=== PATIENT | female | born 1955 | race Caucasian/White ===

== ENCOUNTER 2016-11-10 12:43 | Emergency (ER) | payer MEDICAID ==
[2016-11-10 13:02] VITALS: BP 152/78
--- NOTE | 2016-11-10 14:27 | ED Physician Documentation ---
PD HPI Fall - Stated complaint Stated Complaint: L ANKLE INJ/RIBS AND CHEST PX - Chief complaint Chief Complaint: Ext Problem - History obtained from History obtained from: Patient, Family - History of Present Illness Mechanism of injury: Tripped Fall distance: Standing position Where injury occurred: Home Timing - onset: How many days ago (3) Injury(ies) location: Chest, Left Lower Extremity Quality of pain: Pain Associated symptoms: No: LOC, AMS, Amnesia, Seizures, Ear drainage, Nasal drainage Symptoms improve with: Rest, Ice Worsens with: Movement Contributing factors: No: Anticoagulated Similar symptoms before: Has not had sx before Recently seen: Not recently seen - Additional information Additional information: 60-year-old female Was walking down some stairs slipped and twisted her ankle and fell onto her right anterior chest. She has a lot of swelling over the dorsum and lateral aspect of the foot she has been walking on the ball of her foot on that side and over the last 3 days she has had increased pain in the right anterior chest wall. She does not have any shortness of breath or syncope. Review of Systems Constitutional: denies: Fever Nose: denies: Congestion Cardiac: reports: Chest pain / pressure Respiratory: denies: Cough GI: denies: Vomiting : denies: Dysuria, Frequency Skin: denies: Rash Musculoskeletal: reports: Joint pain, Joint swelling, Pain with weight bearing. 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 - Present Medications Home Medications: Ambulatory Orders Medication Instructions Recorded Confirmed Ibuprofen 200 mg PO Q6H PRN 01/14/16 01/14/16 HYDROcod/ACETAM 5/325 [[place] 5/325] 1 - 2 ea PO Q6H PRN #15 tablet 11/10/16 - Allergies Allergies/Adverse Reactions: Allergies Allergy/AdvReac Type Severity Reaction Status Date / Time Latex, Natural Rubber AdvReac Rash Verified 11/10/16 13:02 dairy products AdvReac Emesis Uncoded 11/10/16 13:02 - Social History Does the pt smoke?: Yes Smoking Status: Current every day smoker Does the pt drink ETOH?: Yes Does the pt have substance abuse?: Yes - Immunizations Immunizations are current?: Yes PD ED PE NORMAL - Vitals Vital signs reviewed: Yes (hypertension ) - General General: No acute distress, Well developed/nourished - HEENT HEENT: Atraumatic, PERRL - Neck Neck: Supple, no meningeal sign - Cardiac Cardiac: RRR, No murmur - Respiratory Respiratory: No respiratory distress, Other (course sounds on the right ) - Abdomen Abdomen: Soft, Non tender - Back Back: No CVA TTP, No spinal TTP - Derm Derm: Normal color, Warm and dry, No rash - Extremities Extremities: Other (There is swelling ecchymosis and tenderness to the lateral malleolus and no tenderness to the proximal fib or the proximal 5th MT. ) - Neuro Neuro: No motor deficit, No sensory deficit - Psych Psych: Normal mood, Normal affect Results - Vitals Vitals: Vital Signs - 24 hr 11/10/16 12:59 Temperature 36.6 C Heart Rate 83 Respiratory 14 Rate Blood Pressure 152/78 H O2 Saturation 100 Oxygen O2 Source Room air - Rads (name of study) ribs with PA chest Radiology: Prelim report reviewed (Impression: 1. No acute cardiopulmonary process.2. No fracture identified.), EMP read indepedently, See rad report Left ankle Radiology: Prelim report reviewed (Impression: 1. Small plantar calcaneal osteophyte formation. Cortical deformity at the distal fibula, possible old healed fracture. Prominent lateral soft tissue swelling.), EMP read indepedently, See rad report PD MEDICAL DECISION MAKING - ED course Complexity details: reviewed results, re-evaluated patient, considered differential, d/w patient, d/w family ED course: 60 y/o female with a GLF and injury to the ankle and chest wall has chest wall pain to palpation and a lot of ankle swelling and ecchymosis. She is placed into an ankle stirrup and given dexamethasone and we will provide a limited amount of pain medication. Departure - Departure Disposition: 01 Home, Self Care Clinical Impression: Chest wall contusion Qualifiers: Encounter type: initial encounter Laterality: right Qualified Code(s): S20.211A - Contusion of right front wall of thorax, initial encounter Ankle sprain Qualifiers: Encounter type: initial encounter Involved ligament of ankle: calcaneofibular ligament Laterality: right Qualified Code(s): S93.411A - Sprain of calcaneofibular ligament of right ankle, initial encounter Condition: Stable Instructions: ED Sprain Ankle W X Ray, ED Contusion Chest Wall Follow-Up: Geneva Woodward ARNP [Primary Care Provider] - Prescriptions: HYDROcod/ACETAM 5/325 [[place] 5/325] 1 - 2 ea PO Q6H PRN #15 tablet PRN Reason: Pain Discharge Date/Time: 11/10/16 14:50
--- NOTE | 2016-11-10 14:38 | XRAY Preliminary Report ---
Exam: XR Ankle 3 View LT IMPRESSION: 1. Small plantar calcaneal enthesophyte formation. 2. Cortical deformity in the distal fibula, possible old healed fracture. 3. Prominent lateral soft tissue swelling. [facility] SITE ID: [id number]
[2016-11-10] MEDS ORDERED: DEXAMETHASONE 10 MG/ML VIAL PO STA (14:39)
--- NOTE | 2016-11-10 14:40 | XRAY Preliminary Report ---
Exam: XR Ribs w/PA Chest RT IMPRESSION: 1. No acute cardio pulmonary process. 2. No fracture identified. [facility] SITE ID: [id number]
--- NOTE | 2016-11-10 14:41 | XRAY Report ---
EXAM: LEFT ANKLE RADIOGRAPHY EXAM DATE: 11/10/2016 01:45 PM. CLINICAL HISTORY: Pain after fall. COMPARISON: None. TECHNIQUE: 3 views. FINDINGS: Bones: Cortical deformity in the distal fibular metadiaphysis. This could represent an old healed fra cture. No definite acute fracture identified. Small plantar calcaneal enthesophyte formation. Joints: Mild tibiotalar joint space narrowing. Soft Tissues: Lateral soft tissue swelling. IMPRESSION: 1. Small plantar calcaneal enthesophyte formation. 2. Cortical deformity in the distal fibula, possible old healed fracture. 3. Prominent lateral soft tissue swelling. [facility] Referring Provider Line: [phone] SITE ID: [id number]
[2016-11-10] MEDS ORDERED: CHERRY SYRUP 10 ML UDC PO ONE (14:43)
[2016-11-10] MEDS ORDERED: DEXAMETHASONE 10 MG/ML VIAL ONE (14:43)
--- NOTE | 2016-11-10 14:43 | XRAY Report ---
EXAM: RIGHT RIB RADIOGRAPHY EXAM DATE: 11/10/2016 02:14 PM. CLINICAL HISTORY: Chest contusion. COMPARISON: None. TECHNIQUE: 3 views. FINDINGS: Heart size appears normal. No pulmonary consolidation or edema. No fracture identified. Degenerative changes in the acromioclavicular joints. IMPRESSION: 1. No acute cardio pulmonary process. 2. No fracture identified. [facility] Referring Provider Line: [phone] SITE ID: [id number]
== END 2016-11-10 14:50 | disposition home or self-care (01) ==
LOC: ED 12:43
DX: S20.211A Contusion of right front wall of thorax, initial encounter (principal); S93.411A Sprain of calcaneofibular ligament of right ankle, initial encounter; W10.8XXA Fall (on) (from) other stairs and steps, initial encounter; Y92.018 Other place in single-family (private) house as the place of occurrence of the external cause; F17.200 Nicotine dependence, unspecified, uncomplicated
CPT/HCPCS: 71101; 73610; 99283; A9270

== ENCOUNTER 2018-06-17 11:03 | Inpatient (IN) | payer MEDICAID ==
--- NOTE | 2018-06-17 12:27 | ED Physician Documentation ---
History of Present Illness - Stated complaint Stated Complaint: SOA/WEAKNESS - Chief complaint Chief Complaint: Resp - Additonal information Additional information: 62-year-old female presents the emergency department with increasing shortness of breath on exertion for a significant period of time. The patient reports increased peripheral edema over the past month in addition to the shortness of breath. The patient reports increasing generalized weakness. The patient does smoke daily. The patient denies fevers, chills, cough, congestion. The patient does report pain in her teeth and is concerned about a dental infection. Symptoms are described as moderate and worsening. No other associated symptoms. No triggering factors. No relieving factors Review of Systems Constitutional: reports: Fatigue. denies: Fever, Chills Eyes: denies: Discharge Ears: denies: Ear pain Nose: denies: Congestion Throat: reports: Dental pain / toothache. denies: Sore throat Cardiac: denies: Chest pain / pressure Respiratory: reports: Dyspnea GI: denies: Abdominal Pain : denies: Dysuria Skin: denies: Rash Musculoskeletal: denies: Neck pain Neurologic: reports: Generalized weakness. 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 - Present Medications Home Medications: Ambulatory Orders Medication Instructions Recorded Confirmed Ibuprofen 400 mg PO BID PRN 06/17/18 06/17/18 - Allergies Allergies/Adverse Reactions: Allergies Allergy/AdvReac Type Severity Reaction Status Date / Time Latex, Natural Rubber AdvReac Rash Verified 11/10/16 13:02 dairy products AdvReac Emesis Uncoded 11/10/16 13:02 - Social History Does the pt smoke?: Yes Smoking Status: Current every day smoker Does the pt drink ETOH?: Yes Does the pt have substance abuse?: Yes Substance Use and Type: Marijuana - Immunizations Immunizations are current?: Yes - POLST Patient has POLST: No PD ED PE NORMAL - General General: Alert and oriented X 3, No acute distress - HEENT HEENT: Atraumatic, PERRL, EOMI, Ears normal, Moist mucous membranes, Pharynx benign - Neck Neck: Supple, no meningeal sign - Cardiac Cardiac: RRR, Strong equal pulses - Respiratory Respiratory: No respiratory distress, Clear bilaterally - Abdomen Abdomen: Soft, Non tender, Non distended - Derm Derm: Normal color - Extremities Extremities: No deformity - Neuro Neuro: Alert and oriented X 3, Normal speech - Psych Psych: Normal mood Results - Vitals Vitals: Vital Signs - 24 hr 06/17/18 06/17/18 06/17/18 11:22 12:01 14:00 Temperature 36.8 C Heart Rate 97 95 95 Respiratory 16 12 20 Rate Blood Pressure 123/95 H 123/90 H 124/86 H O2 Saturation 100 100 99 Oxygen O2 Source Room air - EKG (time done) 12:23 Rate: Rate (enter#) Rhythm: NSR Intervals: Normal OK, QRS normal Ischemia: Non specific changes Compare to prior EKG: Old EKG unavailable - Labs Labs: Laboratory Tests 06/17/18 06/17/18 06/17/18 12:52 12:52 12:52 WBC 5.7 RBC 2.51 L Hgb 3.8 L* Hct 15.0 L* MCV 59.5 L MCH 15.0 L MCHC 25.2 L RDW 21.8 H Plt Count 157 MPV 8.9 Neut # (Auto) 4.1 Lymph # (Auto) 1.0 L Garden # (Auto) 0.4 Eos # (Auto) 0.1 Baso # (Auto) 0.1 Absolute Nucleated RBC 0.02 Nucleated RBC % 0.4 Manual Slide Review Indicated Platelet Estimate NORMAL (130-450,000) Platelet Morphology NORMAL APPEARANCE RBC Morph Micro Appear 1+ SCHISTOCYTES VBG pH VBG pCO2 VBG pO2 VBG HCO3 VBG Total CO2 VBG O2 Saturation VBG Base Excess Sodium 138 Potassium 3.4 L Chloride 100 L Carbon Dioxide 27 Anion Gap 11.0 BUN 11 Creatinine 0.5 Estimated GFR (MDRD) 126 Glucose 116 H Calcium 8.7 Total Bilirubin 1.1 H AST 22 ALT 14 Alkaline Phosphatase 103 Troponin I < 0.04 B-Natriuretic Peptide Total Protein 7.4 Albumin 3.7 Globulin 3.7 Albumin/Globulin Ratio 1.0 Lipase 39 Urine Color Urine Clarity Urine pH Ur Specific [place] Urine Protein Urine Glucose (UA) Urine Ketones Urine Occult Blood Urine Nitrite Urine Bilirubin Urine Urobilinogen Ur Leukocyte Esterase Ur Microscopic Review Urine Culture Comments 06/17/18 06/17/1806/17/19 12:52 12:52 13:20 WBC RBC Hgb Hct MCV MCH MCHC RDW Plt Count MPV Neut # (Auto) Lymph # (Auto) Garden # (Auto) Eos # (Auto) Baso # (Auto) Absolute Nucleated RBC Nucleated RBC % Manual Slide Review Platelet Estimate Platelet Morphology RBC Morph Micro Appear VBG pH 7.417 H VBG pCO2 42.8 VBG pO2 51.5 H VBG HCO3 27.0 VBG Total CO2 28.3 VBG O2 Saturation 83.2 H VBG Base Excess 2.2 H Sodium Potassium Chloride Carbon Dioxide Anion Gap BUN Creatinine Estimated GFR (MDRD) Glucose Calcium Total Bilirubin AST ALT Alkaline Phosphatase Troponin I B-Natriuretic Peptide 474 H Total Protein Albumin Globulin Albumin/Globulin Ratio Lipase Urine Color YELLOW Urine Clarity CLEAR Urine pH 8.0 H Ur Specific [place] 1.020 Urine Protein NEGATIVE Urine Glucose (UA) NEGATIVE Urine Ketones NEGATIVE Urine Occult Blood NEGATIVE Urine Nitrite NEGATIVE Urine Bilirubin NEGATIVE Urine Urobilinogen 1 (NORMAL) Ur Leukocyte Esterase NEGATIVE Ur Microscopic Review NOT INDICATED Urine Culture Comments NOT INDICATED PD MEDICAL DECISION MAKING - ED course ED course: The patient has a significantly low hemoglobin which appears to have been a slow insidious process. This may be from a gastric etiology on further discussion with the patient she takes ibuprofen daily, at least 400 mg twice daily. The patient is also a tobacco smoker. The patient will require admission to the hospital for a blood transfusion and further investigation. The findings and plan were discussed with the patient who understands and agrees to the plan. The case was discussed with the hospitalist Dr. Wylie who accepts the patient onto her service Departure - Departure Disposition: 66 [facility] DC/Xfer Clinical Impression: Severe anemia, High output congestive heart failure, Weakness, Dental infection Condition: Fair
--- NOTE | 2018-06-17 12:27 | XRAY Report ---
Reason: sob Procedure Date: 06/17/2018 Accession Number: [id number] / [id number] Procedure: XR - Chest 2 View X-Ray CPT Code: 74740 FULL RESULT: EXAM: CHEST RADIOGRAPHY EXAM DATE: 06/17/2018 12:17 PM. CLINICAL HISTORY: Chronic cough. Shortness of air. Worsening shortness of air with tachycardia. History of smoking. COMPARISON: RIBS W/PA CHEST RT 11/10/2016 1:44 PM. TECHNIQUE: 2 views. FINDINGS: Lungs/Pleura: Bronchial thickening. No dense consolidation . No pleural effusions. Hyperinflation. No pneumothorax. Mediastinum: Heart is enlarged. Aorta is tortuous. Aortic atherosclerosis. Other: Degenerative changes of the thoracic spine. IMPRESSION: 1. Hyperinflation. 2. Cardiomegaly. 3. Mild bronchial thickening which can be seen with bronchitis. Findings may also be the result of the patient's history of smoking. [facility]
[2018-06-17 13:05] LABS: VBG BASE EXCESS 2.2 mmol/L (-2 - +2); VBG PCO2 42.8 mmHg (41-51); VBG PH 7.417 (7.31-7.41); VBG PO2 51.5 mmHg (25-47); VBG TOTAL CO2 28.3 mmol/L (24-29)
[2018-06-17 13:14] LABS: BASOPHILS # (AUTO) 0.1 10^3/uL (0.0-0.1); BASOPHILS % (AUTO) 1.6 %; EOSINOPHILS # (AUTO) 0.1 10^3/uL (0.0-0.7); EOSINOPHILS % (AUTO) 1.2 %; LYMPHOCYTES % (AUTO) 17.9 %; MEAN CORPUSCULAR HGB CONC 25.2 g/dL (32.0-36.0); MEAN CORPUSCULAR VOLUME 59.5 fL (81.0-99.0); MEAN PLATELET VOLUME 8.9 fL (7.9-10.8); MONOCYTES # (AUTO) 0.4 10^3/uL (0.0-1.0); MONOCYTES % (AUTO) 7.3 %; NEUTROPHILS # (AUTO) 4.1 10^3/uL (1.5-6.6); PLT - PLATELET COUNT 157 10^3/uL (130-450); RED BLOOD COUNT 2.51 10^6/uL (4.20-5.40); RED CELL DISTRIBUTION WIDTH 21.8 % (12.0-15.0); WHITE BLOOD COUNT 5.7 x10^3/uL (4.8-10.8)
[2018-06-17 13:15] LABS: HGB - HEMOGLOBIN 3.8 g/dL (12.0-16.0)
[2018-06-17 13:25] LABS: ALBUMIN 3.7 g/dL (3.2-5.5); BILIRUBIN,TOTAL 1.1 mg/dL (0.2-1.0); CALCIUM 8.7 mg/dL (8.5-10.3); CREATININE 0.5 mg/dL (0.4-1.0); TOTAL PROTEIN 7.4 g/dL (6.7-8.2)
[2018-06-17 13:31] LABS: BILIRUBIN,URINE NEGATIVE (NEGATIVE); GLUCOSE, URINE (UA) NEGATIVE (NEGATIVE); KETONES,URINE (UA) NEGATIVE (NEGATIVE); LEUKOCYTE ESTERASE, URINE NEGATIVE (NEGATIVE); NITRITE,URINE NEGATIVE (NEGATIVE); OCCULT BLOOD,URINE NEGATIVE (NEGATIVE); PROTEIN,URINE NEGATIVE (NEGATIVE); UROBILINOGEN,URINE 1 (NORMAL) E.U./dL (NORMAL)
[2018-06-17 13:32] LABS: CLARITY,URINE CLEAR (CLEAR)
[2018-06-17 13:39] LABS: PLATELET ESTIMATE, MANUAL NORMAL (130-450,000) (NORMAL); PLATELET MORPHOLOGY NORMAL APPEARANCE (NORMAL)
[2018-06-17] MEDS ORDERED: LIDOCAINE 1% 2 ML VIAL ONE (13:50)
[2018-06-17] MEDS ORDERED: HYDROcod/ACETAM 10 MG/325 MG TABLET PO STA (14:20)
[2018-06-17] MEDS ORDERED: AMOXICILLIN 250 MG CAPSULE PO STA (14:20)
[2018-06-17] MEDS ORDERED: PROCHLORPERAZINE 10 MG/2 ML VIAL IVP PRN (14:59)
[2018-06-17] MEDS ORDERED: ONDANSETRON 4 MG/2 ML VIAL IVP PRN (14:59)
[2018-06-17] MEDS: FAMOTIDINE 20 MG/50 ML 50 ML IV SCH ×2 (15:47→21:10)
--- NOTE | 2018-06-17 15:48 | CONSULTATION NOTE ---
Referring Provider Consult Date: 06/17/18 Chief Complaint - Chief Complaint Chief Complaint: fatigue History of Present Illness - History of Present Illness HPI Comment/Other: 62 yo woman presented to the ER complaining of fatigue. Found to have a Hgb around 3. States she has had epigastric pain and dark stools for the past two months. She takes NSAIDs on a daily basis for arthritis. She believes she had a normal colonoscopy 5 years ago. 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 - POLST Patient has POLST: No Meds/Allgy - Home Medications Home Medications: Ambulatory Orders Medication Instructions Recorded Confirmed Ibuprofen 400 mg PO BID PRN 06/17/18 06/17/18 - Allergies Allergies/Adverse Reactions: Allergies Allergy/AdvReac Type Severity Reaction Status Date / Time Latex, Natural Rubber AdvReac Rash Verified 11/10/16 13:02 dairy products AdvReac Emesis Uncoded 11/10/16 13:02 Review of Systems - Constitutional Constitutional: reports: Fatigue - Gastrointestinal Gastrointestinal: reports: Abdominal pain, Change in bowel habits, Black stools Exam - Vital Signs Vital Signs: Vital Signs x48h Temp Pulse Resp BP Pulse Ox 06/17/18 14:00 95 20 124/86 H 99 06/17/18 12:01 95 12 123/90 H 100 06/17/18 11:22 36.8 C 97 16 123/95 H 100 - Physical Exam General Appearance: positive: No acute distress Eyes Bilateral: positive: Normal inspection ENT: positive: ENT inspection nml Neck: positive: Nml inspection Respiratory: positive: Chest non-tender Abdomen: positive: Non-tender Back: positive: Nml inspection Skin: positive: Color nml Extremities: positive: Non-tender Neurologic/Psychiatric: positive: Oriented x3 Conclusion/Plan - Diagnosis Diagnosis: GI bleed - Plan Plan: Pt most likely has an upper GI bleed. She would like to hold off on another colonoscopy for now. Plan for EGD tomorrow, after she has been transfused. - Lab Results Fish Bones: 06/17/18 12:52 06/17/18 12:52
[2018-06-17 15:56] LABS: INR 1.1 (0.8-1.2); PT - PROTHROMBIN TIME 12.8 secs (9.9-12.6)
[2018-06-17] MEDS ORDERED: SILVER NITRATE APPLICATOR TOP ONE (16:45)
[2018-06-17] MEDS: POTASSIUM CHLOR 10 MEQ/100 ML 10 MEQ/100 ML BAG IV SCH ×2 (17:29→18:41)
[2018-06-17] MEDS: SODIUM CHLORIDE FLUSH 0.9% 10 ML SYRINGE IVP SCH (17:36)
--- NOTE | 2018-06-17 17:51 | XRAY Report ---
Reason: CVC placement Procedure Date: 06/17/2018 Accession Number: [id number] / [id number] Procedure: XR - Chest for Line Placement CPT Code: FULL RESULT: EXAM: CHEST RADIOGRAPHY EXAM DATE: 06/17/2018 05:26 PM. CLINICAL HISTORY: CVC placement. COMPARISON: CHEST 2 VIEW 06/17/2018 12:07 PM. TECHNIQUE: 1 view. FINDINGS: Lungs/Pleura: Slight interval increase in interstitial opacities. Lung volumes are slightly increased. There is no focal consolidation. No pleural effusion or pneumothorax. Mediastinum: Prominent heart size. Interval placement of a right IJ central line to the upper SVC. Other: None. IMPRESSION: 1. Interval central line placement. 2. Increased interstitial markings which may be secondary to mild fluid overload versus acute or chronic interstitial pneumonitis. 3. No pneumothorax. 4. Prominent heart size. [facility]
[2018-06-17] MEDS: NICOTINE 14 MG PATCH TOP SCH (18:42)
[2018-06-17] MEDS ORDERED: AMPICILLIN/SULBACTAM 3 GM in SODIUM CHLORIDE 0.9% MINIBAG 100 ML IV SCH ×4 (19:00)
[2018-06-17] MEDS: ACETAMINOPHEN 325 MG TABLET PO PRN (19:47)
[2018-06-17] MEDS: SODIUM CHLORIDE FLUSH 0.9% 10 ML SYRINGE IVP PRN ×3 (20:04→23:09)
--- NOTE | 2018-06-17 20:18 | HISTORY & PHYSICAL EXAMINATION ---
DATE OF SERVICE: 06/17/2018 Physician: Geena Wylie MD HISTORY OF PRESENT ILLNESS: This is a 62-year-old white female with a history of smoking, suicidal attempt by insulin overdose in January 2016, for which she was hospitalized here and then transferred for inpatient psychiatric management. 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 She could not be fitted in, and they advised her to come to the ER, which she did today. Yesterday, she also broke off a tooth while eating and today she woke with severe swelling of her left lower face and jaw and wanted this evaluated also. In the emergency room, she described having severe dyspnea, mild orthopnea, edema of her legs and hands over the past 2 months and intermittent palpitations lasting several seconds. There were a few recent episodes of dizziness, but no syncope, and these were not associated with the palpitations. She denied any chest pain. Her labs returned back showing a hemoglobin of 3.8 with a severely low MCV, and she did report that she has had black stools for about 3-6 months. She admits to using Motrin daily for arthritic pain and especially a lot this morning because of the tooth pain. She is being admitted for management of severe anemia, probable gastrointestinal blood loss source, a dental infection, and she was found to have nonsustained ventricular tachycardia on patient monitor while in the ER, which correlated with her sensation of palpitations. She also has new congestive heart failure by clinical exam, which may be high output failure secondary to the severe anemia. PAST MEDICAL HISTORY: Suicide attempt 4 years ago, arthritis and smoking history. ALLERGIES: LATEX, NATURAL RUBBER AND LACTOSE INTOLERANCE. MEDICATIONS: Motrin 400 mg b.i.d. REVIEW OF SYSTEMS: She has "soft teeth" and prior dental problems. The patient had a very stressful year 1 year ago when she moved in with her [id number] and [id number], and their 2 teenage children. The [id number] from diabetic complications. Then, the [id number] suddenly after pneumonia, and the patient was in charge of the 2 teenage children and their house and belongings. During this time, she would be smoking an entire pack of cigarettes a day, which has now decreased to half pack a day, when she finished with handling their possessions and their house. She had no place to live and lived in her own car for the first 3 weeks of May. Now, she has her own place. She works daily 7 days a week with occasional days off. She denies fever, but has a morning cough. No diarrhea. She does have LUQ pain when eating spicy food or drinking coffee, or pressing over the stomach area for a year, and she herself is worried about an ulcer. A comprehensive review of systems was performed and the pertinent positives are listed, the rest are negative. SOCIAL HISTORY: Half a pack a day smoker, rare marijuana use, rare mixed drink intake, but 1 year ago during her increased stress, she was a heavy drinker of liquor, she reports. FAMILY HISTORY: Cancer in her father and CHF in her mother. She has 2 female children who are healthy. PHYSICAL EXAMINATION GENERAL: Middle-aged white female. She is in mild distress from swelling of her left lower jaw, which makes it too painful to smile. VITAL SIGNS: Blood pressure 130/60, heart rate 95 in sinus rhythm, afebrile, room air saturation 99%. HEENT: Mouth reveals a broken left lower first molar and soft tissue swelling around it, no bleeding. The lower jaw is swollen and edematous. There is no redness, there is warmth. Oral mucosa is moist. NECK: No JVD or lymph nodes. No thyromegaly. CHEST: Clear breath sounds are at the anterior bases. HEART: Heart sounds are distant. No audible murmur. There is no heave or gallop. ABDOMEN: Soft with positive bowel sounds. It is tender to deep palpation only in the left upper quadrant. There is no guarding, rebound or organomegaly. EXTREMITIES: Have 1+ edema to below the knees and in the arms 1+ edema to below the elbows. NEUROLOGIC: Grossly intact. LABORATORY DATA: Sodium 138, potassium 3.4, magnesium 2.1, normal BUN and creatinine. BNP 474. Troponin is normal, not detectable. Lipase normal. White blood count 5.7 with a normal differential, hemoglobin 3.8 with an MCV of 59, platelet count 157,000. INR normal at 1.1. Blood gas had pH of 7.41. Urinalysis was unremarkable with no bacteria seen. Chest x-ray: cardiomegaly and mild CHF. EKG: normal sinus rhythm, LVH with strain pattern. There was no old EKG available for comparison. IMPRESSION/DIAGNOSES 1. Gastrointestinal blood loss anemia. 2. Upper gastrointestinal bleed suspected, possibly from NSAID use. 3. High output heart failure suspected. 4. Ventricular tachycardia, correlate with sensation of palpitations. 5. Hypokalemia. 6. Dental abscess. 7. Nicotine dependence. PLAN: 1. Admit the patient on telemetry to a medical/surgical floor, begin blood transfusions after type and crossmatch. Four units will be ordered with Lasix in between units. 2. Surgery consult for upper endoscopy and if needed for colonoscopy. 3. Begin Pepcid IV and avoid nonsteroidals and aspirin-containing products. 4. Watch her I's and O's carefully and continue with diuretics daily. 5. Check troponins x3. 6. Obtain an Echo to evaluate LV and RV contractility. 7. Correct low potassium, which may be the cause for the V-tach. 8. Begin treatment for her dental abscess with Unasyn 3 grams IV every 6 hours, as well as pain medications, using Tylenol and codeine. 9. Nicotine patch will be ordered for her tobacco urges. 10. Sputum culture will be obtained for her complaint of a cough, which may be a smoker's cough, however. DEEP VENOUS THROMBOSIS PROPHYLAXIS: SCDs. CODE STATUS: FULL CODE. ATTESTATION: The patient is expected to be discharged or transferred to another facility within 96 hours: Yes. TD: 06/17/2018 18:46 MIK
[2018-06-17] MEDS: FUROSEMIDE 20 MG/2 ML VIAL IVP SCH (23:07)
[2018-06-18] MEDS ORDERED: SODIUM CHLORIDE 0.9% 500 ML IV ONE ×2 (01:02→05:14)
[2018-06-18] MEDS: ACETAMINOPHEN/CODEINE 300 MG/30 MG TABLET PO PRN ×3 (01:07→21:46)
[2018-06-18] MEDS: SODIUM CHLORIDE FLUSH 0.9% 10 ML SYRINGE IVP SCH ×4 (01:08→14:55)
[2018-06-18] MEDS: AMPICILLIN/SULBACTAM 3 GM in SODIUM CHLORIDE 0.9% MINIBAG 100 ML IV SCH ×4 (03:31→21:00)
[2018-06-18] MEDS: SODIUM CHLORIDE FLUSH 0.9% 10 ML SYRINGE IVP PRN ×5 (03:36→21:47)
[2018-06-18] MEDS: FUROSEMIDE 20 MG/2 ML VIAL IVP SCH ×2 (04:41→14:55)
[2018-06-18] MEDS: FAMOTIDINE 20 MG/50 ML 50 ML IV SCH (08:24)
--- NOTE | 2018-06-18 08:30 | ANESTHESIA ---
Pre-Anesthesia VS, & Labs - Diagnosis Diagnosis GI bleed - Procedure EGD Vital Signs: Temp Pulse Resp BP Pulse Ox 36.7 C 80 20 139/68 H 98 06/18/18 05:42 06/18/18 05:42 06/18/18 05:42 06/18/18 05:42 06/18/18 04:48 Height 5 ft 5 in Weight (kg) 75 kg Body Mass Index 27.8 - Is Patient ?: No, Not Applicable - Lab Results Current Lab Results: Laboratory Tests 06/18/18 01:11: Troponin I < 0.04 06/17/18 19:10: Troponin I < 0.04 06/17/18 14:00: Blood Type Cancelled, Antibody Screen Cancelled, Crossmatch IS Only See Detail 06/17/18 14:00: Blood Type O POSITIVE, Antibody Screen NEGATIVE, Crossmatch IS Only See Detail 06/17/18 12:52: PT 12.8 H, INR 1.1 06/17/18 12:52: Magnesium 2.1 06/17/18 12:52: Blood Type Recheck O POSITIVE 06/17/18 12:52: VBG pH 7.417 H, VBG pCO2 42.8, VBG pO2 51.5 H, VBG HCO3 27.0, VBG Total CO2 28.3, VBG O2 Saturation 83.2 H, VBG Base Excess 2.2 H 06/17/18 12:52: B-Natriuretic Peptide 474 H 06/17/18 12:52: Troponin I < 0.04 06/17/18 12:52: Sodium 138, Potassium 3.4 L, Chloride 100 L, Carbon Dioxide 27, Anion Gap 11.0, BUN 11, Creatinine 0.5, Estimated GFR (MDRD) 126, Glucose 116 H, Calcium 8.7, Total Bilirubin 1.1 H, AST 22, ALT 14, Alkaline Phosphatase 103, Total Protein 7.4, Albumin 3.7, Globulin 3.7, Albumin/Globulin Ratio 1.0, Lipase 39 06/17/18 12:52: WBC 5.7, RBC 2.51 L, Hgb 3.8 L*, Hct 15.0 L*, MCV 59.5 L, MCH 15.0 L, MCHC 25.2 L, RDW 21.8 H, Plt Count 157, MPV 8.9, Neut # (Auto) 4.1, Lymph # (Auto) 1.0 L, [place] # (Auto) 0.4, Eos # (Auto) 0.1, Baso # (Auto) 0.1, Absolute Nucleated RBC 0.02, Nucleated RBC % 0.4, Manual Slide Review Indicated, Platelet Estimate NORMAL (130-450,000), Platelet Morphology NORMAL APPEARANCE, RBC Morph Micro Appear 1+ SCHISTOCYTES Lab results reviewed: Yes Fish Bones: 06/17/18 12:52 06/17/18 12:52 Home Medications and Allergies Home Medications: Ambulatory Orders Ibuprofen 400 mg PO BID PRN 06/17/18 Active Medications Acetaminophen (Tylenol) 650 mg PO Q4HR PRN PRN Reason: Pain 1 to 4 Last Admin: 06/17/18 19:47 Dose: 650 mg Acetaminophen/Codeine Phosphate (Tylenol #3) 1 tab PO Q4HR PRN PRN Reason: PAIN Last Admin: 06/18/18 05:47 Dose: 1 tab Furosemide (Lasix Inj 20mg Vial) 20 mg IVP TID [facility] Stop: 06/18/18 21:59 Last Admin: 06/18/18 04:41 Dose: 20 mg Heparin Sodium (Beef Lung) () 30 - 50 unit IVP PRN PRN PRN Reason: Central Line Protocol (<24 hr) Famotidine (Pepcid 20 Mg/50 Ml) 50 mls @ 100 mls/hr IV BID [facility] Last Infusion: 06/17/18 21:40 Dose: Infused Ampicillin Sodium/Sulbactam (Sodium 3 gm/ Sodium Chloride) 100 mls @ 200 mls/hr IV Q6H [facility] Last Infusion: 06/18/18 04:24 Dose: Infused Nicotine (Nicoderm) 1 patch TOP DAILY [facility] Last Admin: 06/17/18 18:42 Dose: 1 patch Ondansetron HCl (Zofran Inj) 4 mg IVP Q6HR PRN PRN Reason: Nausea / Vomiting Polyethylene Glycol (Miralax) 17 gm PO DAILY [facility] Prochlorperazine Edisylate (Compazine Inj) 10 mg IVP Q6HR PRN PRN Reason: Nausea / Vomiting Sodium Chloride (Normal Saline Flush 0.9%) 10 ml IVP PRN PRN PRN Reason: NEEDED PER PROVIDER ORDERS Last Admin: 06/18/18 03:36 Dose: 10 ml Sodium Chloride (Normal Saline Flush 0.9%) 10 ml IVP 0100,0900,1700 PIERRE Last Admin: 06/18/18 04:45 Dose: 10 ml Sodium Chloride (Normal Saline Flush 0.9%) 20 ml IVP PRN PRN PRN Reason: After Blood Draw Ibuprofen 400 mg PO BID PRN 06/17/18 Allergies/Adverse Reactions: Allergies Allergy/AdvReac Type Severity Reaction Status Date / Time Latex, Natural Rubber AdvReac Rash Verified 11/10/16 13:02 dairy products AdvReac Emesis Uncoded 11/10/16 13:02 Anes History & Medical History - Medical History Cardiovascular: reports: None Pulmonary: reports: None Gastrointestinal: reports: Other Urinary: reports: None Musculoskeletal: reports: None Endocrine/Autoimmune: reports: None Skin: reports: None Smoking Status: Current every day smoker - Surgical History Gynecologic: section
--- NOTE | 2018-06-18 08:32 | ANESTHESIA ---
Pre-Anesthesia VS, & Labs - Diagnosis Diagnosis GI bleed - Procedure EGD Vital Signs: Temp Pulse Resp BP Pulse Ox 36.7 C 80 20 139/68 H 98 06/18/18 05:42 06/18/18 05:42 06/18/18 05:42 06/18/18 05:42 06/18/18 04:48 Height 5 ft 5 in Weight (kg) 75 kg Body Mass Index 27.8 - NPO >8 hours - Is Patient ?: No, Not Applicable - Lab Results Current Lab Results: Laboratory Tests 06/18/18 01:11: Troponin I < 0.04 06/17/18 19:10: Troponin I < 0.04 06/17/18 14:00: Blood Type Cancelled, Antibody Screen Cancelled, Crossmatch IS Only See Detail 06/17/18 14:00: Blood Type O POSITIVE, Antibody Screen NEGATIVE, Crossmatch IS Only See Detail 06/17/18 12:52: PT 12.8 H, INR 1.1 06/17/18 12:52: Magnesium 2.1 06/17/18 12:52: Blood Type Recheck O POSITIVE 06/17/18 12:52: VBG pH 7.417 H, VBG pCO2 42.8, VBG pO2 51.5 H, VBG HCO3 27.0, VBG Total CO2 28.3, VBG O2 Saturation 83.2 H, VBG Base Excess 2.2 H 06/17/18 12:52: B-Natriuretic Peptide 474 H 06/17/18 12:52: Troponin I < 0.04 06/17/18 12:52: Sodium 138, Potassium 3.4 L, Chloride 100 L, Carbon Dioxide 27, Anion Gap 11.0, BUN 11, Creatinine 0.5, Estimated GFR (MDRD) 126, Glucose 116 H, Calcium 8.7, Total Bilirubin 1.1 H, AST 22, ALT 14, Alkaline Phosphatase 103, Total Protein 7.4, Albumin 3.7, Globulin 3.7, Albumin/Globulin Ratio 1.0, Lipase 39 06/17/18 12:52: WBC 5.7, RBC 2.51 L, Hgb 3.8 L*, Hct 15.0 L*, MCV 59.5 L, MCH 15.0 L, MCHC 25.2 L, RDW 21.8 H, Plt Count 157, MPV 8.9, Neut # (Auto) 4.1, L ymph # (Auto) 1.0 L, [place] # (Auto) 0.4, Eos # (Auto) 0.1, Baso # (Auto) 0.1, Absolute Nucleated RBC 0.02, Nucleated RBC % 0.4, Manual Slide Review Indicated, Platelet Estimate NORMAL (130-450,000), Platelet Morphology NORMAL APPEARANCE, RBC Morph Micro Appear 1+ SCHISTOCYTES Fish Bones: 06/17/18 12:52 06/17/18 12:52 Home Medications and Allergies Home Medications: Ambulatory Orders Ibuprofen 400 mg PO BID PRN 06/17/18 Active Medications Acetaminophen (Tylenol) 650 mg PO Q4HR PRN PRN Reason: Pain 1 to 4 Last Admin: 06/17/18 19:47 Dose: 650 mg Acetaminophen/Codeine Phosphate (Tylenol #3) 1 tab PO Q4HR PRN PRN Reason: PAIN Last Admin: 06/18/18 05:47 Dose: 1 tab Furosemide (Lasix Inj 20mg Vial) 20 mg IVP TID [facility] Stop: 06/18/18 21:59 Last Admin: 06/18/18 04:41 Dose: 20 mg Heparin Sodium (Beef Lung) () 30 - 50 unit IVP PRN PRN PRN Reason: Central Line Protocol (<24 hr) Famotidine (Pepcid 20 Mg/50 Ml) 50 mls @ 100 mls/hr IV BID [facility] Last Admin: 06/18/18 08:24 Dose: 100 mls/hr Ampicillin Sodium/Sulbactam (Sodium 3 gm/ Sodium Chloride) 100 mls @ 200 mls/hr IV Q6H [facility] Last Infusion: 06/18/18 04:24 Dose: Infused Nicotine (Nicoderm) 1 patch TOP DAILY [facility] Last Admin: 06/17/18 18:42 Dose: 1 patch Ondansetron HCl (Zofran Inj) 4 mg IVP Q6HR PRN PRN Reason: Nausea / Vomiting Polyethylene Glycol (Miralax) 17 gm PO DAILY [facility] Prochlorperazine Edisylate (Compazine Inj) 10 mg IVP Q6HR PRN PRN Reason: Nausea / Vomiting Sodium Chloride (Normal Saline Flush 0.9%) 10 ml IVP PRN PRN PRN Reason: NEEDED PER PROVIDER ORDERS Last Admin: 06/18/18 08:20 Dose: 10 ml Sodium Chloride (Normal Saline Flush 0.9%) 10 ml IVP 0100,0900,1700 PIERRE Last Admin: 06/18/18 08:16 Dose: 10 ml Sodium Chloride (Normal Saline Flush 0.9%) 20 ml IVP PRN PRN PRN Reason: After Blood Draw Ibuprofen 400 mg PO BID PRN 06/17/18 Allergies/Adverse Reactions: Allergies Allergy/AdvReac Type Severity Reaction Status Date / Time Latex, Natural Rubber AdvReac Rash Verified 11/10/16 13:02 dairy products AdvReac Emesis Uncoded 11/10/16 13:02 Anes History & Medical History - Anesthetic History Anesthesia Complications: reports: No previous complications Family history of Anesthesia Complications: Denies Family history of Malignant Hyperthermia: Denies - Medical History Cardiovascular: reports: None Pulmonary: reports: None Gastrointestinal: reports: Other Urinary: reports: None Musculoskeletal: reports: None Endocrine/Autoimmune: reports: None Skin: reports: None Smoking Status: Current every day smoker - Surgical History Gynecologic: section Exam General: Alert, Oriented x3, Cooperative, No acute distress Dental: Other (bad teeth with abcess by one tooth) Mouth Openin Fingerbreadth Neck Mobility: Normal Mallampati classification: III Thyromental Distance: 4-6 cm Respiratory: Lungs clear Cardiovascular: Regular rate, Normal S1, Normal S2, No murmurs Cognitive Status: Within normal limits Plan Anesthesia Type: MAC Consent for Procedure(s) Verified and Reviewed: No Code Status: Attempt Resuscitation ASA classification: 2-Mild systemic disease Is this case an emergency?: Yes
[2018-06-18] MEDS ORDERED: EPINEPHrine 1 MG/ML AMP ONE (08:42)
[2018-06-18 09:00] LABS: BASOPHILS # (AUTO) 0.1 10^3/uL (0.0-0.1); BASOPHILS % (AUTO) 0.9 %; EOSINOPHILS # (AUTO) 0.1 10^3/uL (0.0-0.7); EOSINOPHILS % (AUTO) 1.1 %; HGB - HEMOGLOBIN 8.3 g/dL (12.0-16.0); LYMPHOCYTES # (AUTO) 0.6 10^3/uL (1.5-3.5); LYMPHOCYTES % (AUTO) 8.1 %; MEAN CORPUSCULAR HEMOGLOBIN 21.7 pg (27.0-31.0); MEAN CORPUSCULAR HGB CONC 31.1 g/dL (32.0-36.0); MEAN PLATELET VOLUME 8.5 fL (7.9-10.8); MONOCYTES # (AUTO) 0.5 10^3/uL (0.0-1.0); MONOCYTES % (AUTO) 7.4 %; NEUTROPHILS # (AUTO) 5.7 10^3/uL (1.5-6.6); NEUTROPHILS % (AUTO) 82.5 %; PLT - PLATELET COUNT 127 10^3/uL (130-450); RED BLOOD COUNT 3.84 10^6/uL (4.20-5.40); WHITE BLOOD COUNT 6.9 x10^3/uL (4.8-10.8)
[2018-06-18] MEDS ORDERED: NICOTINE 14 MG PATCH TOP SCH (09:00)
[2018-06-18 09:02] LABS: CALCIUM 8.6 mg/dL (8.5-10.3); CREATININE 0.5 mg/dL (0.4-1.0)
[2018-06-18] MEDS ORDERED: LACTATED RINGERS 1,000 ML IV ONE (09:11)
[2018-06-18 09:23] LABS: PLATELET MORPHOLOGY RARE GIANT PLATELETS (NORMAL)
[2018-06-18 09:24] LABS: PLATELET ESTIMATE, MANUAL NORMAL (130-450,000) (NORMAL)
--- NOTE | 2018-06-18 09:24 | IMMEDIATE POSTOPERATIVE NOTE ---
Immediate Postoperative Note - Procedure Note Procedure Date: 06/18/18 Pre-Op Diagnosis: GI bleed Procedure: EGD Post-Op Diagnosis: normal Primary Surgeon: salima Anesthesia Type: Moderate sedation Complications: No complications Estimated Blood Loss (in cc): 0 Plan of Care: future colonoscopy
[2018-06-18] MEDS ORDERED: PROPOFOL 200 MG/20 ML VIAL IVP ONE (09:30)
[2018-06-18] MEDS ORDERED: LIDOCAINE-MPF 2% 5 ML VIAL IM ONE (09:30)
[2018-06-18] MEDS: NICOTINE 14 MG PATCH TOP SCH (10:09)
[2018-06-18] MEDS: POLYETHYLENE GLYCOL 3350 17 GM PACKET PO SCH (10:18)
--- NOTE | 2018-06-18 10:50 | PROVIDER PROGRESS NOTE ---
Assessment/Plan - Problem List (1) Anemia due to GI blood loss Assessment/Plan: The EGD showed no signs of bleeding. Dr Harding advised an outpatient colonoscopy. Hgb up to 8.3 after 4U PRBCs total transfused. Patient will be restarted on solid food, continue Pepcid. Will now begin bid Iron replacement. A stool guiac is still pending. Check orthostatic VS in am and then begin ambulating. (2) High output congestive heart failure Assessment/Plan: Echo showed a preserved LVEF. Troponins are neg x3 Her BNP has dropped. She is (-)2000cc fluid balance thanks to Lasix diuresis between the units of blood transfused. Will plan Lasix po and Spironolactone (see below) for gentle diuresis. Will resume diet after EGD, low salt. (3) Dental infection Assessment/Plan: Continue iv Unasyn, which has helped with swelling already. Add Florastor. Continue Tylenol w/ Cod prn pain. (4) Severe anemia Assessment/Plan: as in #1 (5) Hypokalemia due to loss of potassium Assessment/Plan: Replace K. Monitor BMP daily while getting diuresis. (6) Pulmonary HTN Assessment/Plan: PA pressure is 63 mmHg by Echo exam, signifying moderate-severe pulm HTN. This is likely from cigarette smoking and may also be adding to the HOLDEN. Spironolactone will be added to her diuretic management. Smoking cessation was discussed with patient. Nicotine patch ordered while she is here. (7) Tobacco dependence due to cigarettes Assessment/Plan: Will start Duoneb nebs while here and prescribe new Advair at [facility]. - Current Meds Current Meds: Current Medications Generic Name Dose Route Start Last Admin Trade Name Freq PRN Reason Stop Dose Admin Acetaminophen 650 mg 06/17/18 14:59 06/17/18 19:47 Tylenol PO 650 mg Q4HR PRN Administration Pain 1 to 4 Acetaminophen/Codeine Phosphate 1 tab 06/17/18 18:23 06/18/18 05:47 Tylenol #3 PO 1 tab Q4HR PRN Administration PAIN Furosemide 20 mg 06/17/18 22:00 06/18/18 04:41 Lasix Inj 20mg Vial IVP 06/18/18 21:59 20 mg TID PIERRE Administration Famotidine 50 mls @ 100 mls/hr 06/17/18 15:01 06/18/18 10:08 Pepcid 20 Mg/50 Ml IV Infused BID PIERRE Infusion Ampicillin Sodium/Sulbactam 100 mls @ 200 mls/hr 06/18/18 03:00 06/18/18 10:08 Sodium 3 gm/ Sodium Chloride IV 200 mls/hr Q6H PIERRE Administration Nicotine 1 patch 06/17/18 17:46 06/18/18 10:09 Nicoderm TOP 1 patch DAILY PIERRE Administration Polyethylene Glycol 17 gm 06/18/18 09:00 06/18/18 10:18 Miralax PO 17 gm DAILY PIERRE Administration Sodium Chloride 10 ml 06/17/18 14:59 06/18/18 09:02 Normal Saline Flush 0.9% IVP 10 ml PRN PRN Administration NEEDED PER PROVIDER ORDERS Sodium Chloride 10 ml 06/17/18 17:00 06/18/18 08:16 Normal Saline Flush 0.9% IVP 10 ml 0100,0900,1700 PIERRE Administration - Lab Result Fish Bone Diagrams: 06/18/18 08:28 06/18/18 08:28 - Additional Planning My Orders: My Active Orders 06/17/18 14:00 RBC, LEUKOREDUCED Routine 06/17/18 14:59 Activity Orders [RC] Q2HR IO [RC] IOSHIFT Initiate Bowel Care Protocol [RC] .protocol Initiate Line Care Protocol [RC] .protocol Initiate Line Care Protocol [RC] QSHIFT Initiate Personal Care Protoco [RC] .protocol Oxygen Therapy [RC] .PRN Telemetry- [RC] Q4HR Vital Signs [RC] Q4HR Acetaminophen [Tylenol] 650 mg PO Q4HR PRN Ondansetron Inj [Zofran Inj] 4 mg IVP Q6HR PRN Prochlorperazine Inj [Compazine Inj] 10 mg IVP Q6HR PRN Sodium Chloride Flush 0.9% [Normal Saline Flush 0.9%] 10 ml IVP PRN PRN Code Status [OTHERS] Routine Condition of Patient [OTHERS] Routine DVT Prophylaxis [OTHERS] Routine 06/17/18 15:01 Daily Weight [RC] 0600 IV Insert [RC] .ONCE SCDs [RC] QSHIFT Famotidine 20 mg/50 ml [Pepcid 20 mg/50 ml] 50 ml IV BID 06/17/18 15:37 Echo Transthoracic Complete [ECHO] Stat 06/17/18 15:41 Transfuse RBCs Leukoreduced [RC] .ONCE 06/17/18 15:49 Miscellaenous Nursing Order [RC] QSHIFT 06/17/18 16:02 Initiate Line Care Protocol [RC] .protocol 06/17/18 16:10 Tobacco Cessation [RC] .ONCE 06/17/18 17:00 Sodium Chloride Flush 0.9% [Normal Saline Flush 0.9%] 10 ml IVP 0100,0900,1700 06/17/18 17:31 Transfuse RBCs Leukoreduced [RC] .ONCE 06/17/18 17:46 Nicotine 14 mg Patch [Nicoderm] 1 patch TOP DAILY 06/17/18 18:22 Miscellaenous Nursing Order [RC] ONCE 06/17/18 18:23 Acetaminophen/Cod 300/30 [Tylenol #3] 1 tab PO Q4HR PRN 06/17/18 18:35 CUL, RESPIRATORY [RM] Stat 06/17/18 22:00 FUROSEMIDE INJ 20mg VIAL [LASIX INJ 20mg VIAL] 20 mg IVP TID 06/18/18 00:01 DIET [NPO except Meds] [DIET] 06/18/18 03:00 Ampicillin/Sulbactam [Unasyn] 3 gm Sodium Chloride 0.9% Minibag [Normal Saline 0.9% Minibag] 100 ml IV Q6H 06/18/18 05:41 Heparin Flush 30 - 50 unit IVP PRN PRN Sodium Chloride Flush 0.9% [Normal Saline Flush 0.9%] 20 ml IVP PRN PRN 06/18/18 09:00 Polyethylene Glycol 3350 [Miralax] 17 gm PO DAILY 06/18/18 11:00 Potassium Chloride [K-Dur] 20 meq PO 1100,1500 06/18/18 Lunch DIET [Low Sodium Diet] [DIET] 06/19/18 05:00 BMP - BASIC METABOLIC PANEL [CHEM] DAILYLAB CBC - COMP BLD CT W/AUTO DIFF [HEME] DAILYLAB 06/20/18 05:00 BMP - BASIC METABOLIC PANEL [CHEM] DAILYLAB CBC - COMP BLD CT W/AUTO DIFF [HEME] DAILYLAB Objective Vital Signs: Vital Signs - 24 hr 06/17/18 06/17/18 06/17/18 11:22 12:01 14:00 Temperature 36.8 C Heart Rate 97 95 95 Heart Rate [ Brachial] Respiratory 16 12 20 Rate Blood Pressure 123/95 H 123/90 H 124/86 H Blood Pressure [Left Brachial artery] O2 Saturation 100 100 99 06/17/18 06/17/18 06/17/18 15:25 16:23 16:43 Temperature 36.8 C 36.8 C 37.6 C H Heart Rate 89 86 Heart Rate [ 101 H Brachial] Respiratory 16 16 16 Rate Blood Pressure 130/59 L 131/72 H Blood Pressure 144/66 H [Left Brachial artery] O2 Saturation 99 06/17/18 06/17/18 06/17/18 19:25 19:26 19:36 Temperature 36.6 C 36.6 C 36.6 C Heart Rate 83 83 Heart Rate [ 84 Brachial] Respiratory 18 18 18 Rate Blood Pressure 140/69 H 140/69 H Blood Pressure 140/69 H [Left Brachial artery] O2 Saturation 100 06/17/18 06/17/18 06/18/18 19:55 23:00 00:10 Temperature 36.6 C 36.5 C 36.5 C Heart Rate 89 90 Heart Rate [ 91 Brachial] Respiratory 18 18 18 Rate Blood Pressure 135/67 H 149/66 H Blood Pressure 150/65 H [Left Brachial artery] O2 Saturation 98 06/18/18 06/18/18 06/18/18 01:23 01:45 04:36 Temperature 36.8 C 36.7 C 36.8 C Heart Rate 84 80 84 Heart Rate [ Brachial] Respiratory 20 20 20 Rate Blood Pressure 139/61 H 137/62 H 138/59 H Blood Pressure [Left Brachial artery] O2 Saturation 06/18/18 06/18/18 06/18/18 04:48 05:02 05:42 Temperature 36.8 C 36.8 C 36.7 C Heart Rate 86 80 Heart Rate [ 87 Brachial] Respiratory 18 20 20 Rate Blood Pressure 142/65 H 139/68 H Blood Pressure 138/59 H [Left Brachial artery] O2 Saturation 98 06/18/18 06/18/18 08:20 09:00 Temperature 37.2 C 36.7 C Heart Rate Heart Rate [ 80 88 Brachial] Respiratory 17 20 Rate Blood Pressure Blood Pressure 142/62 H 136/65 H [Left Brachial artery] O2 Saturation 99 98 Oxygen O2 Source Nasal cannula I&O (Last 24 Hrs): Intake and Output Totals x24h 06/16/18 06/17/18 06/18/18 23:59 23:59 23:59 Intake Total 1744 500 Output Total 600 3550 Balance 1144 -3050 General: No acute distress HEENT: Atraumatic, Mucous membr. moist/pink, Other (Less pale) Neck: Supple, No JVD Neuro: Non Focal Cardiovascular: Regular rate, No murmurs Respiratory: No respiratory distress, Breath sounds nml Abdomen: Normal bowel sounds, Soft Extremities: Other (trace ankle and finger edema) - Results Results: Laboratory Results WBC 6.9 x10^3/uL (4.8-10.8) 06/18/18 08:28 RBC 3.84 10^6/uL (4.20-5.40) L 06/18/18 08:28 Hgb 8.3 g/dL (12.0-16.0) L 06/18/18 08:28 Hct 26.9 % (37.0-47.0) L 06/18/18 08:28 MCV 70.0 fL (81.0-99.0) L 06/18/18 08:28 MCH 21.7 pg (27.0-31.0) L 06/18/18 08:28 MCHC 31.1 g/dL (32.0-36.0) L 06/18/18 08:28 RDW 34.0 % (12.0-15.0) H 06/18/18 08:28 Plt Count 127 10^3/uL (130-450) L 06/18/18 08:28 MPV 8.5 fL (7.9-10.8) 06/18/18 08:28 Neut # (Auto) 5.7 10^3/uL (1.5-6.6) 06/18/18 08:28 Lymph # (Auto) 0.6 10^3/uL (1.5-3.5) L 06/18/18 08:28 [place] # (Auto) 0.5 10^3/uL (0.0-1.0) 06/18/18 08:28 Eos # (Auto) 0.1 10^3/uL (0.0-0.7) 06/18/18 08: Baso # (Auto) 0.1 10^3/uL (0.0-0.1) 06/18/18 08: Absolute Nucleated RBC 0.02 x10^3/uL 06/18/18 08: Nucleated RBC % 0.4 /100WBC 06/18/18 08: Manual Slide Review Indicated 06/18/18 08: Platelet Estimate NORMAL (130-450,000) (NORMAL) 06/18/18 08: Platelet Morphology RARE GIANT PLATELETS (NORMAL) 06/18/18 08: RBC Morph Micro Appear 3+ ANISOCYTOSIS (NORMAL) 1+ POLYCHROMASIA (NORMAL) 4+ HYPOCHROMASIA (NORMAL) 1+ OVALOCYTES (NORMAL) 1+ SCHISTOCYTES (NORMAL) 06/17/18 12:52 RBC Morph Micro Appear 3+ ANISOCYTOSIS (NORMAL) 1+ POLYCHROMASIA (NORMAL) 4+ HYPOCHROMASIA (NORMAL) 1+ OVALOCYTES (NORMAL) 1+ SCHISTOCYTES (NORMAL) 0 06/17/18 12:52 RBC Morph Micro Appear 3+ ANISOCYTOSIS (NORMAL) 1+ POLYCHROMASIA (NORMAL) 4+ HYPOCHROMASIA (NORMAL) 1+ OVALOCYTES (NORMAL) 1+ SCHISTOCYTES (NORMAL) 06/17/18 12:52 RBC Morph Micro Appear 3+ ANISOCYTOSIS (NORMAL) 1+ POLYCHROMASIA (NORMAL) 4+ HYPOCHROMASIA (NORMAL) 1+ OVALOCYTES (NORMAL) 1+ SCHISTOCYTES (NORMAL) 06/17/18 12:52 RBC Morph Micro Appear 2+ ANISOCYTOSIS (NORMAL) 2+ HYPOCHROMASIA (NORMAL) 2+ MICROCYTOSIS (NORMAL) 06/18/18 08:28 RBC Morph Micro Appear 2+ ANISOCYTOSIS (NORMAL) 2+ HYPOCHROMASIA (NORMAL) 2+ MICROCYTOSIS (NORMAL) 06/18/18 08: RBC Morph Micro Appear 2+ ANISOCYTOSIS (NORMAL) 2+ HYPOCHROMASIA (NORMAL) 2+ MICROCYTOSIS (NORMAL) 06/18/18 08: PT 12.8 secs (9.9-12.6) H 06/17/18 12:52 INR 1.1 (0.8-1.2) 06/17/18 12:52 VBG pH 7.417 (7.31-7.41) H 06/17/18 12:52 VBG pCO2 42.8 mmHg (41-51) 06/17/18 12:52 VBG pO2 51.5 mmHg (25-47) H 06/17/18 12:52 VBG HCO3 27.0 mmol/L (23-28) 06/17/18 12:52 VBG Total CO2 28.3 mmol/L (24-29) 06/17/18 12:52 VBG O2 Saturation 83.2 % (60-80) H 06/17/18 12:52 VBG Base Excess 2.2 mmol/L (-2 - +2) H 06/17/18 12:52 Sodium 136 mmol/L (135-145) 06/18/18 08:28 Potassium 3.0 mmol/L (3.5-5.0) L 06/18/18 08:28 Chloride 99 mmol/L (101-111) L 06/18/18 08:28 Carbon Dioxide 26 mmol/L (21-32) 06/18/18 08:28 Anion Gap 11.0 (6-13) 06/18/18 08:28 BUN 7 mg/dL (6-20) 06/18/18 08:28 Creatinine 0.5 mg/dL (0.4-1.0) 06/18/18 08:28 Estimated GFR (MDRD) 126 (>89) 06/18/18 08:28 Glucose 102 mg/dL (70-100) H 06/18/18 08:28 Calcium 8.6 mg/dL (8.5-10.3) 06/18/18 08:28 Magnesium 2.1 mg/dL (1.7-2.8) 06/17/18 12:52 Total Bilirubin 1.1 mg/dL (0.2-1.0) H 06/17/18 12:52 AST 22 IU/L (10-42) 06/17/18 12:52 ALT 14 IU/L (10-60) 06/17/18 12:52 Alkaline Phosphatase 103 IU/L (42-121) 06/17/18 12:52 Troponin I < 0.04 ng/mL (<0.49) 06/18/18 01:11 B-Natriuretic Peptide 426 pg/mL (5-100) H 06/18/18 08:28 Total Protein 7.4 g/dL (6.7-8.2) 06/17/18 12:52 Albumin 3.7 g/dL (3.2-5.5) 06/17/18 12:52 Globulin 3.7 g/dL (2.1-4.2) 06/17/18 12:52 Albumin/Globulin Ratio 1.0 (1.0-2.2) 06/17/18 12:52 Lipase 39 U/L (22-51) 06/17/18 12:52 Urine Color YELLOW 06/17/18 13:20 Urine Clarity CLEAR (CLEAR) 06/17/18 13:20 Urine pH 8.0 PH (5.0-7.5) H 06/17/18 13:20 Ur Specific [place] 1.020 (1.002-1.030) 06/17/18 13:20 Urine Protein NEGATIVE mg/dL (NEGATIVE) 06/17/18 13:20 Urine Glucose (UA) NEGATIVE mg/dL (NEGATIVE) 06/17/18 13:20 Urine Ketones NEGATIVE mg/dL (NEGATIVE) 06/17/18 13:20 Urine Occult Blood NEGATIVE (NEGATIVE) 06/17/18 13:20 Urine Nitrite NEGATIVE (NEGATIVE) 06/17/18 13:20 Urine Bilirubin NEGATIVE (NEGATIVE) 06/17/18 13:20 Urine Urobilinogen 1 (NORMAL) E.U./dL (NORMAL) 06/17/18 13:20 Ur Leukocyte Esterase NEGATIVE (NEGATIVE) 06/17/18 13:20 Ur Microscopic Review NOT INDICATED 06/17/18 13:20 Urine Culture Comments NOT INDICATED 06/17/18 13:20 Blood Type O POSITIVE 06/17/18 14:00 Blood Type Recheck O POSITIVE 06/17/18 12:52 Antibody Screen NEGATIVE 06/17/18 14:00 Crossmatch IS Only See Detail 06/17/18 14:00 - Procedures Procedures: Procedures ENDOSC POLYPECTOMY OF LG INTEST (05/01/14)
[2018-06-18] MEDS ORDERED: IPRATROPIUM/ALBUTEROL 3 ML NEB INH PRN (11:03)
[2018-06-18] MEDS: FERROUS GLUCONATE 324 MG TABLET PO SCH ×2 (11:59→18:02)
[2018-06-18] MEDS: POTASSIUM CHLORIDE 20 MEQ TABLET PO SCH ×2 (11:59→15:05)
[2018-06-18] MEDS ORDERED: FERROUS GLUCONATE 324 MG TABLET PO SCH (12:00)
[2018-06-18] MEDS: SPIRONOLACTONE 25 MG TABLET PO SCH (12:04)
[2018-06-18] MEDS: FUROSEMIDE 20 MG TABLET PO SCH (12:04)
--- NOTE | 2018-06-18 12:08 | OPERATIVE REPORT ---
DATE OF SERVICE: 06/18/2018 Physician: Radu Harding MD PREOPERATIVE DIAGNOSIS: Gastrointestinal bleeding. POSTOPERATIVE DIAGNOSIS: Normal esophagogastroduodenoscopy. PROCEDURE: Esophagogastroduodenoscopy. INDICATIONS FOR PROCEDURE: The patient is a 62-year-old woman who came to the ER complaining of weakness. She was found to have a hemoglobin of around 3. She had also noted melanotic stools for the past few months. PROCEDURE IN DETAIL: The risks and benefits were explained to the patient, she agreed to the procedure. She was taken to the operating room, given sedation. A timeout was performed and everyone in the room agreed to the procedure. We inserted a well-lubricated endoscope into the oral cavity, and down to the second portion of the duodenum without difficulty. No blood was encountered on entry. The scope was then slowly withdrawn while insufflating. No abnormalities were seen in the duodenum or stomach, even on retroflexion. There were no signs of any abnormalities in the esophagus either. The scope was then slowly withdrawn completely from the oral cavity, and the procedure terminated. The patient tolerated it well. PLAN: Perform a colonoscopy at a future date. TD: 06/18/2018 09:29 MIK
[2018-06-18] MEDS: ACETAMINOPHEN 325 MG TABLET PO PRN (12:10)
[2018-06-18] MEDS: SACCHAROMYCES BOULARDII 250 MG CAPSULE PO SCH (18:03)
[2018-06-19] MEDS: AMPICILLIN/SULBACTAM 3 GM in SODIUM CHLORIDE 0.9% MINIBAG 100 ML IV SCH ×4 (02:55→20:58)
[2018-06-19] MEDS: SODIUM CHLORIDE FLUSH 0.9% 10 ML SYRINGE IVP PRN ×3 (02:58→21:45)
[2018-06-19 06:03] LABS: CALCIUM 8.9 mg/dL (8.5-10.3); CREATININE 0.5 mg/dL (0.4-1.0)
[2018-06-19 06:19] LABS: BASOPHILS # (AUTO) 0.1 10^3/uL (0.0-0.1); BASOPHILS % (AUTO) 1.3 %; EOSINOPHILS # (AUTO) 0.1 10^3/uL (0.0-0.7); HGB - HEMOGLOBIN 9.2 g/dL (12.0-16.0); LYMPHOCYTES # (AUTO) 1.1 10^3/uL (1.5-3.5); LYMPHOCYTES % (AUTO) 14.7 %; MEAN CORPUSCULAR HEMOGLOBIN 21.4 pg (27.0-31.0); MEAN CORPUSCULAR HGB CONC 30.3 g/dL (32.0-36.0); MEAN CORPUSCULAR VOLUME 70.6 fL (81.0-99.0); MEAN PLATELET VOLUME 8.8 fL (7.9-10.8); MONOCYTES # (AUTO) 0.7 10^3/uL (0.0-1.0); MONOCYTES % (AUTO) 9.9 %; NEUTROPHILS # (AUTO) 5.2 10^3/uL (1.5-6.6); NEUTROPHILS % (AUTO) 72.1 %; PLT - PLATELET COUNT 153 10^3/uL (130-450); RED BLOOD COUNT 4.28 10^6/uL (4.20-5.40); RED CELL DISTRIBUTION WIDTH 35.2 % (12.0-15.0); WHITE BLOOD COUNT 7.2 x10^3/uL (4.8-10.8)
[2018-06-19 06:47] LABS: PLATELET ESTIMATE, MANUAL NORMAL (130-450,000) (NORMAL)
--- NOTE | 2018-06-19 08:52 | PROVIDER PROGRESS NOTE ---
Assessment/Plan - Problem List (1) Anemia due to GI blood loss Assessment/Plan: Hgb is better than even yesterday, due to diuresis producing hemoconcentration. Continue Fe replacement and diuresis. The guiac order was cancelled by someone and no fecal occult blood was obtained, as ordered by ER doctor. Will reorder guiac stool test, and speak to [facility] as to why my order was cancelled. The plan is for a colonoscopy after D[facility], as an outpatient. (2) High output congestive heart failure Assessment/Plan: The patient is only 1L neg fluid balance since admission. Restrict fluid intake Continue daily Lasix, and Spironolactone, I's and O's. Follow Na, K and Mg daily. (3) Hyponatremia Assessment/Plan: Will restrict po free water intake. Patient and staff were informed. Continue Lasix dosing. Follow BMP daily. (4) Dental infection Assessment/Plan: It appears to be "coming to a head". Will order Peridex oral rinses and warm external heating pad. Continue iv Unasyn and pain meds. (5) Hypokalemia due to loss of potassium Assessment/Plan: She is getting po KCl replacement, while on Lasix. (6) Pulmonary HTN Assessment/Plan: Stable (7) Tobacco dependence due to cigarettes Assessment/Plan: She is on Nictine patch and reports no urge to smoke. Yesterday she admitted that she is "ready to quit", once I reported the new Dx of pulmonary HTN to her, and the daughter was at bedside. Will start Wellbutrin for smoking cessation while here and discharge on this. - Current Meds Current Meds: Current Medications Generic Name Dose Route Start Last Admin Trade Name Freq PRN Reason Stop Dose Admin Acetaminophen 650 mg 06/17/18 14:59 06/18/18 12:10 Tylenol PO 650 mg Q4HR PRN Administration Pain 1 to 4 Acetaminophen/Codeine Phosphate 1 tab 06/17/18 18:23 06/18/18 21:46 Tylenol #3 PO 1 tab Q4HR PRN Administration PAIN Ferrous Gluconate 324 mg 06/18/18 12:00 06/18/18 18:02 Fergon PO 324 mg 0800,1800 PIERRE Administration Furosemide 20 mg 06/18/18 12:00 06/18/18 12:04 Lasix PO 20 mg DAILY PIERRE Administration Heparin Sodium (Beef Lung) 30 - 50 unit 06/18/18 05:41 06/18/18 21:47 IVP 30 unit PRN PRN Administration Central Line Protocol (<24 hr) Ampicillin Sodium/Sulbactam 100 mls @ 200 mls/hr 06/18/18 03:00 06/19/18 03:25 Sodium 3 gm/ Sodium Chloride IV Infused Q6H PIERRE Infusion Nicotine 1 patch 06/17/18 17:46 06/18/18 10:09 Nicoderm TOP 1 patch DAILY PIERRE Administration Polyethylene Glycol 17 gm 06/18/18 09:00 06/18/18 10:18 Miralax PO 17 gm DAILY PIERRE Administration Potassium Chloride 20 meq 06/18/18 11:00 06/18/18 15:05 K-Dur PO 06/20/18 08:00 20 meq 1100,1500 PIERRE Administration Saccharomyces Boulardii 250 mg 06/18/18 17:00 06/18/18 18:03 Florastor PO 250 mg BIDWM PIERRE Administration Sodium Chloride 10 ml 06/17/18 14:59 06/19/18 02:58 Normal Saline Flush 0.9% IVP 10 ml PRN PRN Administration NEEDED PER PROVIDER ORDERS Sodium Chloride 10 ml 06/17/18 17:00 06/18/18 14:55 Normal Saline Flush 0.9% IVP 10 ml 0100,0900,1700 PIERRE Administration Spironolactone 12.5 mg 06/18/18 12:00 06/18/18 12:04 Aldactone PO 12.5 mg DAILY PIERRE Administration - Lab Result Fish Bone Diagrams: 06/19/18 05:45 06/19/18 05:45 - Additional Planning My Orders: My Active Orders 06/18/18 09:00 Polyethylene Glycol 3350 [Miralax] 17 gm PO DAILY 06/18/18 11:00 Potassium Chloride [K-Dur] 20 meq PO 1100,1500 06/18/18 11:03 Ipratropium/Albuterol [Duoneb] 3 ml INH RTQID PRN 06/18/18 11:05 Nebulizer/MDI Tx. [RC] QID Resp Teach Nebulizer/MDI [RC] .ONCE 06/18/18 12:00 Ferrous Gluconate [Fergon] 324 mg PO 0800,1800 Furosemide [Lasix] 20 mg PO DAILY Spironolactone [Aldactone] 12.5 mg PO DAILY 06/18/18 17:00 Saccharomyces Boulardii [Florastor] 250 mg PO BIDWM 06/18/18 Lunch DIET [Low Sodium Diet] [DIET] 06/19/18 05:00 MAGNESIUM [CHEM] Routine 06/19/18 08:00 Postural [Vital Signs - Orthostatic] [RC] DAILY 06/20/18 05:00 BMP - BASIC METABOLIC PANEL [CHEM] DAILYLAB CBC - COMP BLD CT W/AUTO DIFF [HEME] DAILYLAB Subjective - Subjective Patient Reports: Other (No more SOB, was able to take a shower independantly. Worse pain and internal swelling of L jaw area, even with Oxycodone.) Objective Vital Signs: Vital Signs - 24 hr 06/18/18 06/18/18 06/18/18 09:00 13:00 15:29 Temperature 36.7 C 36.8 C 36.6 C Heart Rate Heart Rate [ 88 76 80 Brachial] Heart Rate [ Sitting (After 1 Minute)] Heart Rate [ Standing (After 1 Minute)] Heart Rate [ Supine] Respiratory 20 20 18 Rate Blood Pressure 136/65 H 138/55 H 135/54 H [Left Brachial artery] Blood Pressure [Right Brachial artery] Blood Pressure [Sitting (After 1 Minute)] Blood Pressure [Standing ( After 1 Minute) ] Blood Pressure [Supine] O2 Saturation 98 98 99 06/18/18 06/18/18 06/18/18 18:18 19:17 21:10 Temperature 36.6 C Heart Rate 79 Heart Rate [ 74 Brachial] Heart Rate [ 77 Sitting (After 1 Minute)] Heart Rate [ 83 Standing (After 1 Minute)] Heart Rate [ 83 Supine] Respiratory 20 12 Rate Blood Pressure 142/76 H [Left Brachial artery] Blood Pressure [Right Brachial artery] Blood Pressure 138/60 H [Sitting (After 1 Minute)] Blood Pressure 144/63 H [Standing ( After 1 Minute) ] Blood Pressure 131/55 H [Supine] O2 Saturation 98 06/19/18 06/19/18 06/19/18 00:08 05:30 08:26 Temperature 36.8 C 36.9 C 37.1 C Heart Rate Heart Rate [ 77 84 87 Brachial] Heart Rate [ Sitting (After 1 Minute)] Heart Rate [ Standing (After 1 Minute)] Heart Rate [ Supine] Respiratory 16 18 16 Rate Blood Pressure [Left Brachial artery] Blood Pressure 134/72 H 138/67 H 133/74 H [Right Brachial artery] Blood Pressure [Sitting (After 1 Minute)] Blood Pressure [Standing ( After 1 Minute) ] Blood Pressure [Supine] O2 Saturation 92 95 95 Oxygen O2 Source Room air I&O (Last 24 Hrs): Intake and Output Totals x24h 06/17/18 06/18/18 06/19/18 23:59 23:59 23:59 Intake Total 1744 2819 100 Output Total 600 4751 400 Balance 1144 -1932 -300 General: Alert, Oriented x3 HEENT: Other (L lower jaw less swollen but a redness zone 3x3 cm appeared.) Neck: Supple Neuro: Non Focal Cardiovascular: Regular rate Respiratory: No respiratory distress Abdomen: Soft Extremities: No edema - Results Results: Laboratory Results WBC 7.2 x10^3/uL (4.8-10.8) 06/19/18 05:45 RBC 4.28 10^6/uL (4.20-5.40) 06/19/18 05:45 Hgb 9.2 g/dL (12.0-16.0) L 06/19/18 05:45 Hct 30.2 % (37.0-47.0) L 06/19/18 05:45 MCV 70.6 fL (81.0-99.0) L 06/19/18 05:45 MCH 21.4 pg (27.0-31.0) L 06/19/18 05:45 MCHC 30.3 g/dL (32.0-36.0) L 06/19/18 05:45 RDW 35.2 % (12.0-15.0) H 06/19/18 05:45 Plt Count 153 10^3/uL (130-450) 06/19/18 05:45 MPV 8.8 fL (7.9-10.8) 06/19/18 05:45 Neut # (Auto) 5.2 10^3/uL (1.5-6.6) 06/19/18 05:45 Lymph # (Auto) 1.1 10^3/uL (1.5-3.5) L 06/19/18 05:45 [place] # (Auto) 0.7 10^3/uL (0.0-1.0) 06/19/18 05:45 Eos # (Auto) 0.1 10^3/uL (0.0-0.7) 06/19/18 05:45 Baso # (Auto) 0.1 10^3/uL (0.0-0.1) 06/19/18 05:45 Absolute Nucleated RBC 0.02 x10^3/uL 06/19/18 05:45 Nucleated RBC % 0.3 /100WBC 06/19/18 05:45 Manual Slide Review Indicated 06/19/18 05:45 Platelet Estimate NORMAL (130-450,000) (NORMAL) 06/19/18 05:45 Platelet Morphology RARE GIANT PLATELETS (NORMAL) 06/18/18 08:28 RBC Morph Micro Appear 3+ ANISOCYTOSIS (NORMAL) 1+ POLYCHROMASIA (NORMAL) 4+ HYPOCHROMASIA (NORMAL) 1+ OVALOCYTES (NORMAL) 1+ SCHISTOCYTES (NORMAL) 06/17/18 12:52 RBC Morph Micro Appear 3+ ANISOCYTOSIS (NORMAL) 1+ POLYCHROMASIA (NORMAL) 4+ HYPOCHROMASIA (NORMAL) 1+ OVALOCYTES (NORMAL) 1+ SCHISTOCYTES (NORMAL) 06/17/18 12:52 RBC Morph Micro Appear 3+ ANISOCYTOSIS (NORMAL) 1+ POLYCHROMASIA (NORMAL) 4+ HYPOCHROMASIA (NORMAL) 1+ OVALOCYTES (NORMAL) 1+ SCHISTOCYTES (NORMAL) 06/17/18 12:52 RBC Morph Micro Appear 2+ ANISOCYTOSIS (NORMAL) 2+ HYPOCHROMASIA (NORMAL) 2+ MICROCYTOSIS (NORMAL) 06/18/18 08:28 RBC Morph Micro Appear 2+ ANISOCYTOSIS (NORMAL) 2+ HYPOCHROMASIA (NORMAL) 2+ MICROCYTOSIS (NORMAL) 06/18/18 08:28 RBC Morph Micro Appear 2+ ANISOCYTOSIS (NORMAL) 2+ HYPOCHROMASIA (NORMAL) 2+ MICROCYTOSIS (NORMAL) 06/18/18 08:28 RBC Morph Micro Appear 3+ ANISOCYTOSIS (NORMAL) 2+ MICROCYTOSIS (NORMAL) 1+ MACROCYTOSIS (NORMAL) 2+ HYPOCHROMASIA (NORMAL) 1+ POLYCHROMASIA (NORMAL) 1+ OVALOCYTES (NORMAL) 06/19/18 05:45 RBC Morph Micro Appear 3+ ANISOCYTOSIS (NORMAL) 2+ MICROCYTOSIS (NORMAL) 1+ MACROCYTOSIS (NORMAL) 2+ HYPOCHROMASIA (NORMAL) 1+ POLYCHROMASIA (NORMAL) 1+ OVALOCYTES (NORMAL) 06/19/18 05:45 RBC Morph Micro Appear 3+ ANISOCYTOSIS (NORMAL) 2+ MICROCYTOSIS (NORMAL) 1+ MACROCYTOSIS (NORMAL) 2+ HYPOCHROMASIA (NORMAL) 1+ POLYCHROMASIA (NORMAL) 1+ OVALOCYTES (NORMAL) 06/19/18 05:45 RBC Morph Micro Appear 3+ ANISOCYTOSIS (NORMAL) 2+ MICROCYTOSIS (NORMAL) 1+ MACROCYTOSIS (NORMAL) 2+ HYPOCHROMASIA (NORMAL) 1+ POLYCHROMASIA (NORMAL) 1+ OVALOCYTES (NORMAL) 06/19/18 05:45 RBC Morph Micro Appear 3+ ANISOCYTOSIS (NORMAL) 2+ MICROCYTOSIS (NORMAL) 1+ MACROCYTOSIS (NORMAL) 2+ HYPOCHROMASIA (NORMAL) 1+ POLYCHROMASIA (NORMAL) 1+ OVALOCYTES (NORMAL) 06/19/18 05:45 RBC Morph Micro Appear 3+ ANISOCYTOSIS (NORMAL) 2+ MICROCYTOSIS (NORMAL) 1+ MACROCYTOSIS (NORMAL) 2+ HYPOCHROMASIA (NORMAL) 1+ POLYCHROMASIA (NORMAL) 1+ OVALOCYTES (NORMAL) 06/19/18 05:45 PT 12.8 secs (9.9-12.6) H 06/17/18 12:52 INR 1.1 (0.8-1.2) 06/17/18 12:52 VBG pH 7.417 (7.31-7.41) H 06/17/18 12:52 VBG pCO2 42.8 mmHg (41-51) 06/17/18 12:52 VBG pO2 51.5 mmHg (25-47) H 06/17/18 12:52 VBG HCO3 27.0 mmol/L (23-28) 06/17/18 12:52 VBG Total CO2 28.3 mmol/L (24-29) 06/17/18 12:52 VBG O2 Saturation 83.2 % (60-80) H 06/17/18 12:52 VBG Base Excess 2.2 mmol/L (-2 - +2) H 06/17/18 12:52 Sodium 131 mmol/L (135-145) L 06/19/18 05:45 Potassium 3.4 mmol/L (3.5-5.0) L 06/19/18 05:45 Chloride 97 mmol/L (101-111) L 06/19/18 05:45 Carbon Dioxide 27 mmol/L (21-32) 06/19/18 05:45 Anion Gap 7.0 (6-13) 06/19/18 05:45 BUN 10 mg/dL (6-20) 06/19/18 05:45 Creatinine 0.5 mg/dL (0.4-1.0) 06/19/18 05:45 Estimated GFR (MDRD) 126 (>89) 06/19/18 05:45 Glucose 104 mg/dL (70-100) H 06/19/18 05:45 Calcium 8.9 mg/dL (8.5-10.3) 06/19/18 05:45 Magnesium 2.1 mg/dL (1.7-2.8) 06/17/18 12:52 Total Bilirubin 1.1 mg/dL (0.2-1.0) H 06/17/18 12:52 AST 22 IU/L (10-42) 06/17/18 12:52 ALT 14 IU/L (10-60) 06/17/18 12:52 Alkaline Phosphatase 103 IU/L (42-121) 06/17/18 12:52 Troponin I < 0.04 ng/mL (<0.49) 06/18/18 01:11 B-Natriuretic Peptide 426 pg/mL (5-100) H 06/18/18 08:28 Total Protein 7.4 g/dL (6.7-8.2) 06/17/18 12:52 Albumin 3.7 g/dL (3.2-5.5) 06/17/18 12:52 Globulin 3.7 g/dL (2.1-4.2) 06/17/18 12:52 Albumin/Globulin Ratio 1.0 (1.0-2.2) 06/17/18 12:52 Lipase 39 U/L (22-51) 06/17/18 12:52 Urine Color YELLOW 06/17/18 13:20 Urine Clarity CLEAR (CLEAR) 06/17/18 13:20 Urine pH 8.0 PH (5.0-7.5) H 06/17/18 13:20 Ur Specific [place] 1.020 (1.002-1.030) 06/17/18 13:20 Urine Protein NEGATIVE mg/dL (NEGATIVE) 06/17/18 13:20 Urine Glucose (UA) NEGATIVE mg/dL (NEGATIVE) 06/17/18 13:20 Urine Ketones NEGATIVE mg/dL (NEGATIVE) 06/17/18 13:20 Urine Occult Blood NEGATIVE (NEGATIVE) 06/17/18 13:20 Urine Nitrite NEGATIVE (NEGATIVE) 06/17/18 13:20 Urine Bilirubin NEGATIVE (NEGATIVE) 06/17/18 13:20 Urine Urobilinogen 1 (NORMAL) E.U./dL (NORMAL) 06/17/18 13:20 Ur Leukocyte Esterase NEGATIVE (NEGATIVE) 06/17/18 13:20 Ur Microscopic Review NOT INDICATED 06/17/18 13:20 Urine Culture Comments NOT INDICATED 06/17/18 13:20 Blood Type O POSITIVE 06/17/18 14:00 Blood Type Recheck O POSITIVE 06/17/18 12:52 Antibody Screen NEGATIVE 06/17/18 14:00 Crossmatch IS Only See Detail 06/17/18 14:00 - Procedures Procedures: Procedures ENDOSC POLYPECTOMY OF LG INTEST (05/01/14)
--- NOTE | 2018-06-19 08:57 | PROVIDER PROGRESS NOTE ---
Subjective - Prog Note Date Prog Note Date: 06/19/18 Prog Note Time: 08:54 - Subjective Pt reports feeling: Improved (Pt has not had dark stools during her stay, or any stools. Subjectively feels much improved after the transfusions.) Objective - Vital Signs/Intake & Output Vital Signs: Vital Signs x48h Temp Pulse Resp BP Pulse Ox 06/19/18 08:26 37.1 C 87 16 133/74 H 95 06/19/18 05:30 36.9 C 84 18 138/67 H 95 Intake & Output: Intake & Output 06/16/18 06/17/18 06/18/18 06/19/18 23:59 23:59 23:59 23:59 Intake Total 1744 2819 100 Output Total 600 1211 400 Balance 4736 -8513 -300 - Objective General Appearance: positive: No acute distress Eyes Bilateral: positive: Normal inspection ENT: positive: ENT inspection nml Neck: positive: Nml inspection Respiratory: positive: Chest non-tender Abdomen: positive: Non-tender Back: positive: Nml inspection Skin: positive: Color nml Extremities: positive: Non-tender Neurologic/Psychiatric: positive: Oriented x3 - Lab Results Fish Bones: 06/19/18 05:45 06/19/18 05:45 Other Labs: Lab Results x24hrs 06/19/18 06/19/18 06/18/18 Range/Units 05:45 05:45 08:28 WBC 7.2 6.9 (4.8-10.8) x10^3/uL RBC 4.28 3.84 L (4.20-5.40) 10^6/uL Hgb 9.2 L 8.3 L (12.0-16.0) g/dL Hct 30.2 L 26.9 L (37.0-47.0) % MCV 70.6 L 70.0 L (81.0-99.0) fL MCH 21.4 L 21.7 L (27.0-31.0) pg MCHC 30.3 L 31.1 L (32.0-36.0) g/dL RDW 35.2 H 34.0 H (12.0-15.0) % Plt Count 153 127 L (130-450) 10^3/uL MPV 8.8 8.5 (7.9-10.8) fL Neut # (Auto) 5.2 5.7 (1.5-6.6) 10^3/uL Lymph # (Auto) 1.1 L 0.6 L (1.5-3.5) 10^3/uL [place] # (Auto) 0.7 0.5 (0.0-1.0) 10^3/uL Eos # (Auto) 0.1 0.1 (0.0-0.7) 10^3/uL Baso # (Auto) 0.1 0.1 (0.0-0.1) 10^3/uL Absolute Nucleated RBC 0.02 0.02 x10^3/uL Nucleated RBC % 0.3 0.4 /100WBC Manual Slide Review Indicated Indicated Platelet Estimate NORMAL (130-450,000) NORMAL (130-450,000) (NORMAL) Platelet Morphology RARE GIANT PLATELETS (NORMAL) RBC Morph Micro Appear 1+ OVALOCYTES 2+ MICROCYTOSIS (NORMAL) Sodium 131 L (135-145) mmol/L Potassium 3.4 L (3.5-5.0) mmol/L Chloride 97 L (101-111) mmol/L Carbon Dioxide 27 (21-32) mmol/L Anion Gap 7.0 (6-13) BUN 10 (6-20) mg/dL Creatinine 0.5 (0.4-1.0) mg/dL Estimated GFR (MDRD) 126 (>89) Glucose 104 H (70-100) mg/dL Calcium 8.9 (8.5-10.3) mg/dL B-Natriuretic Peptide (5-100) pg/mL 06/18/18 06/18/18 Range/Units 08:28 08:28 WBC (4.8-10.8) x10^3/uL RBC (4.20-5.40) 10^6/uL Hgb (12.0-16.0) g/dL Hct (37.0-47.0) % MCV (81.0-99.0) fL MCH (27.0-31.0) pg MCHC (32.0-36.0) g/dL RDW (12.0-15.0) % Plt Count (130-450) 10^3/uL MPV (7.9-10.8) fL Neut # (Auto) (1.5-6.6) 10^3/uL Lymph # (Auto) (1.5-3.5) 10^3/uL [place] # (Auto) (0.0-1.0) 10^3/uL Eos # (Auto) (0.0-0.7) 10^3/uL Baso # (Auto) (0.0-0.1) 10^3/uL Absolute Nucleated RBC x10^3/uL Nucleated RBC % /100WBC Manual Slide Review Platelet Estimate (NORMAL) Platelet Morphology (NORMAL) RBC Morph Micro Appear (NORMAL) Sodium 136 (135-145) mmol/L Potassium 3.0 L (3.5-5.0) mmol/L Chloride 99 L (101-111) mmol/L Carbon Dioxide 26 (21-32) mmol/L Anion Gap 11.0 (6-13) BUN 7 (6-20) mg/dL Creatinine 0.5 (0.4-1.0) mg/dL Estimated GFR (MDRD) 126 (>89) Glucose 102 H (70-100) mg/dL Calcium 8.6 (8.5-10.3) mg/dL B-Natriuretic Peptide 426 H (5-100) pg/mL Assessment/Plan - Problem List (1) Anemia due to GI blood loss Impression: Pt's Hct has been stable and she feels much improved without evidence of continued bleeding. She had a normal EGD. A colonoscopy should be done as an outpt if she continues to have dark stools, otherwise simply stopping NSAIDs may be enough.
[2018-06-19] MEDS: FUROSEMIDE 20 MG TABLET PO SCH (10:30)
[2018-06-19] MEDS: ACETAMINOPHEN/CODEINE 300 MG/30 MG TABLET PO PRN ×3 (10:31→20:52)
[2018-06-19] MEDS: FERROUS GLUCONATE 324 MG TABLET PO SCH ×2 (10:31→17:11)
[2018-06-19] MEDS: SACCHAROMYCES BOULARDII 250 MG CAPSULE PO SCH ×2 (10:31→17:11)
[2018-06-19] MEDS: SPIRONOLACTONE 25 MG TABLET PO SCH (10:32)
[2018-06-19] MEDS: POLYETHYLENE GLYCOL 3350 17 GM PACKET PO SCH (10:32)
[2018-06-19] MEDS: SODIUM CHLORIDE FLUSH 0.9% 10 ML SYRINGE IVP SCH ×3 (10:32→15:50)
[2018-06-19] MEDS: NICOTINE 14 MG PATCH TOP SCH (10:36)
[2018-06-19] MEDS: buPROPion SR 100 MG TABLET PO SCH ×2 (10:45→20:58)
[2018-06-19] MEDS: POTASSIUM CHLORIDE 20 MEQ TABLET PO SCH ×2 (12:20→14:43)
[2018-06-19] MEDS: CHLORHEXIDINE GLUCONATE 15 ML UDC PO SCH (18:54)
[2018-06-20] MEDS: AMPICILLIN/SULBACTAM 3 GM in SODIUM CHLORIDE 0.9% MINIBAG 100 ML IV SCH ×4 (02:37→22:09)
[2018-06-20] MEDS: SODIUM CHLORIDE FLUSH 0.9% 10 ML SYRINGE IVP SCH ×5 (02:42→23:48)
[2018-06-20 05:37] LABS: BASOPHILS # (AUTO) 0.1 10^3/uL (0.0-0.1); BASOPHILS % (AUTO) 1.5 %; EOSINOPHILS # (AUTO) 0.2 10^3/uL (0.0-0.7); EOSINOPHILS % (AUTO) 3.6 %; LYMPHOCYTES # (AUTO) 1.3 10^3/uL (1.5-3.5); LYMPHOCYTES % (AUTO) 18.8 %; MEAN CORPUSCULAR HEMOGLOBIN 21.6 pg (27.0-31.0); MEAN CORPUSCULAR HGB CONC 29.9 g/dL (32.0-36.0); MEAN CORPUSCULAR VOLUME 72.1 fL (81.0-99.0); MEAN PLATELET VOLUME 8.6 fL (7.9-10.8); MONOCYTES # (AUTO) 0.7 10^3/uL (0.0-1.0); MONOCYTES % (AUTO) 10.1 %; NEUTROPHILS # (AUTO) 4.4 10^3/uL (1.5-6.6); PLT - PLATELET COUNT 171 10^3/uL (130-450); RED BLOOD COUNT 4.16 10^6/uL (4.20-5.40); WHITE BLOOD COUNT 6.6 x10^3/uL (4.8-10.8)
[2018-06-20 05:40] LABS: CALCIUM 8.8 mg/dL (8.5-10.3); CREATININE 0.6 mg/dL (0.4-1.0)
[2018-06-20] MEDS: SODIUM CHLORIDE FLUSH 0.9% 10 ML SYRINGE IVP PRN ×7 (05:43→23:39)
[2018-06-20 06:05] LABS: PLATELET ESTIMATE, MANUAL NORMAL (130-450,000) (NORMAL); PLATELET MORPHOLOGY NORMAL APPEARANCE (NORMAL)
[2018-06-20] MEDS: SACCHAROMYCES BOULARDII 250 MG CAPSULE PO SCH ×2 (08:19→19:14)
[2018-06-20] MEDS: FUROSEMIDE 20 MG TABLET PO SCH (08:19)
[2018-06-20] MEDS: SPIRONOLACTONE 25 MG TABLET PO SCH (08:19)
[2018-06-20] MEDS: NICOTINE 14 MG PATCH TOP SCH (08:20)
[2018-06-20] MEDS: buPROPion SR 100 MG TABLET PO SCH ×2 (08:20→22:15)
[2018-06-20] MEDS: FERROUS GLUCONATE 324 MG TABLET PO SCH ×2 (08:20→19:14)
[2018-06-20] MEDS: POLYETHYLENE GLYCOL 3350 17 GM PACKET PO SCH (08:24)
[2018-06-20] MEDS: CHLORHEXIDINE GLUCONATE 15 ML UDC PO SCH ×2 (08:31→22:36)
[2018-06-20] MEDS: ACETAMINOPHEN/CODEINE 300 MG/30 MG TABLET PO PRN ×5 (08:31→23:44)
[2018-06-20] MEDS ORDERED: IOVERSOL 320 100 ML VIAL IVP ONE ×2 (10:43→15:49)
--- NOTE | 2018-06-20 12:14 | CT Report ---
Reason: L facial/ dental abcsess, L lower jaw Procedure Date: 06/20/2018 Accession Number: [id number] / [id number] Procedure: CT - SOFT TISSUE NECK W CPT Code: FULL RESULT: EXAM: CT SOFT TISSUE NECK WITH CONTRAST. EXAM DATE: 06/20/2018 11:46 AM. HISTORY: Left facial/dental abscess, mandible COMPARISONS: None. TECHNIQUE: Routine soft tissue neck CT protocol. Reconstructions: Coronal and sagittal. IV contrast: OPTI 320 80mL. In accordance with CT protocol optimization, one or more of the following dose reduction techniques were utilized for this exam: automated exposure control, adjustment of mA and/or KV based on patient size, or use of iterative reconstructive technique. FINDINGS: Multilobulated, multiloculated peripherally enhancing hypodense soft tissue mass lesion is seen along the buccal surface of the left mandibular alveolus posterior to the last remaining most posterior left mandibular tooth measures 2.1 cm anteroposterior, 1.0 cm craniocaudal and 1.5 cm transverse suspicious for an odontogenic abscess. This is best demonstrated on sagittal image 43 series 6, coronal image 21 series 5, and axial image 53 series 3. The most posterior remaining left mandibular tooth demonstrates focal radiolucency associated with its root, compatible with radicular cyst. Right mandibular canine with cavity also demonstrates rounded radiolucency associated with its root, compatible with radicular cyst. Other radicular cyst also demonstrated associated with the lateral right maxillary incisor. Significantly decayed right maxillary molars demonstrates radicular lucencies/radicular cysts. There is a nonenlarged left level 1B lymph node. No evidence for cervical adenopathy. Visualized intracranial contents appear unremarkable. Dural venous sinus structures and arterial structures unremarkable. Orbits, paranasal sinuses and mastoid air cells are unremarkable. Infratemporal fossa, splunk consultant space and parapharyngeal space unremarkable. Retropharyngeal space unremarkable. Nasopharynx, oropharynx, epiglottis, larynx appear unremarkable. Salivary glands appear unremarkable. Carotid space appear unremarkable. Transcutaneous right internal jugular central venous catheter is seen with its catheter extending into the superior vena cava, its tip not visualized. Visualized mediastinum and visible lungs appear unremarkable. No suspicious lytic or sclerotic osseous lesions. Moderate degenerative changes at C4-C5, C5-C6 and C6-C7. There is grade 1 3 mm retrolisthesis of C5 on C6. IMPRESSION: 1. Multilobulated multiloculated peripherally enhancing hypodense collections probable abscess along the buccal surface of the left mandibular alveolus, posterior to the last remaining most posterior left mandibular tooth. This collection measures 2.1 cm anterior-posterior, 1.0 cm craniocaudal and 1.5 cm transverse. 2. Significant caries and radicular cysts involving the right mandibular condyle, most posterior remaining left mandibular tooth, right lateral maxillary incisor, decayed posterior maxillary molars. 3. Right internal jugular central venous catheter seen extending into the superior vena cava, its tip not visualized. RADIA
--- NOTE | 2018-06-20 16:12 | PROVIDER PROGRESS NOTE ---
Assessment/Plan - Problem List (1) Dental infection Assessment/Plan: This morning I called the Dental Surgeon, Dr David Hayes, and requested a consult. He advised a CT of neck be done. The CT reveals a significant abscess. He is planning on taking her to the OR tonight for draining the abscess. Patient informed. Will keep her NPO for the OR. Continue iv antibiotics, Peridex rinses and pain control. (2) Anemia due to GI blood loss Assessment/Plan: Stable Hgb since transfused with 4U PRBCs at admission. EGD was unremarkable Guiac neg stool here. Continue po Iron replacement. Outpatient colonoscopy was advised by the surgeon (3) High output congestive heart failure Assessment/Plan: She is now 2L (-) balance since admission and has no more ankle or hand edema. The LVEF was normal, thus her diuretic needs will be temporary. Continue daily wts, I's and O's and monitor BMP and Mg while here (4) Hyponatremia Assessment/Plan: Improving with free water restriction and loop diuretic. (5) Pulmonary HTN Assessment/Plan: Severe pulm HTN by Echo done this admission with PAP > 60 mmHg. Smoking cessation advised. She has never had PFTs to eval for COPD, etc. (6) Tobacco dependence due to cigarettes Assessment/Plan: Pt on Nicotine patch and Wellbutrin started for smoking cessation. She is very motivated to stop, since she learned of the new Pulmonary HTN found on Echo. (7) Hypokalemia due to loss of potassium Assessment/Plan: Resolved with replacement - Current Meds Current Meds: Current Medications Generic Name Dose Route Start Last Admin Trade Name Freq PRN Reason Stop Dose Admin Acetaminophen 650 mg 06/17/18 14:59 06/18/18 12:10 Tylenol PO 650 mg Q4HR PRN Administration Pain 1 to 4 Acetaminophen/Codeine Phosphate 1 tab 06/17/18 18:23 06/20/18 14:54 Tylenol #3 PO 1 tab Q4HR PRN Administration PAIN Bupropion HCl 100 mg 06/19/18 09:00 06/20/18 08:20 Wellbutrin Sr PO 100 mg BID PIERRE Administration Chlorhexidine Gluconate 15 ml 06/19/18 17:06 06/20/18 08:31 Peridex PO 15 ml BID PIERRE Administration Ferrous Gluconate 324 mg 06/18/18 12:00 06/20/18 08:20 Fergon PO 324 mg 0800,1800 PIERRE Administration Furosemide 20 mg 06/18/18 12:00 06/20/18 08:19 Lasix PO 20 mg DAILY PIERRE Administration Heparin Sodium (Beef Lung) 30 - 50 unit 06/18/18 05:41 06/19/18 21:45 IVP 50 unit PRN PRN Administration Central Line Protocol (<24 hr) Ampicillin Sodium/Sulbactam 100 mls @ 200 mls/hr 06/18/18 03:00 06/20/18 15:23 Sodium 3 gm/ Sodium Chloride IV Infused Q6H PIERRE Infusion Ioversol 100 ml 06/20/18 15:49 06/20/18 11:40 Optiray 320 IVP 06/20/18 15:50 80 ml ONCE ONE Administration Nicotine 1 patch 06/17/18 17:46 06/20/18 08:20 Nicoderm TOP 1 patch DAILY PIERRE Administration Polyethylene Glycol 17 gm 06/18/18 09:00 06/20/18 08:24 Miralax PO 17 gm DAILY PIERRE Administration Saccharomyces Boulardii 250 mg 06/18/18 17:00 06/20/18 08:19 Florastor PO 250 mg BIDWM PIERRE Administration Sodium Chloride 10 ml 06/17/18 14:59 06/20/18 14:58 Normal Saline Flush 0.9% IVP 10 ml PRN PRN Administration NEEDED PER PROVIDER ORDERS Sodium Chloride 10 ml 06/17/18 17:00 06/20/18 08:36 Normal Saline Flush 0.9% IVP 10 ml 0100,0900,1700 PIERRE Administration Sodium Chloride 20 ml 06/18/18 05:41 06/20/18 05:43 Normal Saline Flush 0.9% IVP 20 ml PRN PRN Administration After Blood Draw Spironolactone 12.5 mg 06/18/18 12:00 06/20/18 08:19 Aldactone PO 12.5 mg DAILY PIERRE Administration - Lab Result Fish Bone Diagrams: 06/20/18 05:20 06/20/18 05:20 - Additional Planning My Orders: My Active Orders 06/19/18 17:03 Heat [Cold / Heat Application] [RC] PRN 06/19/18 17:06 Chlorhexidine [Peridex] 15 ml PO BID 06/20/18 General Surgery Consult [CONS] Routine 06/20/18 10:35 NPO [DIET] 06/20/18 15:49 Ioversol 320 [Optiray 320] 100 ml IVP ONCE ONE Subjective - Subjective Patient Reports: Pain (The Left jaw area hurts more, despite narcotics and Peridex) Objective Vital Signs: Vital Signs - 24 hr 06/19/18 06/19/18 06/19/18 20:05 20:19 23:26 Temperature 36.6 C 36.6 C Heart Rate 75 Heart Rate [ 72 80 Brachial] Heart Rate [ Sitting (After 1 Minute)] Heart Rate [ Standing (After 1 Minute)] Heart Rate [ Supine] Respiratory 16 18 18 Rate Blood Pressure 131/62 H 123/63 [Right Brachial artery] Blood Pressure [Sitting (After 1 Minute)] Blood Pressure [Standing ( After 1 Minute) ] Blood Pressure [Supine] O2 Saturation 97 95 06/20/18 06/20/18 06/20/18 04:42 07:30 07:35 Temperature 36.5 C 36.7 C Heart Rate 82 Heart Rate [ 91 76 Brachial] Heart Rate [ Sitting (After 1 Minute)] Heart Rate [ Standing (After 1 Minute)] Heart Rate [ Supine] Respiratory 18 18 18 Rate Blood Pressure 132/66 H 133/67 H [Right Brachial artery] Blood Pressure [Sitting (After 1 Minute)] Blood Pressure [Standing ( After 1 Minute) ] Blood Pressure [Supine] O2 Saturation 96 93 06/20/18 06/20/18 06/20/18 10:20 10:31 11:58 Temperature 36.7 C 36.6 C Heart Rate 76 Heart Rate [ 73 Brachial] Heart Rate [ 75 Sitting (After 1 Minute)] Heart Rate [ 90 Standing (After 1 Minute)] Heart Rate [ 75 Supine] Respiratory 18 18 Rate Blood Pressure 135/67 H [Right Brachial artery] Blood Pressure 118/64 [Sitting (After 1 Minute)] Blood Pressure 134/68 H [Standing ( After 1 Minute) ] Blood Pressure 121/61 [Supine] O2 Saturation 93 99 06/20/18 15:59 Temperature 36.3 C L Heart Rate Heart Rate [ 65 Brachial] Heart Rate [ Sitting (After 1 Minute)] Heart Rate [ Standing (After 1 Minute)] Heart Rate [ Supine] Respiratory 18 Rate Blood Pressure 128/65 [Right Brachial artery] Blood Pressure [Sitting (After 1 Minute)] Blood Pressure [Standing ( After 1 Minute) ] Blood Pressure [Supine] O2 Saturation 96 Oxygen O2 Source Room air I&O (Last 24 Hrs): Intake and Output Totals x24h 06/18/18 06/19/18 06/20/18 23:59 23:59 23:59 Intake Total 2810 1010 Output Total 4751 1999 1900 Balance -1932 40 -890 General: Alert, Oriented x3 HEENT: Other (Swollen L lower jaw, less and no resdness) Neck: Supple Neuro: Non Focal Cardiovascular: Regular rate Respiratory: No respiratory distress Abdomen: Soft Extremities: No edema - Results Results: Laboratory Results WBC 6.6 x10^3/uL (4.8-10.8) 06/20/18 05:20 RBC 4.16 10^6/uL (4.20-5.40) L 06/20/18 05:20 Hgb 9.0 g/dL (12.0-16.0) L 06/20/18 05:20 Hct 30.0 % (37.0-47.0) L 06/20/18 05:20 MCV 72.1 fL (81.0-99.0) L 06/20/18 05:20 MCH 21.6 pg (27.0-31.0) L 06/20/18 05:20 MCHC 29.9 g/dL (32.0-36.0) L 06/20/18 05:20 RDW 35.0 % (12.0-15.0) H 06/20/18 05:20 Plt Count 171 10^3/uL (130-450) 06/20/18 05:20 MPV 8.6 fL (7.9-10.8) 06/20/18 05:20 Neut # (Auto) 4.4 10^3/uL (1.5-6.6) 06/20/18 05:20 Lymph # (Auto) 1.3 10^3/uL (1.5-3.5) L 06/20/18 05:20 Walker # (Auto) 0.7 10^3/uL (0.0-1.0) 06/20/18 05:20 Eos # (Auto) 0.2 10^3/uL (0.0-0.7) 06/20/18 05:20 Baso # (Auto) 0.1 10^3/uL (0.0-0.1) 06/20/18 05:20 Absolute Nucleated RBC 0.02 x10^3/uL 06/20/18 05:20 Nucleated RBC % 0.3 /100WBC 06/20/18 05:20 Manual Slide Review Indicated 06/20/18 05:20 Platelet Estimate NORMAL (130-450,000) (NORMAL) 06/20/18 05:20 Platelet Morphology NORMAL APPEARANCE (NORMAL) 06/20/18 05:20 RBC Morph Micro Appear 3+ ANISOCYTOSIS (NORMAL) 1+ POLYCHROMASIA (NORMAL) 4+ HYPOCHROMASIA (NORMAL) 1+ OVALOCYTES (NORMAL) 1+ SCHISTOCYTES (NORMAL) 06/17/18 12:52 RBC Morph Micro Appear 3+ ANISOCYTOSIS (NORMAL) 1+ POLYCHROMASIA (NORMAL) 4+ HYPOCHROMASIA (NORMAL) 1+ OVALOCYTES (NORMAL) 1+ SCHISTOCYTES (NORMAL) 06/17/18 12:52 RBC Morph Micro Appear 2+ ANISOCYTOSIS (NORMAL) 2+ HYPOCHROMASIA (NORMAL) 2+ MICROCYTOSIS (NORMAL) 06/18/18 08:28 RBC Morph Micro Appear 2+ ANISOCYTOSIS (NORMAL) 2+ HYPOCHROMASIA (NORMAL) 2+ MICROCYTOSIS (NORMAL) 06/18/18 08:28 RBC Morph Micro Appear 2+ ANISOCYTOSIS (NORMAL) 2+ HYPOCHROMASIA (NORMAL) 2+ MICROCYTOSIS (NORMAL) 06/18/18 08:28 RBC Morph Micro Appear 3+ ANISOCYTOSIS (NORMAL) 2+ MICROCYTOSIS (NORMAL) 1+ MACROCYTOSIS (NORMAL) 2+ HYPOCHROMASIA (NORMAL) 1+ POLYCHROMASIA (NORMAL) 1+ OVALOCYTES (NORMAL) 06/19/18 05:45 RBC Morph Micro Appear 3+ ANISOCYTOSIS (NORMAL) 2+ MICROCYTOSIS (NORMAL) 1+ MACROCYTOSIS (NORMAL) 2+ HYPOCHROMASIA (NORMAL) 1+ POLYCHROMASIA (NORMAL) 1+ OVALOCYTES (NORMAL) 06/19/18 05:45 RBC Morph Micro Appear 3+ ANISOCYTOSIS (NORMAL) 2+ MICROCYTOSIS (NORMAL) 1+ MACROCYTOSIS (NORMAL) 2+ HYPOCHROMASIA (NORMAL) 1+ POLYCHROMASIA (NORMAL) 1+ OVALOCYTES (NORMAL) 06/19/18 05:45 RBC Morph Micro Appear 3+ ANISOCYTOSIS (NORMAL) 2+ MICROCYTOSIS (NORMAL) 1+ MACROCYTOSIS (NORMAL) 2+ HYPOCHROMASIA (NORMAL) 1+ POLYCHROMASIA (NORMAL) 1+ OVALOCYTES (NORMAL) 06/19/18 05:45 RBC Morph Micro Appear 3+ ANISOCYTOSIS (NORMAL) 2+ MICROCYTOSIS (NORMAL) 1+ MACROCYTOSIS (NORMAL) 2+ HYPOCHROMASIA (NORMAL) 1+ POLYCHROMASIA (NORMAL) 1+ OVALOCYTES (NORMAL) 06/19/18 05:45 RBC Morph Micro Appear 3+ ANISOCYTOSIS (NORMAL) 2+ MICROCYTOSIS (NORMAL) 1+ MACROCYTOSIS (NORMAL) 2+ HYPOCHROMASIA (NORMAL) 1+ POLYCHROMASIA (NORMAL) 1+ OVALOCYTES (NORMAL) 06/19/18 05:45 RBC Morph Micro Appear 3+ ANISOCYTOSIS (NORMAL) 1+ POIKILOCYTOSIS (NORMAL) 1+ POLYCHROMASIA (NORMAL) 2+ HYPOCHROMASIA (NORMAL) 2+ MICROCYTOSIS (NORMAL) 1+ MACROCYTOSIS (NORMAL) 2+ OVALOCYTES (NORMAL) 06/20/18 05:20 RBC Morph Micro Appear 3+ ANISOCYTOSIS (NORMAL) 1+ POIKILOCYTOSIS (NORMAL) 1+ POLYCHROMASIA (NORMAL) 2+ HYPOCHROMASIA (NORMAL) 2+ MICROCYTOSIS (NORMAL) 1+ MACROCYTOSIS (NORMAL) 2+ OVALOCYTES (NORMAL) 06/20/18 05:20 RBC Morph Micro Appear 3+ ANISOCYTOSIS (NORMAL) 1+ POIKILOCYTOSIS (NORMAL) 1+ POLYCHROMASIA (NORMAL) 2+ HYPOCHROMASIA (NORMAL) 2+ MICROCYTOSIS (NORMAL) 1+ MACROCYTOSIS (NORMAL) 2+ OVALOCYTES (NORMAL) 06/20/18 05:20 RBC Morph Micro Appear 3+ ANISOCYTOSIS (NORMAL) 1+ POIKILOCYTOSIS (NORMAL) 1+ POLYCHROMASIA (NORMAL) 2+ HYPOCHROMASIA (NORMAL) 2+ MICROCYTOSIS (NORMAL) 1+ MACROCYTOSIS (NORMAL) 2+ OVALOCYTES (NORMAL) 06/20/18 05:20 RBC Morph Micro Appear 3+ ANISOCYTOSIS (NORMAL) 1+ POIKILOCYTOSIS (NORMAL) 1+ POLYCHROMASIA (NORMAL) 2+ HYPOCHROMASIA (NORMAL) 2+ MICROCYTOSIS (NORMAL) 1+ MACROCYTOSIS (NORMAL) 2+ OVALOCYTES (NORMAL) 06/20/18 05:20 RBC Morph Micro Appear 3+ ANISOCYTOSIS (NORMAL) 1+ POIKILOCYTOSIS (NORMAL) 1+ POLYCHROMASIA (NORMAL) 2+ HYPOCHROMASIA (NORMAL) 2+ MICROCYTOSIS (NORMAL) 1+ MACROCYTOSIS (NORMAL) 2+ OVALOCYTES (NORMAL) 06/20/18 05:20 RBC Morph Micro Appear 3+ ANISOCYTOSIS (NORMAL) 1+ POIKILOCYTOSIS (NORMAL) 1+ POLYCHROMASIA (NORMAL) 2+ HYPOCHROMASIA (NORMAL) 2+ MICROCYTOSIS (NORMAL) 1+ MACROCYTOSIS (NORMAL) 2+ OVALOCYTES (NORMAL) 06/20/18 05:20 PT 12.8 secs (9.9-12.6) H 06/17/18 12:52 INR 1.1 (0.8-1.2) 06/17/18 12:52 VBG pH 7.417 (7.31-7.41) H 06/17/18 12:52 VBG pCO2 42.8 mmHg (41-51) 06/17/18 12:52 VBG pO2 51.5 mmHg (25-47) H 06/17/18 12:52 VBG HCO3 27.0 mmol/L (23-28) 06/17/18 12:52 VBG Total CO2 28.3 mmol/L (24-29) 06/17/18 12:52 VBG O2 Saturation 83.2 % (60-80) H 06/17/18 12:52 VBG Base Excess 2.2 mmol/L (-2 - +2) H 06/17/18 12:52 Sodium 134 mmol/L (135-145) L 06/20/18 05:20 Potassium 4.0 mmol/L (3.5-5.0) 06/20/18 05:20 Chloride 101 mmol/L (101-111) 06/20/18 05:20 Carbon Dioxide 24 mmol/L (21-32) 06/20/18 05:20 Anion Gap 9.0 (6-13) 06/20/18 05:20 BUN 11 mg/dL (6-20) 06/20/18 05:20 Creatinine 0.6 mg/dL (0.4-1.0) 06/20/18 05:20 Estimated GFR (MDRD) 102 (>89) 06/20/18 05:20 Glucose 102 mg/dL (70-100) H 06/20/18 05:20 Calcium 8.8 mg/dL (8.5-10.3) 06/20/18 05:20 Magnesium 2.2 mg/dL (1.7-2.8) 06/19/18 05:45 Total Bilirubin 1.1 mg/dL (0.2-1.0) H 06/17/18 12:52 AST 22 IU/L (10-42) 06/17/18 12:52 ALT 14 IU/L (10-60) 06/17/18 12:52 Alkaline Phosphatase 103 IU/L (42-121) 06/17/18 12:52 Troponin I < 0.04 ng/mL (<0.49) 06/18/18 01:11 B-Natriuretic Peptide 426 pg/mL (5-100) H 06/18/18 08:28 Total Protein 7.4 g/dL (6.7-8.2) 06/17/18 12:52 Albumin 3.7 g/dL (3.2-5.5) 06/17/18 12:52 Globulin 3.7 g/dL (2.1-4.2) 06/17/18 12:52 Albumin/Globulin Ratio 1.0 (1.0-2.2) 06/17/18 12:52 Lipase 39 U/L (22-51) 06/17/18 12:52 Urine Color YELLOW 06/17/18 13:20 Urine Clarity CLEAR (CLEAR) 06/17/18 13:20 Urine pH 8.0 PH (5.0-7.5) H 06/17/18 13:20 Ur Specific Sheridan 1.020 (1.002-1.030) 06/17/18 13:20 Urine Protein NEGATIVE mg/dL (NEGATIVE) 06/17/18 13:20 Urine Glucose (UA) NEGATIVE mg/dL (NEGATIVE) 06/17/18 13:20 Urine Ketones NEGATIVE mg/dL (NEGATIVE) 06/17/18 13:20 Urine Occult Blood NEGATIVE (NEGATIVE) 06/17/18 13:20 Urine Nitrite NEGATIVE (NEGATIVE) 06/17/18 13:20 Urine Bilirubin NEGATIVE (NEGATIVE) 06/17/18 13:20 Urine Urobilinogen 1 (NORMAL) E.U./dL (NORMAL) 06/17/18 13:20 Ur Leukocyte Esterase NEGATIVE (NEGATIVE) 06/17/18 13:20 Ur Microscopic Review NOT INDICATED 06/17/18 13:20 Urine Culture Comments NOT INDICATED 06/17/18 13:20 Blood Type O POSITIVE 06/17/18 14:00 Blood Type Recheck O POSITIVE 06/17/18 12:52 Antibody Screen NEGATIVE 06/17/18 14:00 Crossmatch IS Only See Detail 06/17/18 14:00 - Procedures Procedures: Procedures ENDOSC POLYPECTOMY OF LG INTEST (05/01/14)
[2018-06-20] MEDS ORDERED: LIDOCAINE 2%-EPI 1:100000 20 ML MDV SUBQ ONE (17:37)
--- NOTE | 2018-06-20 17:44 | CONSULTATION NOTE ---
Referring Provider Name of Referring Provider:: Geenastaci Sarmientokennethpaukei Consult Date: 06/20/18 Chief Complaint - Chief Complaint Chief Complaint: left facial swelling History of Present Illness - History of Present Illness HPI Comment/Other: 62 yo F admitted Wednesday from ER w/ SOB. Found to have severe anemia w/ Hgb 3.8. 4U PRBCs, symptoms resolved. Upper, lower GI scope today, no active bleeding but the patient takes large amounts of ibuprofen for her OA. On wednesday she had also noticed small swelling of the L buccal sp. Slowly worsened during admission until this am when it suddenly became severe. CT soft tissue neck: 2.5 cm abscess, multiloculated, left buccal sp. OMFS consulted f or evaluation and managment of this abscess. Pt endorses pain and swelling of the L jaw. Denies SOB, dysphagia, dyspnea, trismus. Reports that a tooth on the lower left recently fractured. History - Past Medical History Cardiovascular: reports: Congestive heart failure Respiratory: reports: None Endocrine/Autoimmune: reports: None GI: reports: Other (concern for GIB) : reports: None HEENT: reports: Other (Swelling of the left face as noted above in HPI) Psych: reports: Depression Musculoskeletal: reports: None Derm: reports: None MRSA Hx?: No - Past Surgical History /OPERATIONS SPECIALIST: reports: section - Family & Social History Family History Comment/Other: Reviewed and noncontributory to this encounter - Substance History Use: Uses substance without health or social issues: Tobacco - POLST Patient has POLST: No Meds/Allgy - Home Medications Home Medications: Ambulatory Orders Medication Instructions Recorded Confirmed Ibuprofen 400 mg PO BID PRN 06/17/18 06/17/18 - Allergies Allergies/Adverse Reactions: Allergies Allergy/AdvReac Type Severity Reaction Status Date / Time Latex, Natural Rubber AdvReac Rash Verified 11/10/16 13:02 Review of Systems - Ears, Nose & Throat Ears, Nose & Throat: reports: Other Exam - Vital Signs Reviewed Vital Signs: Yes Vital Signs: Vital Signs x48h Temp Pulse Pulse Pulse Pulse Pulse Resp 06/20/18 15:59 36.3 C L 71 18 06/20/18 11:58 36.6 C 73 18 06/20/18 10:31 36.7 C 76 18 06/20/18 10:20 75 90 75 BP BP BP BP Pulse Ox 06/20/18 15:59 128/65 97 06/20/18 11:58 135/67 H 99 06/20/18 10:31 93 06/20/18 10:20 118/64 134/68 H 121/61 - Physical Exam General Appearance: positive: No acute distress, Alert Eyes Bilateral: positive: PERRL, EOMI ENT: positive: Other (CASSY wnl. Multiple decayed teeth. Large swelling of the left mandibular vestibule. No drainage. Likely associated with fractured mandibular tooth. Moderate swelling of the L buccal sp. Entire inferior border of the mandible is palpable. No swelling in the L submandibular sp.) Neck: positive: Nml inspection Respiratory: positive: Chest non-tender, No respiratory distress Cardiovascular: positive: Regular rate & rhythm, No murmur Peripheral Pulses: positive: 2+ Abdomen: positive: Non-tender, No distention Extremities: positive: Non-tender, Full ROM Neurologic/Psychiatric: positive: CN's nml (2-12) Conclusion/Plan - Diagnosis Diagnosis: Left buccal space abscess secondary to necrotic teeth. - Plan Plan: A: 62 yo F w/ L buccal sp abscess, 2.5 cm, 2/2 necrotic mandibular teeth. P: We anticipate bedside incision and drainage of this abscess tonight. - Continue Unasyn q6h while in house - d/c w/ Augmentin 875mg BID x 7 days - f/u in my office w/in two days. Will need teeth removed. - Pain management per IM - continue peridex mouthrinse outpatient x 7 days - from OMFS standpoint, ok for d/c after I&D No impending airway threat Thank you for including me in the care of Nicole Jeffers. Please let me know if you have any questions. David Hayes DDS [phone] - Lab Results Fish Bones: 06/20/18 05:20 06/20/18 05:20 - Diagnostic Imaging Results Diagnostic Imaging Results: positive: Final report reviewed
--- NOTE | 2018-06-21 00:23 | OPERATIVE REPORT ---
DATE OF SERVICE: 06/20/2018 Physician: David Hayes DDS PREOPERATIVE DIAGNOSIS: Left buccal space abscess secondary to necrotic mandibular teeth. POSTOPERATIVE DIAGNOSIS: Left buccal space abscess secondary to necrotic mandibular teeth. OPERATIVE PROCEDURE: Intraoral incision and drainage of the left buccal space and vestibular space. PRIMARY SURGEON: David Hayes DDS DRY CHAIN OPERATOR: None. GALLEY BOY: None. ANESTHESIA TYPE: Local anesthesia. IMPLANTS: None. SPECIMENS: None. ESTIMATED BLOOD LOSS: Less than 10 mL INDICATIONS FOR PROCEDURE: This is a 62-year-old female who was admitted for severe anemia. During the admission, she was found to have left facial swelling. A CT soft tissue of the neck demonstrated a 2.5 cm abscess in the left buccal space. It was decided that incision and drainage of this absces s was necessary. The patient will need removal of teeth as well, but she can have that procedure don e as an outpatient. The risks, benefits and alternatives of this procedure were discussed with the p atient, including pain, swelling, bleeding, infection, recurrence of the infection, need for further surgery, permanent numbness of the lip, chin and/or tongue, and osteomyelitis. Adequate time was giv en to answer all questions, and informed consent was obtained. DESCRIPTION OF PROCEDURE: The patient was encountered in the medical/surgical floor in her bed. She was placed in the supine position. Her mouth was rinsed with Peridex mouth rinse. Local anesthesia was achieved with 2% lidocaine with 1:100,000 epinephrine x6 mL. A 15 blade was used to make a vest ibular incision at the height of the swelling in the left mandibular vestibule. A significant amount of purulence was encountered. It was removed through the mouth with a Yankauer suction. Hand instr uments were then used to bluntly dissect through the buccal space and down a subperiosteal plane as w ell, encountering more purulence. The site was then thoroughly irrigated with copious amounts of dale rile saline. The wound was left open to allow for continued drainage. The Yankauer suction was left at bedside for the patient's comfort. A gauze was placed over the wound to aid in hemostasis, and t he care of the patient was returned to the nursing staff, with the patient in stable condition. COMPLICATIONS: None. TD: 06/20/2018 18:46
[2018-06-21] MEDS: AMPICILLIN/SULBACTAM 3 GM in SODIUM CHLORIDE 0.9% MINIBAG 100 ML IV SCH ×2 (03:25→08:58)
[2018-06-21] MEDS: SODIUM CHLORIDE FLUSH 0.9% 10 ML SYRINGE IVP PRN (03:26)
[2018-06-21] MEDS: ACETAMINOPHEN/CODEINE 300 MG/30 MG TABLET PO PRN (05:48)
[2018-06-21] MEDS: SODIUM CHLORIDE FLUSH 0.9% 10 ML SYRINGE IVP SCH (08:54)
[2018-06-21] MEDS: NICOTINE 14 MG PATCH TOP SCH (09:01)
[2018-06-21] MEDS: SACCHAROMYCES BOULARDII 250 MG CAPSULE PO SCH (09:03)
[2018-06-21] MEDS: SPIRONOLACTONE 25 MG TABLET PO SCH (09:03)
[2018-06-21] MEDS: buPROPion SR 100 MG TABLET PO SCH (09:03)
[2018-06-21] MEDS: FUROSEMIDE 20 MG TABLET PO SCH (09:03)
[2018-06-21] MEDS: FERROUS GLUCONATE 324 MG TABLET PO SCH (09:04)
[2018-06-21] MEDS: POLYETHYLENE GLYCOL 3350 17 GM PACKET PO SCH (09:04)
[2018-06-21] MEDS: CHLORHEXIDINE GLUCONATE 15 ML UDC PO SCH (09:07)
--- NOTE | 2018-06-21 11:07 | Discharge Plan ---
Discharge Plan Disposition: Home, Self Care Condition: Fair Prescriptions: Amox/Clav 875/125 [Augmentin] 1 each PO Q12H #14 tablet buPROPion [Wellbutrin Sr] 100 mg PO BID #60 tablet Ferrous Gluconate 240 mg PO DAILY #30 tablet Fluticasone/Salmeterol [Advair 250-50 Diskus] 1 each IH BID #1 blst.w.dev L.acid/L.casei/B.bif/B.gisel/Fos [Probiotic Blend Capsule] 1 each PO BID #30 capsule Nicotine 14 mg Patch [Nicoderm] 1 patch TOP DAILY #30 patch Spironolactone [Aldactone] 12.5 mg PO DAILY #30 tablet Wheat Dextrin [Benefiber] 1 each PO PRN PRN #30 packet PRN Reason: Diarrhea Diet: Regular Activity Restrictions: Activity as Tolerated Shower Restrictions: No Driving Restrictions: No Instruction Topics: Iron tablets capsules extended-release tablets, Nicotine skin patches, Amoxicillin Clavulanic Acid tablets, Fluticasone Salmeterol inhalation aerosol, Spironolactone tablets, Fatigue Manage Additional Instructions or Follow Up instructions: You were admitted to the hospital because you were very, very tired and weak. We found you to have a severe anemia. Normal amount of blood is 12 g of hemoglobin in a woman. You were 3.8. Anemia is usually from blood loss in the bowel. There are other causes but in a lady your age that is the cause we went to first. You were transfused 4 units of packed red cell pints. Your upper endoscopy was completely negative. We do think that possibly you have small ulcers from taking Motrin. The surgeon would like you to stop Motrin, take a stomach acid reducing drug for 30 days, and see him in a month. He said that you had a colonoscopy in the last 5 years and you do not need one right away, but he may end up recommending that if you are still anemic in a month. In addition to the anemia you had a dental abscess. Dr. David Hayes saw you and will need to see you in his office. He incised and debrided the abscess but thinks you may need to have 2 teeth pulled. He would like you to take antibiotics for the next 7 days. Since the antibiotics can cause diarrhea, take a probiotic capsule twice a day and take fiber daily. We were worried that your shortness of breath was from something else than the anemia so we did do an echocardiogram of your heart. The echocardiogram is an ultrasound. Although we found your left heart pump to be normal with an ejection fraction of 60%, you have severe, severe high blood pressure in your lungs from smoking that is causing your right heart to work under tremendous amount of pressure. You need to stop smoking immediately. We have also started you on Advair to reduce the pressure in your lungs and started you on Buspar/nictotine patch to help you stop smoking. In the future you may develop fluid retention in your liver and legs because of right-sided congestive heart failure. Make sure you see your primary care provider on a regular basis for this. We are giving you a small dose of a diuretic/water pill to go home on. Your primary care provider may want to check your electrolytes including kidney and potassium function in the next week. You may also need to have her reduce your nicotine patch from 14 mcg/day to 7 mcg/day. No Smoking: If you smoke, Please STOP! Call for help. Follow-up with: Geneva Woodward ARNP [Primary Care Provider] - David Hayes DDS [Provider Admit Priv/Credential] - Radu Harding MD [Provider Admit Priv/Credential] -
[2018-06-21 12:13] VITALS: BP 137/71
--- NOTE | 2018-06-23 02:35 | DISCHARGE SUMMARY ---
Physician: Edith Angulo MD DATE OF ADMISSION: 06/17/2018 DATE OF DISCHARGE: 06/21/2018 DISCHARGE DIAGNOSES 1. Anemia due to gastrointestinal blood loss. 2. High output congestive heart failure. 3. Hyponatremia. 4. Dental abscess. 5. Pulmonary hypertension. 6. Tobacco dependence. 7. Hypokalemia. PRINCIPAL PROCEDURES 1. Transfusion of 4 units packed red cells. 2. Esophagogastroduodenoscopy. 3. Intraoral incision and drainage of left buccal space and vestibular space. 4. Respiratory culture with normal kody. 5. Occult blood stool negative. 6. Echocardiogram with normal left ventricular size and function, ejection fraction 60%. Moderate l eft atrial enlargement. Severe pulmonary hypertension with PASP 63 mmHg. Right ventricle normal siz e and function. Mild mitral regurgitation. DISCHARGE MEDICATIONS 1. Augmentin 875/125 one tablet b.i.d. #14. 2. Wellbutrin SR 100 mg p.o. b.i.d. 3. Ferrous gluconate 240 mg p.o. daily. 4. Fluticasone with salmeterol 250/50 one puff b.i.d. 5. Probiotic 1 capsule b.i.d. for a week. 6. Nicotine patch 14 mcg topically for a month. 7. Spironolactone 12.5 mg daily. 8. Benefiber 1 tablet daily. HOSPITAL COURSE: She is a 62-year-old female who has a history of smoking, a suicide attempt by insu evelio overdose in January 2016, and osteoarthritis for which she takes Motrin on a daily basis. She has also recently developed tooth pain and is taking even more Motrin. For the last 6 months, she redding s noticed slowly progressing shortness of breath with activity, worse over the last 2 months. 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 In the last week, she has been unable to finish her sh ift because she is so exhausted and short of breath, now even at rest. She went to her PCP clinic to day. She could not be fitted in and they advised her to come to the emergency room. She notes that yesterday she broke a tooth while eating and today, there is severe swelling of her left lower face a nd jaw. In the emergency room, she described orthopnea, severe dyspnea with exertion, edema of her l egs and hands for the last 2 months, and intermittent palpitations for a few seconds at a time. Ther e is no syncope, but there was dizziness. She denied chest pain. Her labs came back showing a hemog lobin of 3.8 with an MCV that was very low. She reports black stools for about 3-6 months. She was admitted as probable chronic anemia due to chronic GI blood loss. The going theory was that she had nonsteroidal therapy as the cause of gastritis or ulcers. An EGD was performed and was compl etely negative. Because she has had a colonoscopy in the recent 5 years, Dr. Harding did not feel that the patient needed to have a colonoscopy at this point in time while she was an inpatient. She would like to see her in the outpatient status and possibly do a colonoscopy on her then. The patie nt was transfused 4 units of packed cells. Hemoglobin went to 9.2 and stayed stable the rest of her stay. Stool was fecal occult blood negative. Troponins were done to make sure she was not having is chemia with her shortness of breath and that was negative. Because she had dyspnea on exertion and it was not quite clear if it was only anemia causing dyspnea on exertion, she underwent an echocardiogram that showed high-output congestive heart failure, most l ikely secondary to her anemia. She was started on spironolactone for the edema in her hands and feet as well as the high-output congestive heart failure. As a tobacco smoker, she was started on Wellbutrin to help her stop smoking. She wheezed a little bi t during her stay and was put on Advair and also started on nicotine patch 14 mg a day. We would lik e her to do that for a month and then taper down to 7 mg a day for a month and then stop. Because of the iron deficiency anemia, she has been started on ferrous gluconate 240 mg a day. She was seen by dentistry because of an abscess and was seen by surgeon, Dr. David Hayes. She did in cision and debridement and put her on Augmentin that he would like her to complete for the next 7 day s. To prevent diarrhea, she was asked to take probiotic and Benefiber. She was told that she has pu lmonary hypertension from her smoking and probably undiagnosed COPD. During her stay, hypokalemia was present on admission of 3.4 and it was 3 at the lowest. With supple mentation, she was 4.0 on the day of discharge. It should be noted the patient has a random glucose of 116. Fasting glucose was 102-104. We have asked her to please follow up with Dr. David Hayes in the next 7 days. We have also asked he r to follow up with ASHWINI Smith, her primary care provider with regard to the use of new medica tions, especially to stop smoking. She also needs to see Dr. Lovelace seems to see Dr. Radu Harding , general surgery, or one of his colleagues in the office to evaluate her for possible need for colon oscopy in the outpatient setting. Greater than 30 minutes was spent coordinating discharge. cc: ASHWINI Smith TD: 06/22/2018 21:16
== END 2018-06-21 12:44 | disposition home or self-care (01) | DRG 378 ==
LOC: ED 11:03 → MS2 14:29
PROVIDERS: ADMIT Internal Medicine; ATTEND Specialist
PROC: 02HV33Z Insertion of Infusion Device into Superior Vena Cava, Percutaneous Approach (ICD-10-PCS; 2018-06-17)
PROC: 0DJ08ZZ Inspection of Upper Intestinal Tract, Via Natural or Artificial Opening Endoscopic (ICD-10-PCS; 2018-06-18)
PROC: 30233N1 Transfusion of Nonautologous Red Blood Cells into Peripheral Vein, Percutaneous Approach (ICD-10-PCS; principal; 2018-06-18 09:00)
PROC: 0C9X000 Drainage of Lower Tooth with Drainage Device, Open Approach, Single (ICD-10-PCS; 2018-06-20)
DX: K92.2 Gastrointestinal hemorrhage, unspecified (principal); E87.1 Hypo-osmolality and hyponatremia; D50.0 Iron deficiency anemia secondary to blood loss (chronic); I50.83 High output heart failure; I27.23 Pulmonary hypertension due to lung diseases and hypoxia; J44.9 Chronic obstructive pulmonary disease, unspecified; F17.210 Nicotine dependence, cigarettes, uncomplicated; E87.6 Hypokalemia; K04.7 Periapical abscess without sinus; M19.90 Unspecified osteoarthritis, unspecified site; I34.0 Nonrheumatic mitral (valve) insufficiency; Z72.89 Other problems related to lifestyle; Z79.1 Long term (current) use of non-steroidal anti-inflammatories (NSAID); Z91.5 Personal history of self-harm
CPT/HCPCS: 36415; 70491; 71046; 80048; 80053; 81003; 82272; 82803; 83690; 83735; 83880; 84484; 85025; 85610; 86850; 86900; 86901; 86920; 87070; 87205; 93005; 93306; 99283; 99285; 99406; A9270; J7120; P9016; Q9967; 71045; 81001; 82274; 87086

== ENCOUNTER 2018-07-08 10:16 | Outpatient (CLI) | payer MEDICAID ==
[2018-07-08 18:38] LABS: ALBUMIN/GLOBULIN RATIO 1.1 (1.0-2.2); BILIRUBIN,TOTAL 0.8 mg/dL (0.2-1.0); CALCIUM 9.1 mg/dL (8.5-10.3); CREATININE 0.7 mg/dL (0.4-1.0); TOTAL PROTEIN 7.6 g/dL (6.7-8.2)
[2018-07-08 19:32] LABS: BASOPHILS # (AUTO) 0.1 10^3/uL (0.0-0.1); BASOPHILS % (AUTO) 1.4 %; EOSINOPHILS # (AUTO) 0.1 10^3/uL (0.0-0.7); EOSINOPHILS % (AUTO) 2.7 %; HGB - HEMOGLOBIN 10.6 g/dL (12.0-16.0); LYMPHOCYTES # (AUTO) 1.2 10^3/uL (1.5-3.5); LYMPHOCYTES % (AUTO) 29.2 %; MEAN CORPUSCULAR HGB CONC 30.6 g/dL (32.0-36.0); MEAN CORPUSCULAR VOLUME 78.2 fL (81.0-99.0); MEAN PLATELET VOLUME 8.8 fL (7.9-10.8); MONOCYTES # (AUTO) 0.3 10^3/uL (0.0-1.0); MONOCYTES % (AUTO) 6.4 %; NEUTROPHILS # (AUTO) 2.5 10^3/uL (1.5-6.6); NEUTROPHILS % (AUTO) 60.3 %; PLT - PLATELET COUNT 238 10^3/uL (130-450); RED BLOOD COUNT 4.44 10^6/uL (4.20-5.40); RED CELL DISTRIBUTION WIDTH 33.3 % (12.0-15.0); WHITE BLOOD COUNT 4.2 x10^3/uL (4.8-10.8)
[2018-07-08 21:28] LABS: PLATELET ESTIMATE, MANUAL NORMAL (130-450,000) (NORMAL); PLATELET MORPHOLOGY NORMAL APPEARANCE (NORMAL)
[2018-07-09 11:27] LABS: HEPATITIS C ANTIBODY REACTIVE (NON-REACTIVE)
== END 2018-07-08 10:17 | disposition home or self-care (01) ==
LOC: LAB.F 10:16
PROVIDERS: ATTEND Nurse Practitioner Family
DX: I50.9 Heart failure, unspecified (principal); D50.0 Iron deficiency anemia secondary to blood loss (chronic); B19.20 Unspecified viral hepatitis C without hepatic coma
CPT/HCPCS: 36415; 80053; 85025; 86803

== ENCOUNTER 2018-07-21 11:28 | Outpatient (CLI) | payer MEDICAID ==
[2018-07-21 17:53] LABS: INR 1.1 (0.8-1.2); PT - PROTHROMBIN TIME 11.9 secs (9.9-12.6)
[2018-07-21 18:33] LABS: % IRON SATURATION 38 % (20-50); IRON 189 ug/dL (28-170); TOTAL IRON BINDING CAPACITY 494 ug/dL (250-450); TRANSFERRIN 353 mg/dL (192-382)
[2018-07-21 18:52] LABS: HB2 TOTAL 11.7 g/dL; HEMOGLOBIN A1C 0.33 g/dL; HEMOGLOBIN A1C % 4.7 % (4.6-6.2)
[2018-07-22 13:06] LABS: HEPATITIS B SURFACE ANTIGEN NON-REACTIVE (NON-REACTIVE)
== END 2018-07-21 11:29 | disposition home or self-care (01) ==
LOC: LAB.F 11:28
PROVIDERS: ATTEND Nurse Practitioner Family
DX: B19.20 Unspecified viral hepatitis C without hepatic coma (principal); D50.0 Iron deficiency anemia secondary to blood loss (chronic); Z13.1 Encounter for screening for diabetes mellitus
CPT/HCPCS: 36415; 82728; 83036; 83540; 84466; 85610; 86317; 86709; 87340

== ENCOUNTER 2018-07-22 06:30 | Outpatient (CLI) | payer MEDICAID | END 2018-07-22 23:59 | disposition home or self-care (01) | LOC: LAB.R 06:30 | PROVIDERS: ATTEND Nurse Practitioner Family | DX: B19.20 Unspecified viral hepatitis C without hepatic coma (principal) | CPT/HCPCS: 81599; 82103 ==

== ENCOUNTER 2018-12-02 11:20 | Emergency (ER) | payer SELFPAY ==
--- NOTE | 2018-12-02 13:03 | ED Physician Documentation ---
History of Present Illness - Stated complaint Stated Complaint: LT HIP PX - Chief complaint Chief Complaint: Ext Problem - History obtained from History obtained from: Patient - Additonal information Additional information: This is a 63-year-old female who presents for continuing left hip pain. Patient states that she has had this issue for several months, the past she has been seen and been told that she has some Osteoarthritis of her hip, however this has worsened over the last 48 hours to the point that it is interfering with her standing on her feet and working. She has not had any fever, numbness, tingling, or weakness. She denies any lower back pain or bowel or bladder problems. She is able to walk with discomfort. 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 - Present Medications Home Medications: Ambulatory Orders Medication Instructions Recorded Confirmed Amox/Clav 875/125 [Augmentin] 1 each PO Q12H #14 tablet 06/21/18 Ferrous Gluconate 240 mg PO DAILY #30 tablet 06/21/18 Fluticasone/Salmeterol [Advair 1 each IH BID #1 blst.w.dev 06/21/18 250-50 Diskus] L.acid/L.casei/B.bif/B.gisel/Fos 1 each PO BID #30 capsule 06/21/18 [Probiotic Blend Capsule] Nicotine 14 mg Patch [Nicoderm] 1 patch TOP DAILY #30 patch 06/21/18 Spironolactone [Aldactone] 12.5 mg PO DAILY #30 tablet 06/21/18 Wheat Dextrin [Benefiber] 1 each PO PRN PRN #30 packet 06/21/18 buPROPion [Wellbutrin Sr] 100 mg PO BID #60 tablet 06/21/18 Methocarbamol 500 mg PO TID PRN 5 Days #15 tablet 12/02/18 - Allergies Allergies/Adverse Reactions: Allergies Allergy/AdvReac Type Severity Reaction Status Date / Time Latex, Natural Rubber AdvReac Rash Verified 12/02/18 11:33 NSAIDS (Non-Steroidal AdvReac Unknown Verified 12/02/18 11:33 Anti-Inflamma - Social History Does the pt smoke?: Yes Smoking Status: Current every day smoker Does the pt drink ETOH?: Yes Does the pt have substance abuse?: Yes - Immunizations Immunizations are current?: Yes - POLST Patient has POLST: No PD ED PE NORMAL - Vitals Vital signs reviewed: Yes - General General: Alert and oriented X 3, No acute distress - Cardiac Cardiac: RRR, No murmur - Respiratory Respiratory: No respiratory distress - Abdomen Abdomen: Non distended - Back Back: No spinal TTP - Derm Derm: Warm and dry - Extremities Extremities: No deformity, Other (There is no tenderness to palpation of the knee or mid/distal femur. Patient has very mild tenderness with deep palpation along the left hip joint line. There is full active range of motion of the hip with some discomfort. No crepitus. Patient is able to ambulate independently. Distal strength with knee extension ankle flexion and dorsiflexion is 5 out of 5 bilaterally. Sensation to light touch intact over bilateral lower extremities) - Neuro Neuro: Alert and oriented X 3 - Psych Psych: Normal mood, Normal affect Results - Vitals Vitals: Oxygen O2 Source Room air - Rads (name of study) XR hip L Radiology: Prelim report reviewed PD MEDICAL DECISION MAKING - ED course Complexity details: considered differential (Arthritis, strain, sprain, synovitis, fracture, dislocation) ED course: On evaluation patient is nontoxic-appearing. She was slightly tachycardic in triage, however on my exam when she is at rest and not moving her hip her heart rate is within normal limits. She has a normal neurovascular exam of her bilateral lower extremities, full active range of motion of her hip, she is able to ambulate independently. This appears to be a flare of chronic hip pain. X- ray was obtained of the left hip, which showed some stable bilateral hip osteoarthritis, no Fractures or bony lesions. She is nontoxic, has good range of motion of her hip, no fever, no signs of infection. I discussed this result, and supportive care with rest ice and acetaminophen I prescribed your small amount of methocarbamol to be used for breakthrough pain, and discussed the risks of this medication. I also recommended she follow-up with her primary care provider. I discussed return precautions and patient was discharged home Departure - Departure Disposition: 01 Home, Self Care Clinical Impression: Pain of lower extremity Qualifiers: Laterality: left Qualified Code(s): M79.605 - Pain in left leg Condition: Good Instructions: ED RICE Follow-Up: Your,Primary Care Provider [Other] (Follow up in 1-2 weeks for evaluation) Prescriptions: Methocarbamol 500 mg PO TID PRN 5 Days #15 tablet PRN Reason: Pain Comments: He was seen today for hip pain. You appear to have some arthritis of your hips, which may be causing some of your pain. Please Avoid activities that make the pain much worse, continue to take Tylenol, and follow-up with your primary care provider. If you develop fever weakness, or numbness, return to the emergency department. Forms: Activity restrictions Discharge Date/Time: 12/02/18 15:00
--- NOTE | 2018-12-02 14:14 | XRAY Report ---
Reason: Left hip pain Procedure Date: 12/02/2018 Accession Number: [id number] / [id number] Procedure: XR - Hip w/Pelvis 2-3V LT CPT Code: FULL RESULT: EXAM: LEFT HIP RADIOGRAPHY EXAM DATE: 12/02/2018 01:53 PM. CLINICAL HISTORY: Left hip pain. COMPARISON: HIP BILAT 01/08/2016 1:43 PM. TECHNIQUE: 2 views. FINDINGS: Bones: Normal. No fractures or bone lesion. Joints: Mild superior hip joint space narrowing, as before. Mild bilateral femoral head and acetabular osteophyte formation, as before. Minimal chondrocalcinosis of the pubic symphysis. Sacroiliac joints are unremarkable. Soft Tissues: Normal. No soft tissue swelling. IMPRESSION: Moderate bilateral hip osteoarthritis, as before. RADIA
[2018-12-02 15:01] VITALS: BP 140/80
== END 2018-12-02 15:00 | disposition home or self-care (01) ==
LOC: ED 11:20
DX: M16.0 Bilateral primary osteoarthritis of hip (principal); M79.605 Pain in left leg; F17.200 Nicotine dependence, unspecified, uncomplicated
CPT/HCPCS: 99283; 99284

== ENCOUNTER 2020-04-03 10:35 | Emergency (ER) | payer BC ==
[2020-04-03] MEDS ORDERED: PANTOPRAZOLE 40 MG VIAL IVP STA (10:50)
[2020-04-03] MEDS ORDERED: ONDANSETRON 4 MG/2 ML VIAL IVP STA (10:59)
[2020-04-03] MEDS ORDERED: MORPHINE 2 MG/ML CARPUJECT IVP STA (10:59)
--- NOTE | 2020-04-03 11:02 | ED Physician Documentation ---
PD HPI ABD PAIN - Stated complaint Stated Complaint: FEMALE - Chief complaint Chief Complaint: Abd Pain - History obtained from History obtained from: Patient - Additional information Additional information: 64-year-old woman with history of GI bleed of unknown source in June 2018, EGD was negative at that time, she required 4 units of transfusion at that time. She also has a history of multiple joint arthritis and as such takes ibuprofen daily, she also drinks alcohol daily after work. Despite knowing she should do either of these things because of her history as well as her known hepatitis C positivity. She had about 4 days of watery black stools and was seen in the clinic for same, confirmed to be guaiac positive in the clinic. Sent here for further evaluation and treatment. Of note there was a concern on exam in the clinic about a pulsatile abdominal mass concerning for AAA in this 64-year-old woman with history of tobacco abuse. She does have upper abdominal pain and na usea without vomiting. 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 04/03/20 - Allergies Allergies/Adverse Reactions: Allergies Allergy/AdvReac Type Severity Reaction Status Date / Time Latex, Natural Rubber AdvReac Rash Verified 04/03/20 10:54 NSAIDS (Non-Steroidal AdvReac Unknown Verified 04/03/20 10:54 Anti-Inflamma - Social History Does the pt smoke?: Yes Smoking Status: Current every day smoker Does the pt drink ETOH?: Yes Does the pt have substance abuse?: Yes - Immunizations Immunizations are current?: Yes - POLST Patient has POLST: No PD ED PE NORMAL - Vitals Vital signs reviewed: Yes - General General: Alert and oriented X 3, No acute distress - HEENT HEENT: PERRL, EOMI - Neck Neck: Supple, no meningeal sign, No bony TTP - Cardiac Cardiac: RRR, No murmur - Respiratory Respiratory: No respiratory distress, Clear bilaterally - Abdomen Abdomen: Soft, Other (No abdominal tenderness but I do confirm a pulsatile mid abdominal mass.) - Back Back: No CVA TTP, No spinal TTP - Derm Derm: Normal color, Warm and dry - Extremities Extremities: No edema, No calf tenderness / cord - Neuro Neuro: Alert and oriented X 3, Normal speech Results - Vitals Vitals: Vital Signs - 24 hr 04/03/20 04/03/20 04/03/20 10:45 11:24 11:30 Temperature 36.5 C Heart Rate 71 76 76 Respiratory 16 24 24 Rate Blood Pressure 132/88 H 142/82 H 142/82 H O2 Saturation 96 98 98 04/03/20 04/03/20 12:00 12:30 Temperature Heart Rate 63 63 Respiratory 22 13 Rate Blood Pressure 138/77 H 144/72 H O2 Saturation 99 98 Oxygen O2 Source Room air - Labs Labs: Laboratory Tests 04/03/20 04/03/20 11:45 11:45 WBC 6.7 RBC 4.56 Hgb 15.0 Hct 42.8 MCV 93.9 MCH 32.9 H MCHC 35.0 RDW 12.7 Plt Count 213 MPV 11.2 H Neut # (Auto) 4.6 Lymph # (Auto) 1.3 L [place] # (Auto) 0.6 Eos # (Auto) 0.1 Baso # (Auto) 0.1 Absolute Nucleated RBC 0.00 Nucleated RBC % 0.0 Sodium 137 Potassium 3.1 L Chloride 102 Carbon Dioxide 24 Anion Gap 11.0 BUN 20 Creatinine 0.5 Estimated GFR (MDRD) 125 Glucose 105 H Calcium 9.7 Total Bilirubin 2.2 H AST 40 ALT 34 Alkaline Phosphatase 99 Total Protein 8.5 H Albumin 4.4 Globulin 4.1 Albumin/Globulin Ratio 1.1 Lipase 26 - Rads (name of study) CT A/P Radiology: EMP read contemporaneously (NAD) Procedures - General procedure General procedure: Difficult for IV access. I placed an 18g R EJ PIV after chloraprep. PD MEDICAL DECISION MAKING - ED course ED course: 64-year-old woman presents with what sounds like an upper GI bleed, probably from a combination of taking Aleve daily, hepatitis C, and drinking. Her H&H is very normal. There is concern for pulsatile abdominal mass and a CT was done without finding of AAA. Discussed with her the need to stop NSAIDs, she can use low-dose Tylenol and may need something else after work. Also the need to stop drinking especially in light of her hepatitis. Departure - Departure Disposition: Home, Self Care Clinical Impression: Upper GI bleed Condition: Good Record reviewed to determine appropriate education?: Yes Instructions: ED Bleed UGI Stable Prescriptions: Omeprazole 40 mg PO DAILY #30 capsule. Acetaminophen/Cod 300/30 [Tylenol #3] 1 each PO Q4-6H PRN #30 tablet PRN Reason: Pain Comments: Thankfully your work-up today shows that you do not have significant anemia or frankly any anemia at all. The cause of the bleeding is likely a combination of anti-inflammatory use (Aleve), alcohol and chronic hepatitis C. You can take Tylenol up to 3 g a day for aches and pains and I am also prescribing some Tylenol 3 with codeine when you do not have to drive or work and the pain is bad. Return for new or worsening symptoms. Follow-up with your physician. No more anti-inflammatories such as Motrin or Aleve ever. You need to abstain from alcohol.
[2020-04-03] MEDS ORDERED: IOVERSOL 320 100 ML VIAL IVP ONE (11:12)
[2020-04-03 12:03] LABS: BASOPHILS # (AUTO) 0.1 10^3/uL (0.0-0.1); BASOPHILS % (AUTO) 1.2 %; EOSINOPHILS # (AUTO) 0.1 10^3/uL (0.0-0.7); EOSINOPHILS % (AUTO) 1.5 %; LYMPHOCYTES # (AUTO) 1.3 10^3/uL (1.5-3.5); LYMPHOCYTES % (AUTO) 19.5 %; MEAN CORPUSCULAR HEMOGLOBIN 32.9 pg (27.0-31.0); MEAN CORPUSCULAR VOLUME 93.9 fL (81.0-99.0); MEAN PLATELET VOLUME 11.2 fL (7.9-10.8); MONOCYTES # (AUTO) 0.6 10^3/uL (0.0-1.0); MONOCYTES % (AUTO) 9.1 %; NEUTROPHILS # (AUTO) 4.6 10^3/uL (1.5-6.6); NEUTROPHILS % (AUTO) 68.6 %; PLT - PLATELET COUNT 213 10^3/uL (130-450); RED BLOOD COUNT 4.56 10^6/uL (4.20-5.40); RED CELL DISTRIBUTION WIDTH 12.7 % (12.0-15.0); WHITE BLOOD COUNT 6.7 x10^3/uL (4.8-10.8)
[2020-04-03 12:16] LABS: ALBUMIN 4.4 g/dL (3.2-5.5); ALBUMIN/GLOBULIN RATIO 1.1 (1.0-2.2); BILIRUBIN,TOTAL 2.2 mg/dL (0.2-1.0); CALCIUM 9.7 mg/dL (8.5-10.3); CREATININE 0.5 mg/dL (0.4-1.0); TOTAL PROTEIN 8.5 g/dL (6.7-8.2)
--- NOTE | 2020-04-03 12:33 | CT Report ---
PROCEDURE: Abdomen/Pelvis WO INDICATIONS: pulsatile abd mass TECHNIQUE: Noncontrast 5 mm thick sections acquired from the diaphragms to the symphysis. 5 mm coronal and sagi ttal reformats were then performed. For radiation dose reduction, the following was used: automated exposure control, adjustment of mA and/or kV according to patient size. COMPARISON: None. FINDINGS: Image quality: Excellent. ABDOMEN: Lung bases: Lung bases are clear. Heart size is normal. Solid organs: Liver and spleen are normal in size. Gallbladder is normal Pancreas is normal in con tours. No adrenal nodules. Kidneys are normal in size, without hydronephrosis or nephrolithiasis. Peritoneum and bowel: Unenhanced bowel loops demonstrate normal wall thickness and caliber. No free fluid or air. Nodes and vessels: No retroperitoneal or mesenteric adenopathy by size criteria. Aorta and inferior vena cava are normal in caliber. Miscellaneous: No ventral hernias. PELVIS: Genitourinary: Bladder wall thickness is normal. Miscellaneous: No inguinal hernias or adenopathy. Bones: The lumbar spine has multilevel degenerative changes with disc disease at L4-5 and L5-S1. No suspicious bony lesions. No vertebral body compression fractures. IMPRESSION: 1. No abdominal aortic aneurysm. 2. No acute abdominal or pelvic abnormality. 3. No abnormality in the left upper quadrant in the area marked as the palpable abnormality. Reviewed by: Nain Polk on 04/03/2020 12:32 PM PST Approved by: Nain Polk on 04/03/2020 12:32 PM PST Station ID: [id number]
[2020-04-03 12:55] VITALS: BP 145/89
== END 2020-04-03 12:57 | disposition home or self-care (01) ==
LOC: ED 10:35
DX: K92.1 Melena (principal); A04.72 Enterocolitis due to Clostridium difficile, not specified as recurrent; R19.00 Intra-abdominal and pelvic swelling, mass and lump, unspecified site; F10.10 Alcohol abuse, uncomplicated; B18.2 Chronic viral hepatitis C; M19.91 Primary osteoarthritis, unspecified site; Z79.1 Long term (current) use of non-steroidal anti-inflammatories (NSAID); F17.200 Nicotine dependence, unspecified, uncomplicated
CPT/HCPCS: 36415; 74176; 80053; 81599; 82270; 83690; 85025; 86850; 86900; 86901; 87493; 96374; 96375; 99284; Q9967; 85610; 87045; 87046

== ENCOUNTER 2021-02-16 10:26 | Outpatient (CLI) | payer BC | END 2021-02-16 10:27 | disposition critical access hospital (66) | LOC: EMS 10:26 | DX: K92.1 Melena (principal) | CPT/HCPCS: A0425; A0429 ==

== ENCOUNTER 2021-02-16 11:08 | Observation (INO) | payer BC ==
[2021-02-16] MEDS ORDERED: MORPHINE 2 MG/ML CARPUJECT IVP STA (11:55)
[2021-02-16] MEDS ORDERED: SODIUM CHLORIDE 0.9% 1,000 ML IV STA (11:55)
[2021-02-16] MEDS ORDERED: ONDANSETRON 4 MG/2 ML VIAL IVP STA (11:55)
[2021-02-16] MEDS ORDERED: IOVERSOL 320 100 ML VIAL IVP ONE ×2 (12:13→13:57)
[2021-02-16 12:21] LABS: BASOPHILS % (AUTO) 1.2 %; EOSINOPHILS # (AUTO) 0.1 10^3/uL (0.0-0.7); EOSINOPHILS % (AUTO) 1.5 %; HCT - HEMATOCRIT 37.1 % (37.0-47.0); HGB - HEMOGLOBIN 12.2 g/dL (12.0-16.0); LYMPHOCYTES # (AUTO) 1.1 10^3/uL (1.5-3.5); LYMPHOCYTES % (AUTO) 33.6 %; MEAN CORPUSCULAR HEMOGLOBIN 32.3 pg (27.0-31.0); MEAN CORPUSCULAR HGB CONC 32.9 g/dL (32.0-36.0); MEAN CORPUSCULAR VOLUME 98.1 fL (81.0-99.0); MEAN PLATELET VOLUME 10.5 fL (7.9-10.8); MONOCYTES # (AUTO) 0.4 10^3/uL (0.0-1.0); MONOCYTES % (AUTO) 11.7 %; NEUTROPHILS # (AUTO) 1.7 10^3/uL (1.5-6.6); PLT - PLATELET COUNT 156 10^3/uL (130-450); RED BLOOD COUNT 3.78 10^6/uL (4.20-5.40); RED CELL DISTRIBUTION WIDTH 13.5 % (12.0-15.0); WHITE BLOOD COUNT 3.3 x10^3/uL (4.8-10.8)
[2021-02-16 12:27] LABS: BILIRUBIN,TOTAL 0.4 mg/dL (0.2-1.0); CALCIUM 8.9 mg/dL (8.5-10.3); CREATININE 0.5 mg/dL (0.4-1.0); ETOH - ETHANOL 109.5 mg/dL; POTASSIUM 3.6 mmol/L (3.5-5.0)
[2021-02-16 12:48] LABS: INR 1.1 (0.8-1.2); PT - PROTHROMBIN TIME 12.7 secs (9.9-12.6)
[2021-02-16 12:51] LABS: MUDS CUTOFF CONCENTRATIONS CUTOFF CONC BELOW:
[2021-02-16 13:14] LABS: COCAINE SCREEN URINE NEGATIVE (NEGATIVE); METHAMPHETAMINES SCREEN, URINE NEGATIVE (NEGATIVE); OPIATE SCREEN, URINE POSITIVE (NEGATIVE); THC CANNABINOID SCREEN, URINE POSITIVE (NEGATIVE)
[2021-02-16 13:15] LABS: AMPHETAMINE SCREEN,URINE NEGATIVE (NEGATIVE); BARBITURATE SCREEN,UR NEGATIVE (NEGATIVE); BENZODIAZEPINES SCREEN, URINE NEGATIVE (NEGATIVE); METHADONE SCREEN, URINE NEGATIVE (NEGATIVE); OXYCODONE SCREEN, URINE NEGATIVE (NEGATIVE); PROPOXYPHENE SCREEN, URINE NEGATIVE (NEGATIVE); TRICYCLIC ANTIDEPRESSANT,URINE NEGATIVE (NEGATIVE)
--- NOTE | 2021-02-16 13:51 | ED Physician Documentation ---
PD HPI GI BLEED - Stated complaint Stated Complaint: ABD PX/RECTAL BLEED - Chief complaint Chief Complaint: Abd Pain - History obtained from History obtained from: Patient - Additional information Additional information: Is 65-year-old female coming to the emergency department with complaint of rectal bleed. Reports left upper quadrant abdominal pain and four episodes of large-volume bright red blood per rectum this morning. Has history of pulmonary hypertension, previous GI bleed, anemia, high-output cardiac failure. Endorses for nausea without vomiting. Denies chest pain or shortness of breath. Review of Systems Ten Systems: 10 systems reviewed and negative Constitutional: denies: Fever Eyes: denies: Loss of vision Ears: denies: Loss of hearing Nose: denies: Rhinorrhea / runny nose Cardiac: denies: Chest pain / pressure GI: reports: Abdominal Pain, Nausea, Bloody / black stool. 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 04/03/20 Vancomycin [Vancocin] 125 mg PO QID #40 capsule 04/03/20 - Allergies Allergies/Adverse Reactions: Allergies Allergy/AdvReac Type Severity Reaction Status Date / Time Latex, Natural Rubber AdvReac Rash Verified 02/16/21 11:21 NSAIDS (Non-Steroidal AdvReac Unknown Verified 02/16/21 11:21 Anti-Inflamma - Social History Does the pt smoke?: Yes Smoking Status: Current every day smoker Does the pt drink ETOH?: Yes Does the pt have substance abuse?: Yes - Immunizations Immunizations are current?: Yes - POLST Patient has POLST: No PD ED PE NORMAL - General General: Alert and oriented X 3 - HEENT HEENT: Atraumatic - Neck Neck: Supple, no meningeal sign - Cardiac Cardiac: RRR, No gallop, Strong equal pulses - Respiratory Respiratory: No respiratory distress, Clear bilaterally - Back Back: No CVA TTP - Derm Derm: Normal color - Extremities Extremities: No deformity - Neuro Verbal: Oriented - Psych Psych: Normal mood PD ED PE EXPANDED - Abdomen Abdomen: Tender to palpation, LLQ - Rectal Rectal: Heme Occult Pos - QC +, Hemorrhoid Results - Vitals Vitals: Vital Signs - 24 hr 02/16/21 02/16/21 02/16/21 11:09 11:24 12:28 Temperature 36.4 C L Heart Rate 88 79 86 Respiratory 16 17 11 L Rate Blood Pressure 137/88 H 137/88 H 142/76 H O2 Saturation 94 94 94 02/16/21 02/16/21 15:00 16:00 Temperature Heart Rate 79 89 Respiratory 16 19 Rate Blood Pressure 137/71 H 113/69 O2 Saturation 93 93 Oxygen O2 Source Room air - EKG (time done) 1202 Rate: Rate (enter#) (80) Rhythm: NSR [place]: Normal Intervals: Normal MS, QRS normal QRS: Normal Ischemia: Normal ST segments. No: Hyperacute T waves - Labs Labs: Microbiology 02/16/21 15:53 Occult Blood - Final Stool Laboratory Tests 02/16/21 02/16/21 02/16/21 12:07 12:07 12:07 WBC 3.3 L RBC 3.78 L Hgb 12.2 Hct 37.1 MCV 98.1 MCH 32.3 H MCHC 32.9 RDW 13.5 Plt Count 156 MPV 10.5 Neut # (Auto) 1.7 Lymph # (Auto) 1.1 L Powell # (Auto) 0.4 Eos # (Auto) 0.1 Baso # (Auto) 0.0 Absolute Nucleated RBC 0.00 Nucleated RBC % 0.0 PT 12.7 H INR 1.1 Sodium Potassium Chloride Carbon Dioxide Anion Gap BUN Creatinine Estimated GFR (MDRD) Glucose Calcium Magnesium Total Bilirubin AST ALT Alkaline Phosphatase Troponin I High Sens Total Protein Albumin Globulin Albumin/Globulin Ratio Lipase Urine Opiates Screen Ur Oxycodone Screen Urine Methadone Screen Ur Propoxyphene Screen Ur Barbiturates Screen Ur Tricyclics Screen Ur Phencyclidine Scrn Ur Amphetamine Screen U Methamphetamines Scrn U Benzodiazepines Scrn Urine Cocaine Screen U Cannabinoids Screen Ethyl Alcohol Blood Type O POSITIVE Antibody Screen NEGATIVE 02/16/21 02/16/21 02/16/21 12:07 12:07 12:42 WBC RBC Hgb Hct MCV MCH MCHC RDW Plt Count MPV Neut # (Auto) Lymph # (Auto) Powell # (Auto) Eos # (Auto) Baso # (Auto) Absolute Nucleated RBC Nucleated RBC % PT INR Sodium 135 Potassium 3.6 Chloride 99 L Carbon Dioxide 26 Anion Gap 10.0 BUN 9 Creatinine 0.5 Estimated GFR (MDRD) 125 Glucose 91 Calcium 8.9 Magnesium 2.0 Total Bilirubin 0.4 AST 82 H ALT 32 Alkaline Phosphatase 108 Troponin I High Sens 4.6 Total Protein 8.0 Albumin 4.0 Globulin 4.0 Albumin/Globulin Ratio 1.0 Lipase 29 Urine Opiates Screen POSITIVE H Ur Oxycodone Screen NEGATIVE Urine Methadone Screen NEGATIVE Ur Propoxyphene Screen NEGATIVE Ur Barbiturates Screen NEGATIVE Ur Tricyclics Screen NEGATIVE Ur Phencyclidine Scrn NEGATIVE Ur Amphetamine Screen NEGATIVE U Methamphetamines Scrn NEGATIVE U Benzodiazepines Scrn NEGATIVE Urine Cocaine Screen NEGATIVE U Cannabinoids Screen POSITIVE H Ethyl Alcohol 109.5 Blood Type Antibody Screen PD MEDICAL DECISION MAKING - ED course Complexity details: reviewed results, re-evaluated patient, d/w patient ED course: Patient is 65-year-old female coming to the emergency department today with complaint of left upper quadrant santiago pain and bright red blood per rectum. Afebrile, hemodynamically stable on arrival to the emergency department. N otable left upper quadrant tenderness to palpation without guarding, rebound or rigidity on physical exam. EKG is outlined above is negative for indications of acute cardiac ischemia or dysrhythmia. Labs obtained within normal limits. CT abdomen pelvis was positive for dilated loops of bowel consistent with enteritis without other acute finding. Patient's rectal exam demonstrated gross blood that was guaiac positive. Her care was discussed with the hospitalist service. At this time she will be placed for further evaluation and treatment. Departure - Departure Disposition: ED Place in Observation Clinical Impression: Abdominal pain, Enteritis, Lower GI bleed Condition: Stable
--- NOTE | 2021-02-16 14:24 | CT Report ---
PROCEDURE: Abdomen/Pelvis W INDICATIONS: LUQ abd pain, BRBPR CONTRAST: IV CONTRAST: Optiray 320 ml: 100 PO CONTRAST: *NO PO CONTRAST TECHNIQUE: After the administration of nonionic iodinated contrast, 5 mm thick sections acquired from the diaphr agms to the symphysis. 5 mm thick coronal and sagittal reformats were acquired. For radiation dose reduction, the following was used: automated exposure control, adjustment of mA and/or kV according to patient size. COMPARISON: None. FINDINGS: Image quality: Excellent. ABDOMEN: Lung bases: Mild basilar atelectasis. Lung bases are otherwise clear. Heart size is normal. Solid organs: Liver and spleen are normal in size and enhancement. Gallbladder is unremarkable. Com mon bile duct measures up to 1.0 cm in greatest diameter. Pancreas enhances normally. No adrenal nod ules. Kidneys demonstrate normal size and enhancement, without hydronephrosis. Peritoneum and bowel: Stomach is unremarkable. There are multiple loops of duodenum within the left u pper quadrant which demonstrate mild prominence and/or fluid-filled with mild wall thickening. There is a small appendicolith. The appendix is otherwise normal. Colon is normal in course and caliber. No wall thickening or surrounding inflammation. No free fluid or air. Nodes and vessels: No retroperitoneal or mesenteric adenopathy by size criteria. Diffuse vascular c alcifications noted throughout the aorta and branch vessels. Aorta and inferior vena cava are normal in size. Miscellaneous: No ventral hernias. PELVIS: Genitourinary: Bladder wall thickness is normal. Miscellaneous: No inguinal hernias or adenopathy. Bones: No suspicious bony lesions. Advanced degenerative changes of the spine and hips. No acute oss eous abnormality. No vertebral body compression fractures. IMPRESSION: Mildly prominent fluid-filled loops of jejunum within the left upper quadrant with mild wall thickeni ng with findings favoring enteritis. Developing small bowel obstruction/ileus is not excluded. Mild dilation of the common bile duct measuring up to 1.0 cm. Recommend correlation with lab values f or evidence of obstruction. If positive lab values, consider direct evaluation versus nonemergent MRC P. Reviewed by: Luis Antonio Acevedo DO on 02/16/2021 1:22 PM ANTONIO Approved by: Luis Antonio Acevedo DO on 02/16/2021 1:22 PM AKKO Station ID: [id number]
[2021-02-16] MEDS ORDERED: ONDANSETRON 4 MG/2 ML VIAL IVP PRN (17:13)
[2021-02-16] MEDS ORDERED: ONDANSETRON ODT 4 MG TABLET TL PRN (17:13)
[2021-02-16] MEDS ORDERED: SODIUM CHLORIDE FLUSH 0.9% 10 ML SYRINGE IVP PRN (17:13)
[2021-02-16] MEDS ORDERED: ACETAMINOPHEN 325 MG TABLET PO PRN (17:13)
[2021-02-16] MEDS ORDERED: PANTOPRAZOLE 40 MG VIAL IVP STA (17:27)
--- NOTE | 2021-02-16 17:36 | HISTORY & PHYSICAL EXAMINATION ---
Chief Complaint - Chief Complaint Chief Complaint: bloody diarrhea History of Present Illness - Admitted From Admitted From:: home - History Obtained From Records Reviewed: [facility] and [employer] [facility] History obtained from: Dr. Velez Exam Limitations: none - History of Present Illness HPI Comment/Other: This is a lady who has a previous history of GI bleeding. In 2013 she had a screening colonoscopy that showed a polyp. This was with Dr. Yves Rivas. She then presented to the hospital in June 2018 with severe dyspnea, edema of hands and legs with palpitations. At that time there was no GI complaints but her hemoglobin was 3.8. She underwent an EGD with Dr. Harding which was without any pathologic findings. He recommended a colonoscopy. In looking at her EMR through her primary care provider, there is no follow-up colonoscopy. She then presented to the walk-in clinic in April 2020 with bloody diarrhea of which was C. difficile positive and she was treated with vancomycin p.o.. She says that she regardless of is basically healthy. She has not seen a primary care provider in a few years. She also said that is very expensive. She has health insurance through her job but it does not cover very much. She lives in a skilled nursing. 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 She feels like she is stable in her life. Has good friends that she likes. She really likes her coworkers. In the skilled nursing she has her own room and feels safe. She is a daily alcohol drinker. She does about 6-8 drinks of rum a day. No history of withdrawal or seizures. Has a history of hepatitis C but has not been diagnosed with esophageal varices. She has not been treated for the hepatitis C. She does have a history of hemorrhoids. She does not really eat out a lot. No one around her that is eaten with her is sick. She felt perfectly fine until this morning. While she was at work she had sudden lower abdominal cramping. Light sweats. Mild nausea. Then 4 [id number] bloody bowel movements. She is not had any more bloody bowel movement since this morning. Initial blood pressure was 137/88. Heart rate 88. Respirations 16. 94% on room air. She had tenderness of the left upper quadrant that was mild. But normal bowel sounds. No rebound or guarding. She had frankly bloody stool that was fecal occult blood positive. CMP is normal with a mild elevation of AST at 82. White cell count is 3.3 with a hemoglobin of 12.2. Hematocrit 37. INR is 1.1. Tox screen is positive for opioids, and cannabinoids. Ethyl alcohol is 109.5. The last time she had her hepatitis C RNA levels check was in July 2018. At that time she was 6.45, with RNA 2,830,000. Abdomen pelvis CT has atelectasis is mild at the lung bases. Liver and spleen are normal. Gallbladder unremarkable. Pancreas unremarkable. Kidneys without hydronephrosis. She has multiple loops of "duodenum" within the left upper quadrant. I think this is a typo error and the radiologist means to say multiple loops of small bowel in the left upper quadrant with demonstrate mild prominence and/or fluid-filled with mild wall thickening. Colon is normal in course and caliber. She presented to the emergency room with nausea, left upper quadrant abdominal pain, and feeling lightheaded and dizzy. History - Past Medical History Cardiovascular: reports: Congestive heart failure (Echo June 2018 with normal left ventricle, EF 60%. Moderate LAE. 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 1988.) : reports: None HEENT: reports: Other Psych: reports: Depression, Anxiety Musculoskeletal: reports: Osteoarthritis, Other (Chronic back and hip pain. Overwhelmed with pain and tried to kill herself June 2018 with overdose of insulin) Derm: reports: None MRSA Hx?: No - Past Surgical History /SHEET METAL WORKER HELPER: reports: section - Family & Social History Family History Comment/Other: Mom age 76 of [place]. Had osteoporosis. Dad age 76. of colon cancer. Had diabetes. brother had lymphoma but is alive and healthy. 2 kids are healthy Living arrangement: Homeless (lives in a skilled nursing) Living Situation: Alone Social History Notes: Started smoking at a young age. At most smoked 1 pack/day. For the last 2 years she only smokes 2 cigarettes a day.She is in contact with her children. Is a good relationship and they are stable. Daily alcohol use. 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 04/03/20 Vancomycin [Vancocin] 125 mg PO QID #40 capsule 04/03/20 - Allergies Allergies/Adverse Reactions: Allergies Allergy/AdvReac Type Severity Reaction Status Date / Time Latex, Natural Rubber AdvReac Rash Verified 02/16/21 11:21 NSAIDS (Non-Steroidal AdvReac Unknown Verified 02/16/21 11:21 Anti-Inflamma Review of Systems - Constitutional Constitutional: denies: Fatigue, Fever, Chills, Malaise, Weakness, Poor appetite, Diaphoresis, Night sweats - Eyes Eyes: reports: Vision loss. denies: Irritation, Amaurosis, Blurred vision - Ears, Nose & Throat Ears, Nose & Throat: reports: Hoarseness. denies: Hearing loss, Hearing aids, Tinnitus, Vertigo, Nasal pain, Sore throat - Cardiovascular Cariovascular: reports: Edema, Exertional dyspnea (Chronic and stable. No change for a couple of years). denies: Irregular heart rate, Palpitations, Chest pain, Decr. exercise tolerance - Respiratory Respiratory: reports: Cough (Daily. Productive of clear or yellowish phlegm. No change.), Sputum production, Wheezing, SOB with exertion. denies: Snoring, Hemoptysis, Orthopnea, SOB at rest - Gastrointestinal Gastrointestinal: reports: Abdominal pain (Being this morning. Resolved since going to the bathroom), Diarrhea, Change in bowel habits, Rectal bleeding, Bloody stools, Nausea. denies: Abdominal distention, Constipation, Vomiting, Bile emesis, Perez blood emesis - Genitourinary Genitourinary: reports: Incontinence. denies: Dysuria, Frequency, Urgency, Hematuria, Flank pain, Nocturia - Musculoskeletal Musculoskeletal: reports: Back pain, Stiffness, Joint pain. denies: Muscle pain, Muscle aches - Integumentary Integumentary: denies: Rash, Pruritis, Lesions, Dryness - Neurological Neurological: denies: General weakness, Focal weakness, Headache, Dizziness, Memory problems, Pre-existing deficit, Abnormal gait - Psychiatric Psychiatric: reports: Depression, Anxiety, Other (Since her last suicide attempt, she says that life is stabilized. Is good. She has no desire to commit suicide or plan to commit suicide). denies: Suicidal, Delusions, Hallucinations - Endocrine Endocrine: reports: Intolerance to cold. denies: Polyuria, Polydypsia, Polyphagia - Hematologic/Lymphatic Hematologic/Lymphatic: reports: Anemia (In the past with a previous GI bleed. Her hemoglobin was very low when she needed 3 to 4 units to be transfused). denies: Bruising, Petechiae Prior Level of Functionality: Dependent with activities of daily living. She works full-time. Lives in a skilled nursing. Is able to dress herself and feed herself. Exam - Vital Signs Reviewed Vital Signs: Yes Vital Signs: Vital Signs x48h Temp Pulse Resp BP Pulse Ox 02/16/21 16:00 89 19 113/69 93 02/16/21 15:00 79 16 137/71 H 93 02/16/21 12:28 86 11 L 142/76 H 94 02/16/21 11:24 79 17 137/88 H 94 02/16/21 11:09 36.4 C L 88 16 137/88 H 94 - Physical Exam General Appearance: positive: No acute distress, Alert, Other (65-year-old female who looks stated age, bright purple dyed hair, glasses, comfortable in bed watching TV) Eyes Bilateral: positive: PERRL, EOMI ENT: positive: No signs of dehydration Neck: positive: No JVD. negative: Stiff neck Respiratory: positive: Chest non-tender, Wheezes (On 2 deep breaths. But then they resolved.), Rhonchi (That clear with cough.). negative: Rales Cardiovascular: positive: Regular rate & rhythm. negative: Systolic murmur, Gallop/S4 Abdomen: positive: No organomegaly, Nml bowel sounds, No distention, Tenderness (Bilateral lower quadrants. Mild.), Other (No fluid wave). negative: Guarding, Rebound Skin: positive: Warm, Dry, Other (Appears tanned) Extremities: positive: Non-tender, Full ROM, Nml appearance Neurologic/Psychiatric: positive: Oriented x3, CN's nml (2-12), Motor nml (, No asterixis) Conclusion/Plan - Problem List (1) Blood per rectum Conclusion/Plan: With 4 bowel movements this morning that were bloody, and none since that time. CT scan confirms only small bowel involvement of an enteritis. Differential diagnosis of small bowel ischemia versus infectious diarrhea versus inflammatory bowel disease. Plan: Check C. difficile and stool culture (Salmonella/Shigella/Campylobacter/E. coli). Hydrate. Check CBC every 6 hours Protonix I explained to her that doing a colonoscopy, while recommended because of her age and previous status, is probably not recommended at this time. Her inflammation appears to be in the small bowel and would be difficult to reach that area. (2) Regional enteritis of small bowel Conclusion/Plan: Low possibility of inflammatory bowel disease in this woman. But she did have a previous GI bleed that we never knew what it came from. She does not have varices. She could have alcoholic gastritis but her stomach appears normal on CT. I am pressuring her to make sure that she follows up with someone in the outpatient setting to get work-up. Qualifiers: Digestive disease complication type: with rectal bleeding Qualified Code(s): K50.011 - Crohn's disease of small intestine with rectal bleeding (3) Alcohol abuse Conclusion/Plan: No history of withdrawal, seizures. We will watch her blood pressure and pulse rate. Banana bag. Social Work consult. (4) Pulmonary HTN Conclusion/Plan: This was previously seen on echo. But she gives no history of right-sided heart failure on exam or review of systems. Liver is not engorged, she has no pedal edema. Plan: Recheck echo - Lab Results Lab results reviewed: Yes Fish Bones: 02/16/21 19:21 02/16/21 12:07 - Diagnostic Imaging Results Diagnostic Imaging Results: positive: Final report reviewed - EKG Results EKG Interpreted Independently: No Core Measures - Anticipated LOS I expect patient to be DC'd or transferred within 96 hours.: Yes - DVT/VTE - Prophylaxis VTE/DVT Device ordered at admit?: Yes
--- NOTE | 2021-02-16 17:43 | ED Physician Documentation ---
ED Addendum - Addendum Addendum: 02/16/21 17:43 Patient lost peripheral IV access. I personally placed a 22-gauge long IV in the left external jugular vein after ChloraPrep which flushed and ann marie well.
[2021-02-16] MEDS: SODIUM CHLORIDE FLUSH 0.9% 10 ML SYRINGE IVP SCH (18:31)
[2021-02-16] MEDS: LACTATED RINGERS 1,000 ML IV SCH (18:31)
[2021-02-16 18:58] LABS: B. PARAPERTUSSIS- RESP PCR PAN NOT DETECTED; B. PERTUSSIS- RESP PCR PANEL NOT DETECTED; C. PNEUMONIAE- RESP PCR PANEL NOT DETECTED; CORONAVIRUS 229E-RESP PCR NOT DETECTED; CORONAVIRUS HKU1-RESP PCR NOT DETECTED; CORONAVIRUS NL63-RESP PCR NOT DETECTED; CORONAVIRUS OC43-RESP PCR NOT DETECTED; HUMAN METAPNEUMOVIRUS NOT DETECTED; INFLUENZA A- RESP PCR PANEL NOT DETECTED; INFLUENZA B - RESP PCR PANEL NOT DETECTED; M. PNEUMONIAE- RESP PCR PANEL NOT DETECTED; PARAINFLUENZA VIRUS 1 NOT DETECTED; PARAINFLUENZA VIRUS 2 NOT DETECTED; PARAINFLUENZA VIRUS 3 NOT DETECTED; PARAINFLUENZA VIRUS 4 NOT DETECTED; RHINOVIRUS/ENTEROVIRUS NOT DETECTED; RSV- RESP PCR PANEL NOT DETECTED; SARS-CoV-2 -RESP PCR PANEL NOT DETECTED
[2021-02-16 19:25] LABS: HCT - HEMATOCRIT 35.8 % (37.0-47.0); MEAN CORPUSCULAR HEMOGLOBIN 32.9 pg (27.0-31.0); MEAN CORPUSCULAR HGB CONC 33.5 g/dL (32.0-36.0); MEAN CORPUSCULAR VOLUME 98.1 fL (81.0-99.0); MEAN PLATELET VOLUME 9.9 fL (7.9-10.8); RED BLOOD COUNT 3.65 10^6/uL (4.20-5.40); RED CELL DISTRIBUTION WIDTH 13.6 % (12.0-15.0); WHITE BLOOD COUNT 4.9 x10^3/uL (4.8-10.8)
[2021-02-16 23:24] LABS: HCT - HEMATOCRIT 36.2 % (37.0-47.0); HGB - HEMOGLOBIN 11.6 g/dL (12.0-16.0); MEAN CORPUSCULAR HEMOGLOBIN 32.2 pg (27.0-31.0); MEAN CORPUSCULAR VOLUME 100.6 fL (81.0-99.0); MEAN PLATELET VOLUME 10.3 fL (7.9-10.8); RED BLOOD COUNT 3.6 10^6/uL (4.20-5.40); RED CELL DISTRIBUTION WIDTH 13.6 % (12.0-15.0); WHITE BLOOD COUNT 4.9 x10^3/uL (4.8-10.8)
[2021-02-17] MEDS: SODIUM CHLORIDE FLUSH 0.9% 10 ML SYRINGE IVP SCH (04:50)
[2021-02-17] MEDS: LACTATED RINGERS 1,000 ML IV SCH ×2 (04:50→14:18)
[2021-02-17 06:22] LABS: HCT - HEMATOCRIT 36.4 % (37.0-47.0); HGB - HEMOGLOBIN 11.7 g/dL (12.0-16.0); MEAN CORPUSCULAR HEMOGLOBIN 32.1 pg (27.0-31.0); MEAN CORPUSCULAR HGB CONC 32.1 g/dL (32.0-36.0); MEAN PLATELET VOLUME 10.8 fL (7.9-10.8); RED BLOOD COUNT 3.64 10^6/uL (4.20-5.40); RED CELL DISTRIBUTION WIDTH 13.4 % (12.0-15.0); WHITE BLOOD COUNT 3.2 x10^3/uL (4.8-10.8)
[2021-02-17 06:45] LABS: CALCIUM 8.8 mg/dL (8.5-10.3); CREATININE 0.5 mg/dL (0.4-1.0); POTASSIUM 3.8 mmol/L (3.5-5.0)
[2021-02-17] MEDS ORDERED: PANTOPRAZOLE 40 MG TABLET PO SCH (07:00)
[2021-02-17] MEDS ORDERED: MULTIVITAMIN TABLET PO SCH (08:00)
[2021-02-17] MEDS ORDERED: FOLIC ACID 1 MG TABLET PO SCH (09:00)
[2021-02-17] MEDS ORDERED: MULTIVITAMIN 10 ML, THIAMINE INJ 100 MG, FOLIC ACID INJ 1 MG in D5.45NS W/20 MEQ KCL 1,... IV SCH (09:00)
[2021-02-17] MEDS ORDERED: MULTIVITAMIN 10 ML, THIAMINE INJ 100 MG, FOLIC ACID INJ 1 MG, POTASSIUM CHLORIDE INJ 20... IV SCH ×5 (09:00)
[2021-02-17] MEDS ORDERED: THIAMINE 100 MG TABLET PO SCH (09:00)
--- NOTE | 2021-02-17 10:59 | PHARMACY PROGRESS NOTE ---
- Best Possible Medication History Admit Date and Time: 02/16/21 1711 Processed by: Pharmacy Medication History completed: Yes Patient Interview: Pt interview ONLY source As the person ultimately responsible for medication therapy, providers are able to order a medication from an existing home medication list in [facility] via the "Reconcile Routine" prior to Confirmation of that medication by air support control officer. Such practice is discouraged except when the physician, in their clinical judgment, deems that a medical need exists for a medication without regard to previous use.
[2021-02-17 12:07] VITALS: BP 148/61
--- NOTE | 2021-02-17 12:57 | Discharge Plan ---
Discharge Plan Problem Reviewed?: Yes Disposition: Home, Self Care Condition: Stable Prescriptions: Vancomycin [Vancocin] 125 mg PO QID #56 cap Diet: Regular Activity Restrictions: Activity as Tolerated Shower Restrictions: No Driving Restrictions: No Health Concerns: You presented to our hospital with approximately 4 bloody bowel movements that morning. It was associated with some lower abdominal cramping. Dizziness. Lightheadedness. You already have a previous history of anemia back in 2019 when you came in with black tarry stools and your hemoglobin was 3. Normal amount hemoglobin is 12-13 in a woman. In 2019 your upper endoscopy was negative for ulcers. You were supposed to get a lower endoscopy but have not been able to follow through with that. In April 2020 you also had C. difficile colitis and was treated for that. With this episode, you had one more bowel movement since being in the hospital. It was C. difficile positive. Overnight your hemoglobin has stayed stable. You have had no severe anemia. As such we are sending you home C. difficile and we will send you home with oral vancomycin. Plan of Treatment: 1. Establish yourself with a primary care provider. Make sure you see them in follow-up because they need to check your blood for anemia. 2. Your primary care provider needs to refer you for a colonoscopy. You also need to be seen to find out why your small bowel is so inflamed. Overall, we still do not know why you had severe anemia in 2019 and why you are having bloody stool now. 3. Take oral iron and vitamin C once a day. 4. Take vancomycin since C. difficile did show up in your stool again. I am not quite convinced you have C. difficile colitis again but you are having bloody diarrhea and symptoms. You will take it for 14 days. Again we strongly recommend you see a primary care provider to get follow-up . Care Goals: To find out why you have episodes of anemia, and to take care of that problem so it does not happen again Assessment: Patient understands care goals. She will try to follow through. She laments that her insurance program is very expensive. Social work is working with her to see if she would be a candidate for Medicaid. No Smoking: If you smoke, Please STOP! Call for help.
--- NOTE | 2021-02-17 18:56 | DISCHARGE SUMMARY ---
"Discharge Summary Admit Date: 02/16/21 Discharge Date: 02/17/21 Discharging Provider: Edith Angulo MD Primary Care Provider: AMIRA Smith Code Status: Attempt Resuscitation Condition at Discharge: Stable Discharge Disposition: 01 Home, Self Care - DIAGNOSES Discharge Diagnoses with Status of Each Condition: 1. Bright red blood per rectum 2. Regional enteritis of small bowel 3. C. difficile 4. Alcohol abuse 5. Pulmonary hypertension . - HPI History of Present Illness: Colonoscopy was performed by Dr. Rivas in 2013. That was normal. June 2018 had severe dyspnea, edema of hands and legs with palpitations. Severe fatigue. Found to have a hemoglobin of 3.8. Transfused 4 units. EGD was n ormal. April 2020 walked into the walk-in clinic with bloody diarrhea which was C. difficile positive and treated with vancomycin p.o. She now returns to our emergency room with bright red blood per rectum for bowel movements this morning associated with lower abdominal cramping. She feels tired and shaky. She has not followed up with a colonoscopy since her 2018 admission. She continues to have problems with alcohol abuse. Alcohol level is 109 on admission. Hemoglobin on admission is 12.2 with a white cell count of 3.3. - CONSULTS | PROCEDURES Procedures: 1. Abdomen pelvis CT with prominent fluid filled loops of jejunum within the left upper quadrant with mild wall thickening and findings favoring enteritis. 2. Echocardiogram. Preliminary report. Must be reviewed for final report. Ejection fraction normal at 55 to 60%. No regional wall motion abnormalities. Right ventricle normal in size and function. RVSP at rest is 28 mmHg. As compared to the prior echo, pulmonary arterial systolic pressure has decreased substantially - HOSPITAL COURSE Hospital Course: She was placed in observation for serial hemograms. She did drop her hemoglobin very slightly to 11.7. But otherwise had no further bloody bowel movements. The bowel movement that was present was C. difficile positive. She is treated with oral vancomycin at discharge. Cas[place] stable to go to home. But will need outpatient follow-up for probable follow-up colonoscopy and enteroclysis. At discharge temperature 36.5. Pulse 78. Blood pressure 148/61. Respirations 18. 96% on room air. She is 5 feet 5 inches tall and weighs 72 kg. An alert oriented cheerful lady with dyed purple hair. Lungs are clear. No tachypnea no respiratory distress. A regular rate and rhythm. Denies orthostatic hypotension symptoms. Abdomen is soft, mildly tender in the left upper quadrant with no rebound or guarding. Normal bowel sounds. Eating a regular diet without any problems. She is discharged in stable condition. With instructions: 1. Please establish yourself with a primary care provider so that you can get routine follow-up 2. 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 I described the anatomy to her at length that she understood what we were looking for 3. Recheck to make sure she is completed treatment for C. difficile colitis 4. Get help with stopping drinking - ALLERGIES Allergies/Adverse Reactions: Allergies Allergy/AdvReac Type Severity Reaction Status Date / Time Latex, Natural Rubber AdvReac Rash Verified 02/16/21 11:21 NSAIDS (Non-Steroidal AdvReac Unknown Verified 02/16/21 11:21 Anti-Inflamma - MEDICATIONS Home Medications: Ambulatory Orders Medication Instructions Recorded Confirmed Ferrous Sulfate 325 mg PO DAILY 02/17/21 02/17/21 Multivitamin/Iron/Folic Acid 1 each PO DAILY 02/17/21 02/17/21 [Centrum Women Tablet] Potassium Gluconate 99 mg PO DAILY 02/17/21 02/17/21 Vancomycin [Vancocin] 125 mg PO QID #56 cap 02/17/21 - LABS Result Diagrams: 02/17/21 06:15 02/17/21 06:33"
== END 2021-02-17 14:02 | disposition home or self-care (01) ==
LOC: EDUNIT# → ED 11:08 → MS2 17:13
PROVIDERS: ADMIT Specialist; ATTEND Specialist
DX: A04.71 Enterocolitis due to Clostridium difficile, recurrent (principal); K50.018 Crohn's disease of small intestine with other complication; F10.10 Alcohol abuse, uncomplicated; Y90.5 Blood alcohol level of 100-119 mg/100 ml; I27.20 Pulmonary hypertension, unspecified; R78.4 Finding of other drugs of addictive potential in blood; Z20.822 Contact with and (suspected) exposure to COVID-19; I50.9 Heart failure, unspecified; G89.29 Other chronic pain; M54.9 Dorsalgia, unspecified; M25.559 Pain in unspecified hip; M19.90 Unspecified osteoarthritis, unspecified site; F32.9 Major depressive disorder, single episode, unspecified; F41.9 Anxiety disorder, unspecified; F17.210 Nicotine dependence, cigarettes, uncomplicated; Z59.01 Sheltered homelessness; R32 Unspecified urinary incontinence; H54.7 Unspecified visual loss; Z79.899 Other long term (current) drug therapy; Z91.51 Personal history of suicidal behavior; Z91.19 Patient's noncompliance with other medical treatment and regimen; Z86.19 Personal history of other infectious and parasitic diseases; Z80.0 Family history of malignant neoplasm of digestive organs
CPT/HCPCS: 0202U; 36415; 74177; 80048; 80053; 80306; 80320; 81599; 82270; 83690; 83735; 84484; 85025; 85027; 85610; 86850; 86900; 86901; 87493; 93005; 93306; 96374; 96375; 99284; 99285; A9270; G0378; J7120; Q0162; Q9967; 82272; 82274; 87045; 87046

== ENCOUNTER 2023-12-22 05:34 | Outpatient (CLI) | payer MEDICARE | END 2023-12-22 23:59 | disposition critical access hospital (66) | LOC: EMS 05:34 | DX: R79.89 Other specified abnormal findings of blood chemistry (principal); R53.83 Other fatigue | CPT/HCPCS: A0425; A0429 ==

== ENCOUNTER 2023-12-22 05:54 | Inpatient (IN) | payer BC, MEDICARE ==
--- NOTE | 2023-12-22 06:03 | ED Physician Documentation ---
History of Present Illness - Stated complaint Stated Complaint: CRITICAL LAB - Chief complaint Chief Complaint: General - History obtained from History obtained from: Patient - Additonal information Additional information: BIBA. HPI from patient, EMS. Patient is brought to ED from [facility] where she is on day 5 of treatment for alcoholism/withdrawal. This morning, the facility received a phone call re garding critical results of CBC undertaken yesterday. Specifically, hemoglobin of 4.5. Patient says the blood work was done due to patient c/o fatigue and dyspnea that is distinctly worse with exertion. She denies lightheadedness, shortness of breath. She denies any pain including abdominal pain (with the only exception being chronic left hip pain which is no different than usual for her). She denies BRBPR, black/tarry stool, nausea/vomiting. She has had severe anemia in the past due to GI bleeding although despite upper and lower endoscopies, a source was not found. Review of Systems Constitutional: reports: Fatigue. denies: Fever, Chills, Sweats Cardiac: reports: Reviewed and negative Respiratory: reports: Dyspnea. denies: Cough GI: reports: Reviewed and negative PD PAST MEDICAL HISTORY - Past Medical History Past Medical History: Yes Cardiovascular: Congestive heart failure Respiratory: None Neuro: None Endocrine/Autoimmune: None GI: GI bleed, C.difficile, Hepatitis FORECLOSURE [place]: Other : None HEENT: Other Psych: Depression, Anxiety Musculoskeletal: Osteoarthritis, Other Derm: None - Past Surgical History Past Surgical History: Yes /FORECLOSURE PAR[place]GAL: section - Present Medications Home Medications: Ambulatory Orders Medication Instructions Recorded Confirmed Ferrous Sulfate 325 mg PO DAILY 02/17/21 02/17/21 Multivitamin/Iron/Folic Acid 1 each PO DAILY 02/17/21 02/17/21 [Centrum Women Tablet] Potassium Gluconate 99 mg PO DAILY 02/17/21 02/17/21 Vancomycin [Vancocin] 125 mg PO QID #56 cap 02/17/21 - Allergies Allergies/Adverse Reactions: Allergies Allergy/AdvReac Type Severity Reaction Status Date / Time Latex, Natural Rubber AdvReac Rash Verified 12/22/23 06:01 NSAIDS (Non-Steroidal AdvReac Unknown Verified 12/22/23 06:01 Anti-Inflamma - Social History Does the pt smoke?: Yes Smoking Status: Current every day smoker Does the pt drink ETOH?: Yes Does the pt have substance abuse?: Yes - Immunizations Immunizations are current?: Yes - POLST Patient has POLST: No POLST Status: Full Code PD ED PE NORMAL - Vitals Vital signs reviewed: Yes - General General: Alert and oriented X 3, No acute distress, Well developed/nourished - Neck Neck: Supple, no meningeal sign - Cardiac Cardiac: RRR - Respiratory Respiratory: No respiratory distress, Clear bilaterally - Abdomen Abdomen: Soft, Non tender, Non distended - Neuro Neuro: Alert and oriented X 3 PD ED PE EXPANDED - Cardiac Cardiac: Murmur Present (2/6 SHANNON along LSB greatest at left 2nd ICS) - Derm Derm: Pale Results - Vitals Vitals: Vital Signs - 24 hr 12/22/23 12/22/23 05:59 06:01 Temperature 37.6 C Heart Rate 97 96 Respiratory 18 18 Rate Blood Pressure 128/67 132/69 H O2 Saturation 99 99 Oxygen O2 Source Room air - Labs Labs: Microbiology 12/22/23 06:30 Occult Blood - Final Stool Laboratory Tests 12/22/23 12/22/23 12/22/23 06:05 06:27 06:27 WBC 4.3 L RBC 2.61 L Hgb 3.9 L* Hct 16.8 L* MCV 64.4 L MCH 14.9 L MCHC 23.2 L RDW 21.4 H Plt Count 202 Neut # (Auto) 3.0 Lymph # (Auto) 0.8 L [place] # (Auto) 0.4 Eos # (Auto) 0.1 Baso # (Auto) 0.0 Absolute Nucleated RBC 0.00 Nucleated RBC % 0.0 Manual Slide Review Indicated WBC Morphology NORMAL APPEARANCE Platelet Estimate NORMAL (130-450,000) Platelet Morphology NORMAL APPEARANCE RBC Morph Micro Appear 1+ MICROCYTOSIS PT 13.0 H INR 1.2 Sodium 137 Potassium 4.1 Chloride 107 Carbon Dioxide 24 Anion Gap 6.0 BUN 7 Creatinine 0.5 L Estimated GFR (MDRD) 123 Glucose 107 H Calcium 8.9 Total Bilirubin 0.5 AST 14 ALT 4 L Alkaline Phosphatase 85 Total Protein 7.1 Albumin 3.7 Globulin 3.4 Albumin/Globulin Ratio 1.1 Lipase 27 PD Medical Decision Making - ED course Complexity details: reviewed results, re-evaluated patient, considered differential, d/w patient ED course: On CBC, hemoglobin is now 3.9. Normal INR, normal platelets. She is guaiac negative. She is typed and crossed for 2 units PRBC with order to transfuse. At the end of my shift, blood products are still being prepared and thus care of this patient is turned over to the oncoming ED physician (Dr. Chicas). Departure - Departure Forms: PCP List
[2023-12-22 06:29] LABS: ALBUMIN 3.7 g/dL (3.2-5.5); ALBUMIN/GLOBULIN RATIO 1.1 (1.0-2.2); BILIRUBIN,TOTAL 0.5 mg/dL (0.2-1.0); CALCIUM 8.9 mg/dL (8.5-10.3); CREATININE 0.5 mg/dL (0.6-1.3); POTASSIUM 4.1 mmol/L (3.5-4.5); TOTAL PROTEIN 7.1 g/dL (6.4-8.9)
[2023-12-22 06:41] LABS: BASOPHILS % (AUTO) 0.5 %; EOSINOPHILS # (AUTO) 0.1 10^3/uL (0.0-0.7); EOSINOPHILS % (AUTO) 2.6 %; LYMPHOCYTES # (AUTO) 0.8 10^3/uL (1.5-3.5); LYMPHOCYTES % (AUTO) 18.3 %; MEAN CORPUSCULAR HEMOGLOBIN 14.9 pg (27.0-31.0); MEAN CORPUSCULAR HGB CONC 23.2 g/dL (32.0-36.0); MEAN CORPUSCULAR VOLUME 64.4 fL (81.0-99.0); MONOCYTES # (AUTO) 0.4 10^3/uL (0.0-1.0); MONOCYTES % (AUTO) 8.9 %; NEUTROPHILS % (AUTO) 69.5 %; PLT - PLATELET COUNT 202 10^3/uL (130-450); RED BLOOD COUNT 2.61 10^6/uL (4.20-5.40); RED CELL DISTRIBUTION WIDTH 21.4 % (12.0-15.0); WHITE BLOOD COUNT 4.3 x10^3/uL (4.8-10.8)
[2023-12-22 06:43] LABS: INR 1.2 (0.8-1.2)
[2023-12-22 06:44] LABS: HGB - HEMOGLOBIN 3.9 g/dL (12.0-16.0)
[2023-12-22 06:45] LABS: HCT - HEMATOCRIT 16.8 % (37.0-47.0); SLIDE REVIEW? Indicated
[2023-12-22 07:01] LABS: PLATELET ESTIMATE, MANUAL NORMAL (130-450,000) (NORMAL); PLATELET MORPHOLOGY NORMAL APPEARANCE (NORMAL); WBC MORPHOLOGY (MULTIPLE) NORMAL APPEARANCE (NORMAL)
--- NOTE | 2023-12-22 11:53 | ED Physician Documentation ---
ED Addendum - Addendum Addendum: 12/22/23 11:[address] Durbin at 7 AM shift change pending bed availability. Now a bed on the floor is available and I presented the case to Dr. Roman Carrillo. Disposition placed in observation Condition: Stable Diagnosis: 1. Profound anemia
[2023-12-22] MEDS: ACETAMINOPHEN 500 MG TABLET PO STA (12:15)
[2023-12-22] MEDS ORDERED: iohexoL-300 100 ML VIAL ONE (12:47)
[2023-12-22 13:08] LABS: ABSOLUTE RETICS # AUTO 0.093 10^6/uL (0.020-0.110); RED BLOOD COUNT 2.58 10^6/uL (4.20-5.40); RETICULOCYTE COUNT % (AUTO) 3.6 % (0.5-2.3)
[2023-12-22 13:11] LABS: % IRON SATURATION 2 % (20-50); IRON 13 ug/dL (50-212); TOTAL IRON BINDING CAPACITY 570 ug/dL (250-450); TRANSFERRIN 407 mg/dL (203-362)
[2023-12-22 13:34] LABS: FERRITIN 1.7 ng/mL (11.0-306.8)
[2023-12-22] MEDS: iohexoL-300 100 ML VIAL IVP ONE (13:39)
[2023-12-22] MEDS ORDERED: HYDROXYZINE HCL 50 MG PO PRN (13:52)
[2023-12-22] MEDS: PANTOPRAZOLE 40 MG VIAL IV SCH (14:38)
[2023-12-22] MEDS: GABAPENTIN 300 MG CAPSULE PO SCH (14:38)
[2023-12-22] MEDS ORDERED: SODIUM CHLORIDE FLUSH 0.9% 10 ML SYRINGE IVP PRN ×2 (14:58→15:00)
--- NOTE | 2023-12-22 15:04 | CT Report ---
PROCEDURE: Chest W INDICATIONS: evaluate for lymphadenopathy, malignancy CONTRAST: 100ml [id number] TECHNIQUE: After the administration of intravenous contrast, a CT scan of the chest was performed. Images were recorded and evaluated at appropriate window settings. Reformats: axial MIP of the chest, coronal and sagittal. For radiation dose reduction, the following was used: automated exposure control, adjustme nt of mA and/or kV according to patient size. COMPARISON: CT abdomen pelvis 12/22/2023, 02/16/2021 FINDINGS: Image quality: Diagnostic. Chest wall and lower neck: No thyroid nodule which requires sonographic follow up. No breast mass. No axillary or supraclavicular adenopathy by size. Lungs and pleura: No consolidation. No pleural effusions. No pneumothorax. No suspicious pulmonary n odules which require follow up. Streaky dependent changes are present within the lung bases bilatera lly. Mediastinum: Heart size is mildly prominent. No pericardial effusion. No large vessel abnormality. No mediastinal adenopathy by size criteria. 9 mm periesophageal lymph node series 2 image 86. Several subcentimeter perigastric lymph nodes are present the largest measuring 7 mm in short axis on series 2 image 104. Bones: No aggressive osseous abnormality. Upper Abdomen: Unremarkable. IMPRESSION: Nonspecific subcentimeter periesophageal as well as perigastric lymph nodes. Reviewed by: Yoli Paul MD on 12/22/2023 3:03 PM PDT Approved by: Yoli Paul MD on 12/22/2023 3:03 PM PDT Station ID: [id number]
--- NOTE | 2023-12-22 15:10 | CT Report ---
PROCEDURE: Abdomen/Pelvis W INDICATIONS: severe anemia, r/o lymphadenopathy/malignancy CONTRAST: 100ml [id number] TECHNIQUE: After the administration of intravenous contrast, a CT scan of the abdomen and pelvis was performed. Images were recorded and evaluated at appropriate window settings. Reformats: coronal and sagittal. F or radiation dose reduction, the following was used: automated exposure control, adjustment of mA and /or kV according to patient size. COMPARISON: 02/16/2021, 04/03/2020. FINDINGS: Image quality: Diagnostic. Lower chest: Bibasilar atelectasis. Please see CT chest report dictated separately. Liver: No solid mass. Gallbladder: No radiopaque stones or wall thickening. Biliary tree: No intrahepatic or extrahepatic dilation, accounting for age. Spleen: No splenomegaly. Pancreas: No pancreatic ductal dilation. Adrenals: No adrenal nodule. Kidneys and ureters: No hydronephrosis. No renal cystic lesion which requires follow up. No solid mas s. Stomach, bowel and peritoneum: No gastric or small bowel dilation. No abnormal wall thickening. No pa thologic free fluid. Normal appendix. Lymph nodes: No central or retroperitoneal adenopathy. A few prominent periportal lymph nodes likely reactive in etiology. Vessels: No infrarenal aortic aneurysm. Patent portal vein. Atherosclerosis. PELVIS Reproductive organs: Unremarkable. Bladder: No abnormal wall thickening, accounting for underdistention. Pelvic lymph nodes: No pelvic adenopathy by size criteria. Bones: No aggressive osseous abnormality. No acute compression fractures. Other: No significant ventral or inguinal hernia. IMPRESSION: CT abdomen and pelvis without acute abnormalities. Specifically, no suspicious mass lesions or adenop athy. A few prominent periportal lymph nodes are not significantly changed compared to the prior stud ies and likely reactive in etiology. Reviewed by: Tio Marshall MD on 12/22/2023 3:08 PM PDT Approved by: Tio Marshall MD on 12/22/2023 3:08 PM PDT Station ID: [id number]
--- NOTE | 2023-12-22 15:50 | PHARMACY PROGRESS NOTE ---
- Best Possible Medication History Admit Date and Time: 12/22/23 1231 Processed by: Pharmacy (Medication Reconciliation completed by Tempering Oven Operator, Martina) Medications reviewed in ED?: No Medication History completed: Yes Secondary Source(s): Facility MAR as ONLY source As the person ultimately responsible for medication therapy, providers are able to order a medication from an existing home medication list in [facility] via the "Reconcile Routine" prior to Confirmation of that medication by technical support agent. Such practice is discouraged except when the physician, in their clinical judgment, deems that a medical need exists for a medication without regard to previous use.
--- NOTE | 2023-12-22 16:44 | HISTORY & PHYSICAL EXAMINATION ---
Chief Complaint - Chief Complaint Chief Complaint: Symptomatic Anemia History of Present Illness - Admitted From Admitted From:: Emergency Department - History of Present Illness HPI Comment/Other: This patient is a 68 year old female who has a past medical history of GI bleeding, C.diff, alcohol use, and hepatitis C. The patient came into the emergency department from [facility] where she was on day five of treatment for alcohol withdraw. A CBC done at the facility, due to patient complaints of fatigue and exertional dyspnea, came back with a hemoglobin of 4.5. CBC in the ED was significant for a hemoglobin of 3.9 and a hematocrit of 16.8, along with a pancytopenia. She denies any chest pain, palpitations, dizziness, tremors, visual disturbances, abdominal pain, nausea, or vomiting. She does state some fatigue, shortness of breath with exertion, and chronic pain in her left hip and right knee from previously diagnosed osteoarthritis. She denies any bloody/dark/tarry stool, vaginal bleeding, or any other bleeding. She states that she feels well overall and denies any alcohol withdraw symptoms. Prior to this ED visit, she was planning to be transferred to inpatient treatment for her alcohol use. The patient states that she does take Motrin throughout the day for her osteoarthritis, and she also takes [place] . Prior to detox, she was a daily drinker of about 6-8 drinks/half gallon of wine per day. She has a history of heroin use but quit 20 years ago. She has stable housing and employment. States her diet consists of mostly microwave dinners and she does not eat very much red meat or vegetables. 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 Had osteoporosis. Dad age 76. of colon cancer. Had diabetes. brother had lymphoma but is alive and healthy. 2 kids are healthy Living Situation: Alone Social History Notes: Started smoking at a young age. At most smoked 1 pack/day. For the last 2 years she only smokes 2 cigarettes a day.She is in contact with her children. Is a good relationship and they are stable. Daily alcohol use. 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 [employer] - Substance History Use: Uses substance without health or social issues: Tobacco, Alcohol, Opioid Use Issues: Intoxication Dependence Issues: Intoxication - POLST Patient has POLST: Yes POLST Status: Limited Interventions Meds/Allgy - Home Medications Home Medications: Ambulatory Orders Medication Instructions Recorded Confirmed Dicyclomine [Bentyl] 10 - 20 mg PO Q6H PRN 12/22/23 12/22/23 Gabapentin [Neurontin] 300 mg PO TID 12/22/23 12/22/23 LORazepam [Lorazepam] 1 mg PO Q4HR PRN 12/22/23 Melatonin 10 mg PO QPM PRN 12/22/23 12/22/23 Ondansetron Odt [Zofran Odt] 4 mg SL Q8HR PRN 12/22/23 12/22/23 Promethazine [Phenergan] 12.5 mg PO TID PRN 12/22/23 12/22/23 cloNIDine [Catapres] 1 - 2 tab PO Q4H PRN 12/22/23 12/22/23 hydrOXYzine pamoate [Hydroxyzine 50 mg PO Q6H PRN 12/22/23 12/22/23 Pamoate] methocarbamoL [Methocarbamol] 1,500 mg PO Q6H PRN 12/22/23 12/22/23 traZODone [Desyrel] 50 - 100 mg PO QPM PRN 12/22/23 12/22/23 - Allergies Allergies/Adverse Reactions: Allergies Allergy/AdvReac Type Severity Reaction Status Date / Time Latex, Natural Rubber AdvReac Rash Verified 12/22/23 06:01 NSAIDS (Non-Steroidal AdvReac Unknown Verified 12/22/23 06:01 Anti-Inflamma Review of Systems - Constitutional Constitutional: reports: Fatigue - Respiratory Respiratory: reports: SOB with exertion - Psychiatric Psychiatric: reports: Depression, Anxiety Exam - Vital Signs Reviewed Vital Signs: Yes Vital Signs: Vital Signs x48h Temp Pulse Pulse Pulse Resp BP BP 12/22/23 16:06 36.7 C 79 20 12/22/23 15:11 36.9 C 80 18 08/21/24 14:46 36.7 C 74 20 12/22/23 14:05 36.7 C 77 18 126/68 12/22/23 13:00 78 22 122/61 12/22/23 12:10 37.2 C 80 18 129/64 12/22/23 11:55 37.0 C 89 20 125/69 12/22/23 11:52 37.0 C 86 16 125/69 12/22/23 11:17 79 22 115/72 12/22/23 10:44 36.9 C 80 21 119/65 12/22/23 10:00 79 20 108/65 12/22/23 09:30 83 24 130/65 12/22/23 09:00 82 22 117/70 BP Pulse Ox 12/22/23 16:06 128/64 96 12/22/23 15:11 131/70 H 98 12/22/23 14:46 122/68 94 12/22/23 14:05 96 12/22/23 13:00 92 12/22/23 12:10 97 12/22/23 11:55 98 12/22/23 11:52 97 12/22/23 11:17 94 12/22/23 10:44 92 12/22/23 10:00 94 12/22/23 09:30 96 12/22/23 09:00 97 - Physical Exam General Appearance: positive: No acute distress Eyes Bilateral: positive: Normal inspection ENT: positive: ENT inspection nml Neck: positive: Nml inspection Respiratory: positive: Chest non-tender, No respiratory distress, Breath sounds nml Cardiovascular: positive: Regular rate & rhythm, No murmur, No gallop Peripheral Pulses: positive: 1+ Abdomen: positive: Non-tender, No organomegaly, Nml bowel sounds, No distention Rectal: positive: Stool - heme NEG Back: positive: Nml inspection Skin: positive: Pallor Neurologic/Psychiatric: positive: Oriented x3 (Chronic left hip and right knee pain with movement due to chronic osteoarthritis.) Conclusion/Plan - Problem List (1) Symptomatic anemia Conclusion/Plan: Pt has fatigue and exertional shortness of breath due to anemia. Denies any bleeding. Consult with general surgery for consideration of endoscopic evaluation. Pt iron deficient based on iron studies. Serologic workup in progress. Currently on clear liquids in anticipation of endoscopy.. (2) Pancytopenia Conclusion/Plan: Pt received two units of PRBCs in the ED. Will reevaluate more blood products after repeat H&H this afternoon. (3) History of hepatitis C Conclusion/Plan: Pt has not been treated for her hepatitis C (4) Alcohol use disorder Conclusion/Plan: Pt reports drinking one gallon of wine per day. Pt came to the ED on day five of detox and is not experiencing any withdraw symptoms. (5) Chronic pain Conclusion/Plan: Chronic pain due to osteoarthritis. (6) Osteoarthritis Conclusion/Plan: Chronic osteoarthritis of left hip and right knee. Pt takes motrin daily. (7) Mild protein-calorie malnutrition Conclusion/Plan: Pt states that she eats mostly "tv dinners" and takes in little red meat and vegetables. (8) Pulmonary HTN Conclusion/Plan: History of cardiomyopathy and pulmonary HTN. Repeat echo with this admission. (9) History of intravenous drug abuse Conclusion/Plan: History of IV heroin use. Quit 20 years ago. (10) Cardiomyopathy Conclusion/Plan: Pt has a history of cardiomyopathy with pulmonary hypertension. Last echo was in 2020, will repeat during this admission. - Lab Results Fish Bones: 12/22/23 17:13 12/22/23 06:05
[2023-12-22] MEDS ORDERED: SODIUM CHLORIDE FLUSH 0.9% 10 ML SYRINGE IVP SCH ×2 (17:00)
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
[2023-12-22 17:21] LABS: HCT - HEMATOCRIT 22.7 % (37.0-47.0)
[2023-12-22] MEDS: SODIUM CHLORIDE FLUSH 0.9% 10 ML SYRINGE IVP SCH (19:29)
[2023-12-22] MEDS: DOCUSATE SODIUM 100 MG CAPSULE PO SCH (20:59)
[2023-12-22] MEDS: ACETAMINOPHEN 325 MG TABLET PO PRN (21:06)
[2023-12-22] MEDS: LORazepam 1 MG TABLET PO PRN (22:29)
[2023-12-22] MEDS: SODIUM CHLORIDE FLUSH 0.9% 10 ML SYRINGE IVP PRN (22:35)
[2023-12-23] MEDS: PRENATAL VITAMIN TABLET PO SCH (08:21)
[2023-12-23] MEDS: polyethylene glycoL 3350 17 GM PACKET PO SCH (08:22)
[2023-12-23] MEDS: CYANOCOBALAMIN 500 MCG TABLET PO SCH (08:36)
[2023-12-23 08:37] LABS: BASOPHILS # (AUTO) 0.1 10^3/uL (0.0-0.1); BASOPHILS % (AUTO) 1.3 %; EOSINOPHILS # (AUTO) 0.1 10^3/uL (0.0-0.7); EOSINOPHILS % (AUTO) 1.7 %; HCT - HEMATOCRIT 29.6 % (37.0-47.0); HGB - HEMOGLOBIN 8.4 g/dL (12.0-16.0); LYMPHOCYTES # (AUTO) 0.6 10^3/uL (1.5-3.5); LYMPHOCYTES % (AUTO) 12.8 %; MEAN CORPUSCULAR HEMOGLOBIN 20.8 pg (27.0-31.0); MEAN CORPUSCULAR HGB CONC 28.4 g/dL (32.0-36.0); MEAN CORPUSCULAR VOLUME 73.4 fL (81.0-99.0); MONOCYTES # (AUTO) 0.4 10^3/uL (0.0-1.0); MONOCYTES % (AUTO) 7.7 %; NEUTROPHILS # (AUTO) 3.6 10^3/uL (1.5-6.6); NEUTROPHILS % (AUTO) 76.3 %; PLT - PLATELET COUNT 176 10^3/uL (130-450); RED BLOOD COUNT 4.03 10^6/uL (4.20-5.40); RED CELL DISTRIBUTION WIDTH 26.7 % (12.0-15.0); WHITE BLOOD COUNT 4.7 x10^3/uL (4.8-10.8)
[2023-12-23 08:39] LABS: SLIDE REVIEW? Indicated
[2023-12-23] MEDS: IRON DEXTRAN 1,000 MG in SODIUM CHLORIDE 0.9% 250 ML IV ONE (08:46)
[2023-12-23 08:57] LABS: ALBUMIN 3.5 g/dL (3.2-5.5); CALCIUM 8.8 mg/dL (8.5-10.3); CREATININE 0.5 mg/dL (0.6-1.3); PHOSPHORUS 3.5 mg/dL (2.5-5.0); POTASSIUM 4.1 mmol/L (3.5-4.5)
[2023-12-23] MEDS ORDERED: CYANOCOBALAMIN 500 MCG TABLET PO SCH (09:00)
[2023-12-23] MEDS ORDERED: THIAMINE 100 MG TABLET PO SCH (09:00)
[2023-12-23 09:05] LABS: PLATELET ESTIMATE, MANUAL NORMAL (130-450,000) (NORMAL); WBC MORPHOLOGY (MULTIPLE) NORMAL APPEARANCE (NORMAL)
[2023-12-23 09:06] LABS: PLATELET MORPHOLOGY 1+ LARGE PLATELETS (NORMAL)
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
[2023-12-23 09:33] LABS: SLIDE SENT FOR PATH REVIEW? Indicated
[2023-12-23] MEDS: [UNRECOGNIZED DRUG - OTHER] IV SCH (12:04)
[2023-12-23] MEDS: MULTIVITAMIN IV SCH (12:04)
[2023-12-23] MEDS: THIAMINE IV SCH (12:04)
[2023-12-23] MEDS: POTASSIUM CHLORIDE IV SCH (12:04)
[2023-12-23 12:10] LABS: HCT - HEMATOCRIT 30.5 % (37.0-47.0); HGB - HEMOGLOBIN 8.7 g/dL (12.0-16.0)
[2023-12-23 18:08] LABS: HCT - HEMATOCRIT 31.6 % (37.0-47.0); HGB - HEMOGLOBIN 8.9 g/dL (12.0-16.0)
[2023-12-23] MEDS: hydrOXYzine PAMOATE 25 MG CAPSULE PO PRN (21:38)
[2023-12-24 02:35] LABS: HCT - HEMATOCRIT 34.6 % (37.0-47.0); HGB - HEMOGLOBIN 9.7 g/dL (12.0-16.0)
[2023-12-24 06:00] LABS: BASOPHILS # (AUTO) 0.1 10^3/uL (0.0-0.1); BASOPHILS % (AUTO) 1.6 %; EOSINOPHILS # (AUTO) 0.1 10^3/uL (0.0-0.7); EOSINOPHILS % (AUTO) 2.7 %; HCT - HEMATOCRIT 31.5 % (37.0-47.0); LYMPHOCYTES # (AUTO) 0.7 10^3/uL (1.5-3.5); LYMPHOCYTES % (AUTO) 15.6 %; MEAN CORPUSCULAR HEMOGLOBIN 21.1 pg (27.0-31.0); MEAN CORPUSCULAR HGB CONC 28.6 g/dL (32.0-36.0); MEAN CORPUSCULAR VOLUME 73.9 fL (81.0-99.0); MONOCYTES # (AUTO) 0.5 10^3/uL (0.0-1.0); MONOCYTES % (AUTO) 11.3 %; NEUTROPHILS % (AUTO) 68.1 %; NRBC ABSOLUTE COUNT (AUTO) 0.03 x10^3/uL; NUCLEATED RED BLOOD CELLS AUTO 0.7 /100WBC; PLT - PLATELET COUNT 188 10^3/uL (130-450); RED BLOOD COUNT 4.26 10^6/uL (4.20-5.40); RED CELL DISTRIBUTION WIDTH 27.3 % (12.0-15.0); WHITE BLOOD COUNT 4.4 x10^3/uL (4.8-10.8)
[2023-12-24 06:07] LABS: ALBUMIN 3.6 g/dL (3.2-5.5); CALCIUM 9.2 mg/dL (8.5-10.3); CREATININE 0.5 mg/dL (0.6-1.3); MAGNESIUM 1.8 mg/dL (1.7-2.3); PHOSPHORUS 3.5 mg/dL (2.5-5.0)
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
[2023-12-24] MEDS: NICOTINE 21 MG PATCH TOP SCH (10:54)
--- NOTE | 2023-12-24 13:13 | XRAY Report ---
PROCEDURE: Knee 4+V RT INDICATIONS: pain TECHNIQUE: 4 views of the knee(s) were acquired. COMPARISON: None. FINDINGS: Bones: No fractures or dislocations. No suspicious bony lesions. Moderate tricompartmental arthri tic change most severe medially. Prominent paratracheal or osteophytes are present. No distinct erosi ons. Soft tissues: Mild knee joint effusion. No suspicious soft tissue calcifications or masses. IMPRESSION: No acute bony abnormality. Reviewed by: Yoli Paul MD on 12/24/2023 1:11 PM PDT Approved by: Yoli Paul MD on 12/24/2023 1:11 PM PDT Station ID: [id number]
--- NOTE | 2023-12-24 13:24 | XRAY Report ---
PROCEDURE: Hips w/Pelvis 3-4V BL INDICATIONS: pain TECHNIQUE: 2 views of the right and left hips were obtained COMPARISON: 01/08/2016 FINDINGS: Severe left hip joint space and narrowing with subchondral sclerosis and cysts associated with flatte marycarmen of the femoral head marginal osteophytes at. Moderate right hip joint space narrowing with sherice nal osteophyte. Femoral head contour is maintained. Degenerative changes noted lower lumbar spine. IMPRESSION: Severe left hip osteoarthritis with flattening of the femoral head. Moderate right hip osteoarthritis Reviewed by: Kartik Rene MD on 12/24/2023 12:23 PM AKKO Approved by: Kartik Rene MD on 12/24/2023 12:23 PM AKDT Station ID: [id number]
[2023-12-24] MEDS: PANTOPRAZOLE 40 MG TABLET PO SCH (20:50)
[2023-12-25 05:26] LABS: BASOPHILS # (AUTO) 0.1 10^3/uL (0.0-0.1); BASOPHILS % (AUTO) 1.8 %; EOSINOPHILS # (AUTO) 0.2 10^3/uL (0.0-0.7); HCT - HEMATOCRIT 32.2 % (37.0-47.0); HGB - HEMOGLOBIN 9.1 g/dL (12.0-16.0); LYMPHOCYTES % (AUTO) 19.6 %; MEAN CORPUSCULAR HEMOGLOBIN 21.1 pg (27.0-31.0); MEAN CORPUSCULAR HGB CONC 28.3 g/dL (32.0-36.0); MEAN CORPUSCULAR VOLUME 74.5 fL (81.0-99.0); MONOCYTES # (AUTO) 0.6 10^3/uL (0.0-1.0); MONOCYTES % (AUTO) 11.4 %; NEUTROPHILS # (AUTO) 3.2 10^3/uL (1.5-6.6); NEUTROPHILS % (AUTO) 63.4 %; NRBC ABSOLUTE COUNT (AUTO) 0.02 x10^3/uL; NUCLEATED RED BLOOD CELLS AUTO 0.4 /100WBC; PLT - PLATELET COUNT 199 10^3/uL (130-450); RED BLOOD COUNT 4.32 10^6/uL (4.20-5.40); RED CELL DISTRIBUTION WIDTH 28.4 % (12.0-15.0)
[2023-12-25 05:37] LABS: SLIDE REVIEW? Indicated
[2023-12-25 05:54] LABS: ALBUMIN 3.7 g/dL (3.2-5.5); CALCIUM 9.4 mg/dL (8.5-10.3); CREATININE 0.5 mg/dL (0.6-1.3); MAGNESIUM 1.9 mg/dL (1.7-2.3); PHOSPHORUS 3.8 mg/dL (2.5-5.0); POTASSIUM 3.9 mmol/L (3.5-4.5)
[2023-12-25 06:29] LABS: PLATELET ESTIMATE, MANUAL NORMAL (130-450,000) (NORMAL); PLATELET MORPHOLOGY NORMAL APPEARANCE (NORMAL)
[2023-12-25] MEDS: FERROUS SULFATE 325 MG TABLET PO SCH (08:26)
--- NOTE | 2023-12-25 09:06 | PROVIDER PROGRESS NOTE ---
Subjective - Prog Note Date Prog Note Date: 12/25/23 Prog Note Time: 09:05 - Subjective Pt reports feeling: Improved Subjective: The patient is doing well this morning. She is waiting for psych placement. She complains of some left hip pain 7 out of 10 this morning. Otherwise states that she is feeling stronger and less short of breath. No fever or chills. No chest pain or heart palpitations. No nausea vomiting or diarrhea. No urinary complaints Current Medications - Current Medications Current Medications: Active Medications Generic Name Dose Route Start Last Admin Trade Name Freq PRN Reason Stop Dose Admin Acetaminophen 1,000 mg 12/25/23 09:00 Acetaminophen 325 Mg Tablet PO Q6H PIERRE Cyanocobalamin 1,000 mcg 12/23/23 09:00 12/25/23 08:26 Cyanocobalamin 500 Mcg Tablet PO 1,000 mcg DAILY PIERRE Administration Docusate Sodium 100 mg 12/22/23 21:00 12/25/23 08:26 Docusate Sodium 100 Mg Capsule PO 100 mg BID PIERRE Administration Ferrous Sulfate 325 mg 12/25/23 08:00 12/25/23 08:26 Ferrous Sulfate 325 Mg Tablet PO 325 mg BIDWM PIERRE Administration Hydroxyzine Pamoate 50 mg 12/22/23 14:03 12/23/23 21:38 Hydroxyzine Pamoate 25 Mg Capsule PO 50 mg Q6H PRN Administration ANXIETY Lidocaine 1 patch 12/25/23 09:00 Lidocaine Patch 4% TOP DAILY PIERRE Lorazepam 1 mg 12/22/23 13:52 12/22/23 22:29 Lorazepam 1 Mg Tablet PO 1 mg Q4HR PRN Administration Agitation Nicotine 1 patch 12/24/23 10:00 12/24/23 10:54 Nicotine 21 Mg Patch TOP 1 patch DAILY PIERRE Administration Pantoprazole Sodium 40 mg 12/24/23 21:00 12/25/23 08:26 Pantoprazole 40 Mg Tablet PO 40 mg BID PIERRE Administration Polyethylene Glycol 17 gm 12/23/23 09:00 12/25/23 08:27 Polyethylene Glycol 3350 17 Gm Packet PO Not Given DAILY PIERRE Multivit/Folic Acid/Iron 1 tab 12/23/23 08:00 12/25/23 08:26 Vitamin Tablet PO 1 tab DAILYWM PIERRE Administration Sodium Chloride 10 ml 12/22/23 12:31 12/22/23 22:35 Sodium Chloride Flush 0.9% 10 Ml Syringe IVP 10 ml PRN PRN Administration NEEDED PER PROVIDER ORDERS Sodium Chloride 10 ml 12/22/23 17:00 12/25/23 08:27 Sodium Chloride Flush 0.9% 10 Ml Syringe IVP Not Given 0100,0900,1700 PIERRE Dicyclomine [Bentyl] 10 - 20 mg PO Q6H PRN 12/22/23 Gabapentin [Neurontin] 300 mg PO TID 12/22/23 LORazepam [Lorazepam] 1 mg PO Q4HR PRN 12/22/23 Melatonin 10 mg PO QPM PRN 12/22/23 Ondansetron Odt [Zofran Odt] 4 mg SL Q8HR PRN 12/22/23 Promethazine [Phenergan] 12.5 mg PO TID PRN 12/22/23 cloNIDine [Catapres] 1 - 2 tab PO Q4H PRN 12/22/23 hydrOXYzine pamoate [Hydroxyzine Pamoate] 50 mg PO Q6H PRN 12/22/23 methocarbamoL [Methocarbamol] 1,500 mg PO Q6H PRN 12/22/23 traZODone [Desyrel] 50 - 100 mg PO QPM PRN 12/22/23 Objective - Vital Signs/Intake & Output Reviewed Vital Signs: Yes Vital Signs: Vital Signs x48h Temp Pulse Resp BP Pulse Ox 12/25/23 07:47 36.8 C 62 16 140/59 H 96 12/25/23 01:47 36.5 C 60 16 138/72 H 98 Intake & Output: Intake & Output 12/22/23 12/23/23 12/24/23 12/25/23 23:59 23:59 23:59 23:59 Intake Total 1220 2200 2429.2 760 Balance 1220 2200 2429.2 760 - Objective General Appearance: positive: No acute distress Eyes Bilateral: positive: Normal inspection ENT: positive: ENT inspection nml Neck: positive: Nml inspection Respiratory: positive: Chest non-tender, No respiratory distress, Breath sounds nml Cardiovascular: positive: Regular rate & rhythm, No murmur, No gallop. negative: Friction rub Abdomen: positive: Non-tender, No organomegaly, Nml bowel sounds, No distention Skin: positive: Color nml, No rash, Warm, Dry Extremities: positive: Nml appearance, Other (The patient complains of left hip pain. She has pain when trying to rotate her hip or bear weight on it.) Neurologic/Psychiatric: positive: Oriented x3, CN's nml (2-12), Other (Somewhat anxiuos and depressed) - Lab Results Fish Bones: 12/25/23 05:01 12/25/23 05:01 Other Labs: Lab Results x24hrs 12/25/23 12/25/23 Range/Units 05:01 05:01 WBC 5.0 (4.8-10.8) x10^3/uL RBC 4.32 (4.20-5.40) 10^6/uL Hgb 9.1 L (12.0-16.0) g/dL Hct 32.2 L (37.0-47.0) % MCV 74.5 L (81.0-99.0) fL MCH 21.1 L (27.0-31.0) pg MCHC 28.3 L (32.0-36.0) g/dL RDW 28.4 H (12.0-15.0) % Plt Count 199 (130-450) 10^3/uL Neut # (Auto) 3.2 (1.5-6.6) 10^3/uL Lymph # (Auto) 1.0 L (1.5-3.5) 10^3/uL [place] # (Auto) 0.6 (0.0-1.0) 10^3/uL Eos # (Auto) 0.2 (0.0-0.7) 10^3/uL Baso # (Auto) 0.1 (0.0-0.1) 10^3/uL Absolute Nucleated RBC 0.02 x10^3/uL Nucleated RBC % 0.4 /100WBC Manual Slide Review Indicated Platelet Estimate NORMAL (130-450,000) (NORMAL) Platelet Morphology NORMAL APPEARANCE (NORMAL) Sodium 136 (135-145) mmol/L Potassium 3.9 (3.5-4.5) mmol/L Chloride 106 (101-111) mmol/L Carbon Dioxide 23 (21-32) mmol/L Anion Gap 7.0 (6-13) BUN 6 (6-20) mg/dL Creatinine 0.5 L (0.6-1.3) mg/dL Estimated GFR (MDRD) 123 (>89) Glucose 89 (74-104) mg/dL Calcium 9.4 (8.5-10.3) mg/dL Phosphorus 3.8 (2.5-5.0) mg/dL Magnesium 1.9 (1.7-2.3) mg/dL Albumin 3.7 (3.2-5.5) g/dL
[2023-12-25] MEDS: LIDOCAINE PATCH 4% TOP SCH (09:48)
[2023-12-25] MEDS: ACETAMINOPHEN 325 MG TABLET PO SCH (09:50)
--- NOTE | 2023-12-25 14:39 | MISCELLANEOUS PROVIDER NOTE ---
Miscellaneous Provider Note - - Note: We were consulted for evaluation and possible treatment of anemia. Considering the patient's history, the anemia was certainly due to NSAID induced gastropathy. This has been treated quickly and appropriately. Patient has multiple other comorbidities and more pressing medical and psychosocial issues. As it has been 10 years since her last colonoscopy and considering that an EGD should be performed to ensure healing I am linda to suggest that the patient have an EGD and colonoscopy (at the same time) as an outpatient once some of the aforementioned issues have been addressed. We certainly appreciate the opportunity to be involved in her care. Please call us with any additional surgical questions and/or concerns.
[2023-12-26 05:49] LABS: BASOPHILS # (AUTO) 0.1 10^3/uL (0.0-0.1); BASOPHILS % (AUTO) 2.2 %; EOSINOPHILS # (AUTO) 0.2 10^3/uL (0.0-0.7); EOSINOPHILS % (AUTO) 4.5 %; HCT - HEMATOCRIT 35.6 % (37.0-47.0); HGB - HEMOGLOBIN 9.6 g/dL (12.0-16.0); LYMPHOCYTES # (AUTO) 0.9 10^3/uL (1.5-3.5); LYMPHOCYTES % (AUTO) 21.1 %; MEAN CORPUSCULAR HEMOGLOBIN 20.8 pg (27.0-31.0); MEAN CORPUSCULAR VOLUME 77.2 fL (81.0-99.0); MONOCYTES # (AUTO) 0.6 10^3/uL (0.0-1.0); MONOCYTES % (AUTO) 12.3 %; NEUTROPHILS # (AUTO) 2.7 10^3/uL (1.5-6.6); NEUTROPHILS % (AUTO) 59.5 %; NRBC ABSOLUTE COUNT (AUTO) 0.02 x10^3/uL; NUCLEATED RED BLOOD CELLS AUTO 0.4 /100WBC; PLT - PLATELET COUNT 104 10^3/uL (130-450); RED BLOOD COUNT 4.61 10^6/uL (4.20-5.40); RED CELL DISTRIBUTION WIDTH 29.3 % (12.0-15.0); WHITE BLOOD COUNT 4.5 x10^3/uL (4.8-10.8)
[2023-12-26 05:59] LABS: ALBUMIN 3.8 g/dL (3.2-5.5); CALCIUM 9.5 mg/dL (8.5-10.3); CREATININE 0.5 mg/dL (0.6-1.3); MAGNESIUM 1.8 mg/dL (1.7-2.3); PHOSPHORUS 4.4 mg/dL (2.5-5.0); POTASSIUM 4.2 mmol/L (3.5-4.5)
[2023-12-26 06:26] LABS: DIFFERENTIAL COMMENT MANUAL=AUTO DIFF; PLATELET ESTIMATE, MANUAL NORMAL (130-450,000) (NORMAL); PLATELET MORPHOLOGY RARE GIANT PLATELETS (NORMAL); RBC MORPHOLOGY (MULTIPLE) 2+ ANISOC (NORMAL)
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
[2023-12-26] MEDS: ACETAMINOPHEN 325 MG TABLET PO PRN (16:09)
[2023-12-27 05:29] LABS: BASOPHILS # (AUTO) 0.1 10^3/uL (0.0-0.1); EOSINOPHILS # (AUTO) 0.2 10^3/uL (0.0-0.7); EOSINOPHILS % (AUTO) 4.4 %; HCT - HEMATOCRIT 34.5 % (37.0-47.0); HGB - HEMOGLOBIN 9.3 g/dL (12.0-16.0); LYMPHOCYTES # (AUTO) 0.9 10^3/uL (1.5-3.5); LYMPHOCYTES % (AUTO) 21.8 %; MEAN CORPUSCULAR HEMOGLOBIN 20.7 pg (27.0-31.0); MEAN CORPUSCULAR VOLUME 76.7 fL (81.0-99.0); MONOCYTES # (AUTO) 0.6 10^3/uL (0.0-1.0); MONOCYTES % (AUTO) 14.7 %; NEUTROPHILS # (AUTO) 2.3 10^3/uL (1.5-6.6); NEUTROPHILS % (AUTO) 56.9 %; PLT - PLATELET COUNT 208 10^3/uL (130-450); RED CELL DISTRIBUTION WIDTH 30.3 % (12.0-15.0); WHITE BLOOD COUNT 4.1 x10^3/uL (4.8-10.8)
[2023-12-27 05:30] LABS: SLIDE REVIEW? Indicated
[2023-12-27 05:45] LABS: ALBUMIN 3.8 g/dL (3.2-5.5); CALCIUM 9.6 mg/dL (8.5-10.3); CREATININE 0.5 mg/dL (0.6-1.3); MAGNESIUM 1.7 mg/dL (1.7-2.3); PHOSPHORUS 4.4 mg/dL (2.5-5.0); POTASSIUM 4.2 mmol/L (3.5-4.5)
[2023-12-27 05:49] LABS: PLATELET ESTIMATE, MANUAL NORMAL (130-450,000) (NORMAL); PLATELET MORPHOLOGY NORMAL APPEARANCE (NORMAL)
[2023-12-27 05:50] LABS: WBC MORPHOLOGY (MULTIPLE) NORMAL APPEARANCE (NORMAL)
[2023-12-27] MEDS ORDERED: TRIAMCINOLONE 40 MG/ML VIAL IM ONE (08:06)
[2023-12-27] MEDS ORDERED: LIDOCAINE 2% 10 ML MDV SUBQ ONE (08:09)
[2023-12-27] MEDS ORDERED: LIDOCAINE-MPF 2% 5 ML VIAL SUBQ ONE (09:00)
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
[2023-12-27] MEDS ORDERED: LIDOCAINE-MPF 2% 5 ML VIAL ONE (13:12)
--- NOTE | 2023-12-27 15:35 | Discharge Plan ---
Discharge Plan Problem Reviewed?: Yes Disposition: Home, Self Care Prescriptions: Ferrous Sulfate [Feosol] 325 mg PO BIDWM #180 tab Pantoprazole [Protonix] 40 mg PO BID #60 tab Acetaminophen [Tylenol] 975 mg PO Q6H PRN #90 tab PRN Reason: Moderate Pain (Level 4-6) Cyanocobalamin [Vitamin B-12] 1,000 mcg PO DAILY #90 tab Diet: Regular Activity Restrictions: Additional Comments (try to limit walking distances for the next 3-5 days) Shower Restrictions: No Driving Restrictions: No Assistance Devices: Walker Weight Bearing: Full Weight Plan of Treatment: Tylenol comes in 3 different strengths [id number]: 325 mg, 500 mg, and 650 mg. I would recommend that you take 2-3 of the 325 mg tablets up to 4 times a day. Do not exceed more than 12 tablets of the 325 mg in 24 hours. Avoid all nonsteroidal anti-inflammatory drugs. Examples of these are ibuprofen, Advil, Aleve, Naprosyn. Tylenol is the only [id number] pain reliever that you should take. Remember to reach out to resources in the community should you start to feel alone or anxious. Good luck with your move down to [place]. Please seek out primary care as soon as possible. The injection in your hip today may feel better immediately but it also may take a period of days to work. If the injection was going to work it should be worki ng by Wednesday. Additional Instructions or Follow Up instructions: seek out primary care in [place] as soon as possible. No Smoking: If you smoke, Please STOP! Call for help.
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
[2023-12-27 15:49] VITALS: BP 143/73; O2SAT 96
[2023-12-31 08:13] LABS: PATHOLOGIST SLIDE COMMENTS SEE SEPARATE REPORT
== END 2023-12-27 15:50 | disposition home or self-care (01) | DRG 812 ==
LOC: EDBD → EDUNIT# → ED 05:54 → MS2 12:31 → ED 14:06 → OBSVTOIN 14:58
PROVIDERS: ADMIT Physician Assistant; ATTEND Physician Assistant Medical
DX: D64.9 Anemia, unspecified (principal); D62 Acute posthemorrhagic anemia; R45.851 Suicidal ideations; I42.9 Cardiomyopathy, unspecified; E44.1 Mild protein-calorie malnutrition; T39.395A Adverse effect of other nonsteroidal anti-inflammatory drugs [NSAID], initial encounter; D61.818 Other pancytopenia; Y92.009 Unspecified place in unspecified non-institutional (private) residence as the place of occurrence of the external cause; B19.20 Unspecified viral hepatitis C without hepatic coma; G89.29 Other chronic pain; M16.12 Unilateral primary osteoarthritis, left hip; M17.11 Unilateral primary osteoarthritis, right knee; F11.11 Opioid abuse, in remission; I27.20 Pulmonary hypertension, unspecified; Z68.27 Body mass index [BMI] 27.0-27.9, adult; F11.21 Opioid dependence, in remission; E61.1 Iron deficiency; F10.20 Alcohol dependence, uncomplicated; I50.9 Heart failure, unspecified; F32.A Depression, unspecified; F41.9 Anxiety disorder, unspecified; F17.210 Nicotine dependence, cigarettes, uncomplicated; Z91.410 Personal history of adult physical and sexual abuse
CPT/HCPCS: 36415; 36430; 71260; 73522; 73564; 74177; 80053; 80069; 82272; 82607; 82728; 82746; 83010; 83540; 83615; 83690; 83735; 84466; 85014; 85018; 85025; 85045; 85610; 86850; 86900; 86901; 86920; 87635; 93307; 97161; 99284; 99285; A9270; G0378; J1750; J3411; P9016; Q9967

== ENCOUNTER 2024-01-14 09:45 | Outpatient (CLI) | payer MEDICARE | END 2024-01-14 23:59 | disposition critical access hospital (66) | LOC: EMS 09:45 | DX: R53.81 Other malaise (principal); D64.9 Anemia, unspecified | CPT/HCPCS: A0425; A0429 ==

== ENCOUNTER 2024-01-14 10:08 | Emergency (ER) | payer MEDICARE ==
--- NOTE | 2024-01-14 10:32 | ED Physician Documentation ---
History of Present Illness - Stated complaint Stated Complaint: HEMO LOW - Chief complaint Chief Complaint: General - Additonal information Additional information: 68-year-old female presents to the emergency department with chief complaint generalized weakness and abnormal lab value. Comes from local area detox facility where she was found to have a hemoglobin of 4.1 from labs drawn yesterday. Recent hospitalization December 2023 at this facility for acute blood loss anemia requiring 4 units PRBCs. At that time it was presumed GI blood loss from excessive NSAID use as well as a history of alcohol abuse disorder. Patient's hemoglobin had stabilized and she was discharged for plan for outpatient upper and lower endoscopy. She reports that she has been feeling tired and fatigued with physical activity x 1 day. Reports some dark stools. Also endorses for occasional epigastric abdominal pain. Denies bright or dark red blood per rectum. Denies use of blood thinning medications. States has been abstinent of alcohol since starting her rehabilitation process and has discontinued her use of nonsteroidal anti- inflammatory medications. Reports has been several years since her last colonoscopy. Review of Systems Constitutional: reports: Fatigue Eyes: denies: Loss of vision Ears: denies: Loss of hearing Nose: denies: Rhinorrhea / runny nose Throat: denies: Dental pain / toothache Cardiac: denies: Chest pain / pressure Respiratory: denies: Dyspnea GI: reports: Abdominal Pain. denies: Nausea, Vomiting, Constipation, Diarrhea : denies: Dysuria Skin: denies: Rash Musculoskeletal: denies: Neck pain Neurologic: denies: Generalized weakness Psychiatric: denies: Depressed Endocrine: denies: Polydypsia PD PAST MEDICAL HISTORY - Past Medical History Cardiovascular: Congestive heart failure Respiratory: None Neuro: None Endocrine/Autoimmune: None GI: GI bleed, C.difficile, Hepatitis CATALOGUE LIBRARIAN: Other : None HEENT: Other Psych: Depression, Anxiety Musculoskeletal: Osteoarthritis, Other Derm: None - Past Surgical History Past Surgical History: Yes /CATALOGUE LIBRARIAN: section - Present Medications Home Medications: Ambulatory Orders Medication Instructions Recorded Confirmed Dicyclomine [Bentyl] 10 - 20 mg PO Q6H PRN 12/22/23 01/14/24 Gabapentin [Neurontin] 300 mg PO TID 12/22/23 01/14/24 Melatonin 10 mg PO QPM PRN 12/22/23 01/14/24 Ondansetron Odt [Zofran Odt] 4 mg SL Q8HR PRN 12/22/23 01/14/24 cloNIDine [Catapres] 1 - 2 tab PO Q4H PRN 12/22/23 01/14/24 hydrOXYzine pamoate [Hydroxyzine 50 mg PO Q6H PRN 12/22/23 01/14/24 Pamoate] methocarbamoL [Methocarbamol] 1,500 mg PO Q6H PRN 12/22/23 01/14/24 traZODone [Desyrel] 50 - 100 mg PO QPM PRN 12/22/23 01/14/24 Ferrous Sulfate [Feosol] 325 mg PO BIDWM #180 tab 12/27/23 01/14/24 Pantoprazole [Protonix] 40 mg PO BID #60 tab 12/27/23 01/14/24 Acetaminophen [Tylenol] 1,000 mg PO Q6H PRN 01/14/24 01/14/24 LORazepam [Ativan] 1 mg PO BID 01/14/24 01/14/24 Multivitamin 1 each PO DAILY 01/14/24 01/14/24 Vit B Comp/Folic/Choline/Inosi 1 each PO DAILY 01/14/24 01/14/24 [Super B-50 Complex Capsule] - Allergies Allergies/Adverse Reactions: Allergies Allergy/AdvReac Type Severity Reaction Status Date / Time Latex, Natural Rubber AdvReac Rash Verified 01/14/24 10:19 NSAIDS (Non-Steroidal AdvReac Unknown Verified 01/14/24 10:19 Anti-Inflamma - Social History Does the pt smoke?: Yes Smoking Status: Current every day smoker Does the pt drink ETOH?: Yes ETOH Use: Liquor Does the pt have substance abuse?: Yes - Immunizations Immunizations are current?: Yes - POLST Patient has POLST: Yes POLST Status: Limited Interventions PD ED PE NORMAL - Vitals Vital signs reviewed: Yes - General General: Alert and oriented X 3, No acute distress, Well developed/nourished, Other - HEENT HEENT: Atraumatic, PERRL, EOMI, Ears normal, Moist mucous membranes, Pharynx benign - Neck Neck: Supple, no meningeal sign - Cardiac Cardiac: RRR, No gallop, Strong equal pulses - Respiratory Respiratory: No respiratory distress, Clear bilaterally - Abdomen Abdomen: Normal bowel sounds - Female Female : Deferred - Rectal Rectal: Other (Performed with compounder flavorings present. Darker brown-black stool, well-formed.) - Back Back: No CVA TTP, No spinal TTP - Derm Derm: Normal color - Extremities Extremities: No deformity Results - Vitals Vitals: Vital Signs - 24 hr 01/14/24 01/14/24 10:12 12:00 Temperature 36.6 C Heart Rate 82 64 Respiratory 18 18 Rate Blood Pressure 133/76 H 133/61 H O2 Saturation 96 93 Oxygen O2 Source Room air - EKG (time done) 1033 EKG releavant findings:: EKG personally interpreted by author of this note. Relevant findings are: Sinus rhythm with rate 75 bpm. Normal axis. Shortened [place] interval at 109 ms. Normal QRS and QTc intervals. No ST segment elevations. No delta waves noted. - Labs Labs: Microbiology 01/14/24 12:34 Occult Blood - Final Stool Laboratory Tests 01/14/24 01/14/24 01/14/24 10:37 10:37 10:37 WBC 4.4 L RBC 4.40 Hgb 11.4 L Hct 38.8 MCV 88.2 MCH 25.9 L MCHC 29.4 L Plt Count 175 MPV 9.8 Neut # (Auto) 3.1 Lymph # (Auto) 0.7 L [place] # (Auto) 0.4 Eos # (Auto) 0.1 Baso # (Auto) 0.1 Absolute Nucleated RBC 0.00 Nucleated RBC % 0.0 Manual Slide Review Indicated RBC Morph Micro Appear DIMORPHIC RBCS PT 11.6 INR 1.1 Sodium 137 Potassium 4.2 Chloride 103 Carbon Dioxide 29 Anion Gap 5.0 L BUN 7 Creatinine 0.5 L Estimated GFR (MDRD) 123 Glucose 80 Lactic Acid Calcium 9.3 Total Bilirubin 0.4 AST 18 ALT 14 Alkaline Phosphatase 87 Troponin I High Sens Total Protein 6.7 Albumin 3.8 Globulin 2.9 Albumin/Globulin Ratio 1.3 Lipase 27 Blood Type Antibody Screen 01/14/24 01/14/24 01/14/24 10:37 10:37 10:37 WBC RBC Hgb Hct MCV MCH MCHC Plt Count MPV Neut # (Auto) Lymph # (Auto) [place] # (Auto) Eos # (Auto) Baso # (Auto) Absolute Nucleated RBC Nucleated RBC % Manual Slide Review RBC Morph Micro Appear PT INR Sodium Potassium Chloride Carbon Dioxide Anion Gap BUN Creatinine Estimated GFR (MDRD) Glucose Lactic Acid 1.1 Calcium Total Bilirubin AST ALT Alkaline Phosphatase Troponin I High Sens 3.3 Total Protein Albumin Globulin Albumin/Globulin Ratio Lipase Blood Type O POSITIVE Antibody Screen NEGATIVE PD Medical Decision Making - ED course ED course: 68-year-old female with past medical significant for alcohol abuse disorder, regular NSAID use presents to the emergency department with report of low hemoglobin. Was contacted by her detox facility and stated that they did labs and found that her hemoglobin was 4.1. She did endorse for 1 day history of fatigue as well as some darker stools. Was recently hospitalized requiring multiple blood transfusions for what was presumed to be upper GI bleeding. She is afebrile, hematin stable arrival to the emergency department. She has a benign abdominal exam. Her rectal exam demonstrates well-formed but somewhat dark stools. All of her tests in the emergency department today are very reassuring. She has an improved hemoglobin from time of discharge in the emergency department. There is no signs of blood in her stool. Her CT angio of her abdomen and pelvis are negative for signs of active bleeding. There is an incidental finding of an enlarged spleen which is communicated direct with the patient as well as the importance of follow-up with primary care. At this time I do not identify any reason for hospitalization or transfer. The patient will benefit from continued follow-up with gastroenterology on an outpatient basis for upper lower endoscopy. Discussed return precautions and follow-up instructions prior to discharge. Departure - Departure Disposition: 01 Home, Self Care Clinical Impression: Abnormal laboratory test result, Splenomegaly Comments: Thank you for allowing us to care for you today at [facility]. Today in the emergency department you were evaluated for any possible dangerous or life-threatening medical emergency. All of the test performed in the emergency department today including your blood work and the CT scan of your abdomen and pelvis are reassuring. Your hemoglobin is 11.4 which is substantially improved from previous. I can only assume that your earlier low hemoglobin testing was false erroneous. There is no blood in the stool sample we collected and your CT scan does not show any acute bleed. As an incidental finding your CT scan did show a slight enlargement of your spleen and this will require careful follow-up with your primary care doctor as soon as able. Please continue to work towards follow-up with gastroenterology as you will benefit from outpatient colonoscopy/endoscopy as needed. If it anytime you have new or worsening symptoms please not hesitate to return. Forms: PCP List
[2024-01-14 10:44] LABS: BASOPHILS # (AUTO) 0.1 10^3/uL (0.0-0.1); BASOPHILS % (AUTO) 1.1 %; EOSINOPHILS # (AUTO) 0.1 10^3/uL (0.0-0.7); EOSINOPHILS % (AUTO) 1.8 %; HCT - HEMATOCRIT 38.8 % (37.0-47.0); HGB - HEMOGLOBIN 11.4 g/dL (12.0-16.0); LYMPHOCYTES # (AUTO) 0.7 10^3/uL (1.5-3.5); LYMPHOCYTES % (AUTO) 15.6 %; MEAN CORPUSCULAR HEMOGLOBIN 25.9 pg (27.0-31.0); MEAN CORPUSCULAR HGB CONC 29.4 g/dL (32.0-36.0); MEAN CORPUSCULAR VOLUME 88.2 fL (81.0-99.0); MEAN PLATELET VOLUME 9.8 fL (7.9-10.8); MONOCYTES # (AUTO) 0.4 10^3/uL (0.0-1.0); MONOCYTES % (AUTO) 10.1 %; NEUTROPHILS # (AUTO) 3.1 10^3/uL (1.5-6.6); NEUTROPHILS % (AUTO) 71.2 %; PLT - PLATELET COUNT 175 10^3/uL (130-450); WHITE BLOOD COUNT 4.4 x10^3/uL (4.8-10.8)
[2024-01-14 10:55] LABS: SLIDE REVIEW? Indicated
[2024-01-14 11:01] LABS: INR 1.1 (0.8-1.2); PT - PROTHROMBIN TIME 11.6 secs (9.9-12.6)
[2024-01-14 11:11] LABS: ALBUMIN 3.8 g/dL (3.2-5.5); ALBUMIN/GLOBULIN RATIO 1.3 (1.0-2.2); BILIRUBIN,TOTAL 0.4 mg/dL (0.2-1.0); CALCIUM 9.3 mg/dL (8.5-10.3); CREATININE 0.5 mg/dL (0.6-1.3); POTASSIUM 4.2 mmol/L (3.5-4.5); RBC MORPHOLOGY (MULTIPLE) DIMORPHIC RBCS (NORMAL); TOTAL PROTEIN 6.7 g/dL (6.4-8.9)
[2024-01-14] MEDS ORDERED: iohexoL-300 100 ML VIAL ONE (11:17)
--- NOTE | 2024-01-14 11:55 | CT Report ---
PROCEDURE: Angio Abdomen INDICATIONS: GI Bleed CONTRAST: omni, 100 TECHNIQUE: After the administration of intravenous contrast, a CT scan of the abdomen and pelvis was performed. Images were recorded and evaluated at appropriate window settings. Reformats: coronal and sagittal. F or radiation dose reduction, the following was used: automated exposure control, adjustment of mA and /or kV according to patient size. COMPARISON: 12/22/2023 FINDINGS: Image quality: Diagnostic. Lower chest: Unremarkable. Liver: No solid mass. Gallbladder: No radiopaque stones or wall thickening. Biliary tree: No intrahepatic or extrahepatic dilation, accounting for age. Spleen: Splenomegaly, measuring 11.9 x 4.9 x 12 cm.. Pancreas: No pancreatic ductal dilation. Adrenals: No adrenal nodule. Kidneys and ureters: No hydronephrosis. No renal cystic lesion which requires follow up. No solid mas s. Stomach, bowel and peritoneum: No gastric or small bowel dilation. No abnormal wall thickening. No pa thologic free fluid. Diverticulosis without evidence of diverticulitis. Lymph nodes: No central or retroperitoneal adenopathy. Vessels: No infrarenal aortic aneurysm. Patent portal vein. PELVIS Reproductive organs: Unremarkable. Bladder: No abnormal wall thickening, accounting for underdistention. Pelvic lymph nodes: No pelvic adenopathy by size criteria. Bones: No aggressive osseous abnormality. Degenerative changes of the spine. Severe degenerative llanes ges of the left hip, with subchondral cystic change, joint space narrowing and early bony deformity. Other: No significant ventral or inguinal hernia. IMPRESSION: No evidence of active GI hemorrhage. No diverticulitis or colitis. Severe left hip osteoarthritis. Kellgren-Damián scale of osteoarthritis: 3. Splenomegaly, which may indicate lymphoma. Reviewed by: Hans Graham MD on 01/14/2024 11:53 AM PDT Approved by: Hans Graham MD on 01/14/2024 11:53 AM PDT Station ID: [id number]
[2024-01-14 13:12] VITALS: BP 125/70; O2SAT 95
[2024-01-14] MEDS: iohexoL-300 100 ML VIAL IVP ONE (17:37)
== END 2024-01-14 13:07 | disposition home or self-care (01) ==
LOC: EDUNIT# → ED 10:08
DX: R79.89 Other specified abnormal findings of blood chemistry (principal); R16.1 Splenomegaly, not elsewhere classified; F17.200 Nicotine dependence, unspecified, uncomplicated
CPT/HCPCS: 36415; 74175; 80053; 82272; 83605; 83690; 84484; 85025; 85610; 86850; 86900; 86901; 93005; 99283; 99284; Q9967; 82274